=== PATIENT | female | born 1955 | race Caucasian/White ===

== ENCOUNTER 2018-11-01 18:14 | Inpatient (IN) | payer MEDICAID ==
[~2018-11-01] VITALS: Ht 162.6 cm; Wt 73.3 kg
[~2018-11-01 18:14] MED LIST: AMLO5TAB4 PO; BUDE0.25 NEB; DEXT15DR5 EACHEYE; FAMO40TA70 PO; METO-293 PO; OXYM30SP26 BOTHNSTRLS; POLY17PO3 PO; TRAM50TA3 PO
[2018-11-01 19:49] LABS: HEMATOCRIT. 35.5 % (36.0-48.0); HEMOGLOBIN. 11.1 g/dL (12.0-16.0); MEAN CORPUSCULAR HEMOGLOBIN 24.5 pg (28.0-32.0); MEAN CORPUSCULAR VOLUME 78.3 fL (81.0-99.0); MEAN PLATELET VOLUME 7.8 fl (7.4-10.4); PLATELET 510 x1000/uL (130-400); RED BLOOD CELL COUNT 4.53 mill/uL (4.2-5.4); RED CELL DISTRIBUTION WIDTH 16.3 % (11.6-14.6)
[2018-11-01 19:54] LABS: CHLORIDE 100 mEq/L (98-107)
[2018-11-01] MEDS ORDERED: CEFTRIAXONE 1 G PREMIX 50 ML IV ONE (19:59)
[2018-11-01] MEDS ORDERED: VANCOMYCIN 1 G PREMIX 200 ML IV ONE (19:59)
[2018-11-01] MEDS ORDERED: SODIUM CHLORIDE 0.9% 1000ML BAG (SEPSIS BOLUS) IV ONE (20:00)
[2018-11-01 20:21] LABS: PLATELET ESTIMATE INCREASED
[2018-11-01] MEDS ORDERED: CEFEPIME 1,000 MG in DEXTROSE 5% WATER 50 ML IV STA (21:06)
[2018-11-01 21:35] LABS: BG BASE EXCESS 2.4 mmol/L (-2.0-2.0); BG DEOXYHEMOGLOBIN 0.6 % (0.0-5.0); BG FRACTION INSPIRED OXYGEN 100; BG METHEMOGLOBIN 0.3 % (0.0-1.5); BG OXYGEN SATURATION 99.4 % (92.0-98.5); BG OXYHEMOGLOBIN 98.1 % (94.0-97.0); BG PCO2 46.6 mmHg (35.0-45.0); BG PH 7.396 (7.350-7.450); BG PIP 36 cmH2O; BG PO2 281.3 mmHg (75.0-100.0); BG SAMPLE SITE LEFT RADIAL; BG TIDAL VOLUME(mL) 500 mL; BG TOTAL HEMOGLOBIN 14.5 g/dL (12.0-18.0); BG VENT MODE VENT - A/C; BG VENT RATE 12 set
[2018-11-01 21:48] LABS: CLARITY URINE TURBID (CLEAR); COLOR URINE ORANGE (YELLOW); KETONES URINE 1+ (NEGATIVE); LEUKOCYTE ESTERASE URINE TRACE (NEGATIVE); NITRITE URINE NEGATIVE (NEGATIVE); OCCULT BLOOD URINE 3+ (NEGATIVE); PROTEIN URINE 3+ (NEGATIVE); SPECIFIC GRAVITY URINE 1.019 (1.005-1.030); UROBILINOGEN URINE 0.2 E.U./dL (0.2-1.0)
[2018-11-01] MEDS ORDERED: ENOXAPARIN 80MG/0.8ML SYR SUBCUT ONE (22:15)
[2018-11-01] MEDS ORDERED: ENOXAPARIN 80MG/0.8ML SYR SUBCUT SCH (23:22)
[2018-11-02] VITALS (10 sets, daily range): BP systolic 97–146; BP diastolic 59–84
[2018-11-02] MEDS ORDERED: CLON0.1T PO (08:10)
[2018-11-02] MEDS ORDERED: NA P133E RC (08:10)
[2018-11-02] MEDS ORDERED: IBUP-2028 PO (08:10)
[2018-11-02] MEDS ORDERED: MOM MT (08:10)
[2018-11-02] MEDS ORDERED: BISA10SU8 RC (08:10)
[2018-11-02] MEDS ORDERED: POLY17PO3 PO (08:10)
[2018-11-02] MEDS ORDERED: ACET-2178 PO (08:18)
[2018-11-02] MEDS ORDERED: ONDA4TAB5 PO (08:18)
[2018-11-02] MEDS ORDERED: ALBU4TAB6 ENDO (08:18)
[2018-11-02] MEDS ORDERED: ACET325C5 GT (08:18)
[2018-11-02] MEDS ORDERED: ALBU05 NEB (08:24)
[2018-11-02] MEDS ORDERED: CLONIDINE 0.1MG TABLET PO PRN (09:30)
[2018-11-02] MEDS: PANTOPRAZOLE SODIUM 40 MG/VIAL IV SCH (09:59)
[2018-11-02] MEDS: PIPERACILLIN/TAZ 3.375G PREMIX 50 ML IV SCH ×3 (10:15→23:22)
[2018-11-02] MEDS ORDERED: VANCOMYCIN 1 G PREMIX 200 ML IV SCH (11:00)
[2018-11-02 11:53] LABS: HEMATOCRIT 32.4 % (36.0-48.0); HEMOGLOBIN 10.3 g/dL (12.0-16.0); MEAN CORPUSCULAR HEMOGLOBIN 24.9 pg (28.0-32.0); MEAN CORPUSCULAR VOLUME 78.5 fL (81.0-99.0); PLATELET 390 x1000/uL (130-400); RED BLOOD CELL COUNT 4.13 mill/uL (4.2-5.4); RED CELL DISTRIBUTION WIDTH 16.3 % (11.6-14.6)
[2018-11-02] MEDS: IPRATROPIUM/ALBUTEROL 0.5-3(2.5)MG/3ML NEB HHN SCH ×3 (12:20→20:11)
[2018-11-02 16:04] LABS: CHLORIDE 103 mEq/L (98-107)
[2018-11-02] MEDS: KCL 10MEQ/50ML PREMIX 50 ML IV SCH ×3 (19:55→22:06)
[2018-11-02] MEDS ORDERED: FUROSEMIDE 40MG/4ML VIAL IVP NR (22:00)
[2018-11-02] MEDS ORDERED: ACETAMINOPHEN 650MG/20.3ML UDC PO PRN (22:00)
[2018-11-02] MEDS ORDERED: SODIUM CHLORIDE 0.9% 1,000 ML IV SCH (22:00)
[2018-11-02] MEDS: ENOXAPARIN 40MG/0.4ML SYR SUBCUT SCH (22:15)
[2018-11-02] MEDS: LOSARTAN POTASSIUM 50 MG TABLET PO SCH (22:59)
[2018-11-03] VITALS (13 sets, daily range): BP systolic 92–124; BP diastolic 53–71
[2018-11-03] MEDS: IPRATROPIUM/ALBUTEROL 0.5-3(2.5)MG/3ML NEB HHN SCH ×7 (00:17→23:43)
[2018-11-03] MEDS: PIPERACILLIN/TAZ 3.375G PREMIX 50 ML IV SCH ×4 (03:21→21:15)
[2018-11-03 08:44] LABS: BASOPHILS % 0.6 % (0.0-2.0); EOSINOPHILS % 2.1 % (0.0-5.0); HEMATOCRIT. 30.4 % (36.0-48.0); HEMOGLOBIN. 9.7 g/dL (12.0-16.0); LYMPHOCYTES % 12.1 % (20.0-50.0); MEAN CORPUSCULAR HEMOGLOBIN 24.9 pg (28.0-32.0); MEAN CORPUSCULAR VOLUME 77.6 fL (81.0-99.0); MEAN PLATELET VOLUME 7.6 fl (7.4-10.4); NEUTROPHILS % 76.2 % (40.0-76.0); PLATELET 392 x1000/uL (130-400); RED BLOOD CELL COUNT 3.92 mill/uL (4.2-5.4); RED CELL DISTRIBUTION WIDTH 16.8 % (11.6-14.6)
[2018-11-03] MEDS: ENOXAPARIN 40MG/0.4ML SYR SUBCUT SCH (09:00)
[2018-11-03] MEDS: LOSARTAN POTASSIUM 50 MG TABLET PO SCH ×2 (09:00→21:00)
[2018-11-03] MEDS: FUROSEMIDE 40MG/4ML VIAL IVP SCH (09:00)
[2018-11-03] MEDS: PANTOPRAZOLE SODIUM 40 MG/VIAL IV SCH (09:10)
[2018-11-03 09:33] LABS: CHLORIDE 102 mEq/L (98-107)
[2018-11-03] MEDS ORDERED: KCL 20MEQ/100ML PREMIX 100 ML IV NR (20:00)
[2018-11-03] MEDS ORDERED: POTASSIUM CHLORIDE 20MEQ TABLET SR PO NR (20:30)
[2018-11-04] VITALS (11 sets, daily range): BP systolic 101–124; BP diastolic 52–77
[2018-11-04] MEDS: IPRATROPIUM/ALBUTEROL 0.5-3(2.5)MG/3ML NEB HHN SCH ×6 (04:06→19:50)
[2018-11-04] MEDS: PIPERACILLIN/TAZ 3.375G PREMIX 50 ML IV SCH ×2 (05:07→10:41)
[2018-11-04 06:29] LABS: BASOPHILS % 0.6 % (0.0-2.0); EOSINOPHILS % 1.9 % (0.0-5.0); HEMATOCRIT. 32.1 % (36.0-48.0); HEMOGLOBIN. 10.1 g/dL (12.0-16.0); LYMPHOCYTES % 11.5 % (20.0-50.0); MEAN CORPUSCULAR HEMOGLOBIN 24.5 pg (28.0-32.0); MEAN CORPUSCULAR VOLUME 78.1 fL (81.0-99.0); MEAN PLATELET VOLUME 7.8 fl (7.4-10.4); MONOCYTES % 9.7 % (2.0-8.0); NEUTROPHILS % 76.3 % (40.0-76.0); PLATELET 374 x1000/uL (130-400); RED BLOOD CELL COUNT 4.11 mill/uL (4.2-5.4); RED CELL DISTRIBUTION WIDTH 16.4 % (11.6-14.6)
[2018-11-04 06:55] LABS: CHLORIDE 104 mEq/L (98-107)
[2018-11-04] MEDS: FUROSEMIDE 40MG/4ML VIAL IVP SCH (08:22)
[2018-11-04] MEDS: FAMOTIDINE 20MG/2ML VIAL IV SCH ×2 (08:22→20:27)
[2018-11-04] MEDS: ENOXAPARIN 40MG/0.4ML SYR SUBCUT SCH (08:25)
[2018-11-04] MEDS: LOSARTAN POTASSIUM 50 MG TABLET PO SCH ×2 (08:25→20:27)
[2018-11-04] MEDS ORDERED: DOCUSATE SODIUM 100MG CAPSULE PO PRN (15:15)
[2018-11-04] MEDS ORDERED: ACETAMINOPHEN 650MG/20.3ML UDC PO PRN (15:15)
[2018-11-04] MEDS ORDERED: DIPHENHYDRAMINE 50MG/ML VIAL IV PRN (15:15)
[2018-11-04] MEDS ORDERED: HYDROCODONE/ACETAMINOPHEN 5/325MG TABLET PO PRN (15:15)
[2018-11-04] MEDS ORDERED: DEXTROSE 50% WATER 50ML SYRINGE IV PRN (15:15)
[2018-11-04] MEDS ORDERED: ACETAMINOPHEN 650MG SUPP PR PRN (15:15)
[2018-11-04] MEDS ORDERED: LEVOFLOXACIN 500MG PREMIX 100 ML IV SCH (17:00)
[2018-11-04] MEDS: BLOOD SUGAR DIAGNOSTIC STRIP TEST SCH ×3 (17:30→20:23)
[2018-11-04 17:42] LABS: BG BASE EXCESS 2.8 mmol/L (-2.0-2.0); BG CARBOXYHEMOGLOBIN 1.1 % (0.5-1.5); BG DEOXYHEMOGLOBIN 0.8 % (0.0-5.0); BG FRACTION INSPIRED OXYGEN 40; BG HCO3 ACT 26.6 mmol/L (22.0-26.0); BG METHEMOGLOBIN 0.3 % (0.0-1.5); BG OXYGEN SATURATION 99.2 % (92.0-98.5); BG OXYHEMOGLOBIN 97.8 % (94.0-97.0); BG PCO2 37.8 mmHg (35.0-45.0); BG PH 7.465 (7.350-7.450); BG SAMPLE SITE LEFT RADIAL; BG TIDAL VOLUME(mL) 500 mL; BG TOTAL HEMOGLOBIN 10.7 g/dL (12.0-18.0); BG VENT MODE VENT - A/C; BG VENT RATE 12 set
[2018-11-04] MEDS: BUDESONIDE 0.5MG/2ML NEB HHN SCH (19:50)
[2018-11-05] VITALS (12 sets, daily range): BP systolic 101–126; BP diastolic 55–76
[2018-11-05] MEDS: IPRATROPIUM/ALBUTEROL 0.5-3(2.5)MG/3ML NEB HHN SCH ×6 (00:15→23:40)
[2018-11-05 07:04] LABS: HEMATOCRIT 29.2 % (36.0-48.0); HEMOGLOBIN 9.4 g/dL (12.0-16.0); MEAN CORPUSCULAR HEMOGLOBIN 24.9 pg (28.0-32.0); MEAN CORPUSCULAR VOLUME 77.1 fL (81.0-99.0); PLATELET 367 x1000/uL (130-400); RED BLOOD CELL COUNT 3.78 mill/uL (4.2-5.4); RED CELL DISTRIBUTION WIDTH 16.5 % (11.6-14.6)
[2018-11-05 07:24] LABS: CHLORIDE 104 mEq/L (98-107)
[2018-11-05] MEDS: BLOOD SUGAR DIAGNOSTIC STRIP TEST SCH ×4 (07:30→21:00)
[2018-11-05] MEDS: BUDESONIDE 0.5MG/2ML NEB HHN SCH ×2 (08:22→19:35)
[2018-11-05] MEDS: ENOXAPARIN 40MG/0.4ML SYR SUBCUT SCH (09:00)
[2018-11-05] MEDS: FAMOTIDINE 20MG/2ML VIAL IV SCH ×2 (09:25→21:23)
[2018-11-05] MEDS: LOSARTAN POTASSIUM 50 MG TABLET PO SCH ×2 (09:25→21:23)
[2018-11-05] MEDS ORDERED: POTASSIUM CHLORIDE 20MEQ TABLET SR PO NR (10:38)
[2018-11-05] MEDS: METHYLPREDNISOLONE SOD SUCC 40 MG/ML VIAL IV SCH (12:01)
[2018-11-05 14:27] LABS: BG BASE EXCESS 1.2 mmol/L (-2.0-2.0); BG CARBOXYHEMOGLOBIN 0.5 % (0.5-1.5); BG CPAP (cmH2O) 0 cm(H2O); BG HCO3 ACT 25.6 mmol/L (22.0-26.0); BG METHEMOGLOBIN 0.3 % (0.0-1.5); BG OXYHEMOGLOBIN 98.2 % (94.0-97.0); BG PCO2 39.8 mmHg (35.0-45.0); BG PH 7.427 (7.350-7.450); BG PO2 166.6 mmHg (75.0-100.0); BG SAMPLE SITE RIGHT RADIAL; BG TOTAL HEMOGLOBIN 10.9 g/dL (12.0-18.0); BG VENT MODE VENT - CPAP
[2018-11-05] MEDS ORDERED: LIDOCAINE HCL/PF 1% 2ML VIAL ONE (14:59)
[2018-11-05] MEDS ORDERED: LEVOFLOXACIN 500MG TABLET PO SCH (16:49)
[2018-11-06] VITALS (13 sets, daily range): BP systolic 123–153; BP diastolic 56–93
[2018-11-06] MEDS: IPRATROPIUM/ALBUTEROL 0.5-3(2.5)MG/3ML NEB HHN SCH ×6 (04:16→23:51)
[2018-11-06] MEDS: BLOOD SUGAR DIAGNOSTIC STRIP TEST SCH ×4 (07:30→21:00)
[2018-11-06] MEDS: LOSARTAN POTASSIUM 50 MG TABLET PO SCH ×2 (08:40→21:20)
[2018-11-06] MEDS: FAMOTIDINE 20MG/2ML VIAL IV SCH ×2 (08:41→21:20)
[2018-11-06] MEDS: METHYLPREDNISOLONE SOD SUCC 40 MG/ML VIAL IV SCH ×3 (08:41→21:20)
[2018-11-06] MEDS: BUDESONIDE 0.5MG/2ML NEB HHN SCH ×2 (08:59→20:34)
[2018-11-06] MEDS: ENOXAPARIN 40MG/0.4ML SYR SUBCUT SCH (09:00)
[2018-11-06] MEDS: LEVOFLOXACIN 500MG TABLET PO SCH (10:19)
[2018-11-06 11:52] LABS: BG BASE EXCESS -3.6 mmol/L (-2.0-2.0); BG CARBOXYHEMOGLOBIN 0.8 % (0.5-1.5); BG DEOXYHEMOGLOBIN 0.9 % (0.0-5.0); BG FRACTION INSPIRED OXYGEN 35; BG HCO3 ACT 17.9 mmol/L (22.0-26.0); BG METHEMOGLOBIN 0.3 % (0.0-1.5); BG OXYGEN SATURATION 99.1 % (92.0-98.5); BG PCO2 22.6 mmHg (35.0-45.0); BG PH 7.517 (7.350-7.450); BG PO2 149.4 mmHg (75.0-100.0); BG SAMPLE SITE RIGHT RADIAL; BG TIDAL VOLUME(mL) 500 mL; BG TOTAL HEMOGLOBIN 10.4 g/dL (12.0-18.0); BG VENT MODE VENT - A/C; BG VENT RATE 12 set
[2018-11-06 18:47] LABS: HEMATOCRIT 32.8 % (36.0-48.0); HEMOGLOBIN 10.5 g/dL (12.0-16.0); MEAN CORPUSCULAR HEMOGLOBIN 24.8 pg (28.0-32.0); MEAN CORPUSCULAR VOLUME 77.8 fL (81.0-99.0); PLATELET 386 x1000/uL (130-400); RED BLOOD CELL COUNT 4.22 mill/uL (4.2-5.4); RED CELL DISTRIBUTION WIDTH 16.6 % (11.6-14.6)
[2018-11-06 19:05] LABS: CHLORIDE 104 mEq/L (98-107)
[2018-11-07] VITALS (13 sets, daily range): BP systolic 117–163; BP diastolic 65–99
[2018-11-07] MEDS: IPRATROPIUM/ALBUTEROL 0.5-3(2.5)MG/3ML NEB HHN SCH ×5 (04:00→19:46)
[2018-11-07] MEDS: METHYLPREDNISOLONE SOD SUCC 40 MG/ML VIAL IV SCH ×2 (06:35→13:37)
[2018-11-07] MEDS: BLOOD SUGAR DIAGNOSTIC STRIP TEST SCH ×4 (07:30→21:00)
[2018-11-07] MEDS: BUDESONIDE 0.5MG/2ML NEB HHN SCH (07:56)
[2018-11-07] MEDS: ENOXAPARIN 40MG/0.4ML SYR SUBCUT SCH (08:49)
[2018-11-07] MEDS: LOSARTAN POTASSIUM 50 MG TABLET PO SCH ×2 (08:50→20:43)
[2018-11-07] MEDS: FAMOTIDINE 20MG/2ML VIAL IV SCH ×2 (08:50→20:43)
[2018-11-07] MEDS ORDERED: LORAZEPAM 2MG/ML CPJ IV PRN (10:30)
[2018-11-07] MEDS: LEVOFLOXACIN 500MG TABLET PO SCH (11:28)
== END 2018-11-07 23:30 | DRG 720 ==
LOC: ER 18:14 → 5EST 21:05 → ENRESERV 23:12 → EDBEDREQSVC 11-02 01:02 → EDBEDREQTM 11-02 01:02 → ENRESERV 11-02 01:07
PROVIDERS: ADMIT Internal Medicine; ATTEND Internal Medicine
PROC: 5A1955Z Respiratory Ventilation, Greater than 96 Consecutive Hours (ICD-10-PCS; principal; 2018-11-01)
DX: A41.9 Sepsis, unspecified organism (principal); J96.21 Acute and chronic respiratory failure with hypoxia; J95.851 Ventilator associated pneumonia; E87.70 Fluid overload, unspecified; J44.1 Chronic obstructive pulmonary disease with (acute) exacerbation; E11.649 Type 2 diabetes mellitus with hypoglycemia without coma; E87.3 Alkalosis; F41.9 Anxiety disorder, unspecified; K21.9 Gastro-esophageal reflux disease without esophagitis; I10 Essential (primary) hypertension; J44.0 Chronic obstructive pulmonary disease with (acute) lower respiratory infection; F32.9 Major depressive disorder, single episode, unspecified; N39.0 Urinary tract infection, site not specified; R79.1 Abnormal coagulation profile; Y95 Nosocomial condition; Z93.0 Tracheostomy status; Z99.11 Dependence on respirator [ventilator] status; Z88.8 Allergy status to other drugs, medicaments and biological substances
CPT/HCPCS: 36415; 36600; 71045; 71250; 76604; 78580; 80048; 80202; 82375; 82805; 83605; 83735; 83880; 84145; 84443; 84484; 85027; 85379; 86300; 87070; 87077; 87186; 93005; 93306; 93970; 93971; 94002; 94003; 94640; 96365; 96366; 96368; 96375; 99291; C9113; J0692; J0696; J1650; J1940; J1956; J2060; J2543; J2920; J3370; J3480; J3490; J7030; J7050; J7060; J7620; J7626

== ENCOUNTER 2019-02-15 14:13 | Inpatient (IN) | payer MEDICAID ==
[~2019-02-15] VITALS: Ht 162.6 cm; Wt 78.5 kg
[~2019-02-15 14:13] MED LIST changes: +ACET-2178 PO; +ACET325C5 GT; +ALBU05 NEB; +ALBU4TAB6 ENDO; +BISA10SU8 RC; +CLON0.1T PO; +IBUP-2028 PO; +MOM MT; +NA P133E RC; +ONDA4TAB5 PO; -POLY17PO3 PO
[2019-02-15] MEDS ORDERED: PIPERACILLIN/TAZ 3.375G PREMIX 50 ML IV ONE (15:00)
[2019-02-15] MEDS ORDERED: VANCOMYCIN 1 G PREMIX 200 ML IV ONE (15:00)
[2019-02-15] MEDS ORDERED: SODIUM CHLORIDE 0.9% 1000ML BAG (SEPSIS BOLUS) IV ONE (15:00)
[2019-02-15 15:22] LABS: HEMATOCRIT. 31.4 % (36.0-48.0); MEAN CORPUSCULAR HEMOGLOBIN 25.5 pg (28.0-32.0); MEAN CORPUSCULAR VOLUME 80.1 fL (81.0-99.0); MEAN PLATELET VOLUME 7.3 fl (7.4-10.4); PLATELET 333 x1000/uL (130-400); RED BLOOD CELL COUNT 3.92 mill/uL (4.2-5.4); RED CELL DISTRIBUTION WIDTH 17.4 % (11.6-14.6)
[2019-02-15 15:24] LABS: BG BASE EXCESS -0.7 mmol/L (-2.0-2.0); BG CARBOXYHEMOGLOBIN 0.3 % (0.5-1.5); BG DEOXYHEMOGLOBIN 2.9 % (0.0-5.0); BG HCO3 ACT 22.8 mmol/L (22.0-26.0); BG METHEMOGLOBIN 0.2 % (0.0-1.5); BG OXYGEN SATURATION 97.1 % (92.0-98.5); BG OXYHEMOGLOBIN 96.6 % (94.0-97.0); BG PCO2 33.1 mmHg (35.0-45.0); BG PH 7.456 (7.350-7.450); BG PO2 88.2 mmHg (75.0-100.0); BG SAMPLE SITE RIGHT RADIAL; BG TIDAL VOLUME(mL) 500 mL; BG TOTAL HEMOGLOBIN 10.1 g/dL (12.0-18.0); BG VENT MODE VENT - A/C; BG VENT RATE 12 set
[2019-02-15 15:26] LABS: CHLORIDE 102 mEq/L (98-107)
[2019-02-15 15:27] LABS: PARTIAL THROMBOPLASTIN TIME 28.5 sec (23.4-31.0); PROTHROMBIN TIME 9.8 sec (9.1-11.1)
[2019-02-15 17:09] LABS: PLATELET ESTIMATE NORMAL
[2019-02-15 19:17] LABS: CLARITY URINE CLOUDY (CLEAR); COLOR URINE YELLOW (YELLOW); KETONES URINE NEGATIVE (NEGATIVE); LEUKOCYTE ESTERASE URINE NEGATIVE (NEGATIVE); NITRITE URINE NEGATIVE (NEGATIVE); OCCULT BLOOD URINE 3+ (NEGATIVE); PH URINE 5.5 (4.5-8.0); PROTEIN URINE 2+ (NEGATIVE); SPECIFIC GRAVITY URINE 1.022 (1.005-1.030); UROBILINOGEN URINE 0.2 E.U./dL (0.2-1.0)
[2019-02-16] VITALS (13 sets, daily range): BP systolic 89–151; BP diastolic 50–73
[2019-02-16] MEDS ORDERED: PIPERACILLIN/TAZ 3.375G PREMIX 50 ML IV SCH (02:45)
[2019-02-16] MEDS ORDERED: ACETAMINOPHEN 325 MG PO SCH (02:45)
[2019-02-16] MEDS ORDERED: ACETAMINOPHEN 650MG/20.3ML UDC PO PRN (03:00)
[2019-02-16] MEDS: ACETAMINOPHEN 325MG TABLET PO PRN ×2 (03:23→16:26)
[2019-02-16] MEDS: ALBUTEROL (0.083%) 2.5MG/3ML NEB HHN SCH ×5 (04:10→22:54)
[2019-02-16] MEDS: VANCOMYCIN 1 G PREMIX 200 ML IV SCH ×2 (04:31→16:26)
[2019-02-16] MEDS: PIPERACILLIN/TAZ 3.375G PREMIX 50 ML IV SCH ×4 (04:31→23:53)
[2019-02-16 06:44] LABS: BASOPHILS % 0.2 % (0.0-2.0); EOSINOPHILS % 0.1 % (0.0-5.0); HEMATOCRIT. 27.2 % (36.0-48.0); HEMOGLOBIN. 8.7 g/dL (12.0-16.0); MEAN CORPUSCULAR HEMOGLOBIN 25.3 pg (28.0-32.0); MEAN CORPUSCULAR VOLUME 78.7 fL (81.0-99.0); MEAN PLATELET VOLUME 7.3 fl (7.4-10.4); MONOCYTES % 11.3 % (2.0-8.0); NEUTROPHILS % 76.4 % (40.0-76.0); PLATELET 333 x1000/uL (130-400); RED BLOOD CELL COUNT 3.45 mill/uL (4.2-5.4); RED CELL DISTRIBUTION WIDTH 17.2 % (11.6-14.6)
[2019-02-16 06:53] LABS: CHLORIDE 107 mEq/L (98-107)
[2019-02-16] MEDS: BUDESONIDE 0.5MG/2ML NEB HHN SCH ×2 (08:31→20:09)
[2019-02-16] MEDS ORDERED: HEPARIN 5000 UNITS/ML VIAL SUBCUT SCH (09:00)
[2019-02-16] MEDS ORDERED: LORAZEPAM 2MG/ML CPJ IV PRN (15:00)
[2019-02-16] MEDS ORDERED: CLONIDINE 0.1MG TABLET PO PRN (15:00)
[2019-02-16] MEDS ORDERED: ONDANSETRON HCL 4MG/2ML INJ IV PRN (15:00)
[2019-02-16] MEDS ORDERED: HYDROCODONE/ACETAMINOPHEN 5/325MG TABLET PO PRN (15:00)
[2019-02-16] MEDS ORDERED: DEXTROSE 50% WATER 50ML SYRINGE IV PRN (15:00)
[2019-02-16] MEDS ORDERED: DIPHENHYDRAMINE 50MG/ML VIAL IV PRN (15:00)
[2019-02-16] MEDS: METHYLPREDNISOLONE SOD SUCC 40 MG/ML VIAL IV SCH ×2 (16:26→23:53)
[2019-02-16] MEDS: BLOOD SUGAR DIAGNOSTIC STRIP TEST SCH ×2 (17:42→21:00)
[2019-02-16] MEDS: INSULIN LISPRO 100 UNITS/ML SUBCUT SCH ×2 (18:23→22:29)
[2019-02-16] MEDS: MAGNESIUM HYDROXIDE 400MG/5ML 30ML UDC PO SCH (21:41)
[2019-02-17] VITALS (10 sets, daily range): BP systolic 102–141; BP diastolic 54–79
[2019-02-17] MEDS: ALBUTEROL (0.083%) 2.5MG/3ML NEB HHN SCH ×8 (02:15→23:59)
[2019-02-17 03:46] LABS: CHLORIDE 107 mEq/L (98-107)
[2019-02-17 03:52] LABS: TOTAL IRON BINDING CAPACITY 446 ug/dL (250-450)
[2019-02-17] MEDS: VANCOMYCIN 1 G PREMIX 200 ML IV SCH (04:02)
[2019-02-17 04:11] LABS: HEMATOCRIT 29.1 % (36.0-48.0); HEMOGLOBIN 9.1 g/dL (12.0-16.0); MEAN CORPUSCULAR HEMOGLOBIN 25.2 pg (28.0-32.0); RED BLOOD CELL COUNT 3.59 mill/uL (4.2-5.4); RED CELL DISTRIBUTION WIDTH 17.6 % (11.6-14.6)
[2019-02-17 04:28] LABS: PLATELET 373 x1000/uL (130-400)
[2019-02-17] MEDS: PIPERACILLIN/TAZ 3.375G PREMIX 50 ML IV SCH ×4 (06:16→23:26)
[2019-02-17] MEDS: BLOOD SUGAR DIAGNOSTIC STRIP TEST SCH ×4 (07:30→21:00)
[2019-02-17] MEDS: METHYLPREDNISOLONE SOD SUCC 40 MG/ML VIAL IV SCH ×3 (08:52→23:26)
[2019-02-17] MEDS: BUDESONIDE 0.5MG/2ML NEB HHN SCH ×2 (08:55→20:24)
[2019-02-17] MEDS: INSULIN LISPRO 100 UNITS/ML SUBCUT SCH ×4 (08:56→21:29)
[2019-02-17] MEDS ORDERED: IOHEXOL-300 100 ML BOTTLE ONE (09:34)
[2019-02-17] MEDS: ACETAMINOPHEN 325MG TABLET PO PRN (10:49)
[2019-02-17] MEDS ORDERED: DEXTROSE 50% WATER 50ML SYRINGE IV PRN (14:00)
[2019-02-17] MEDS ORDERED: INSULIN LISPRO 100 UNITS/ML SUBCUT NR ×2 (14:00→18:00)
[2019-02-17] MEDS: VANCOMYCIN 1250MG in DEXTROSE 5% WATER 250ML IV SCH (15:26)
[2019-02-17] MEDS: MAGNESIUM HYDROXIDE 400MG/5ML 30ML UDC PO SCH (21:00)
[2019-02-17] MEDS: INSULIN GLARGINE UD 100 UNITS/ML SYR SUBCUT SCH (21:29)
[2019-02-18] VITALS (24 sets, daily range): BP systolic 102–174; BP diastolic 54–98
[2019-02-18] MEDS: VANCOMYCIN 1250MG in DEXTROSE 5% WATER 250ML IV SCH ×2 (03:14→15:08)
[2019-02-18] MEDS: ALBUTEROL (0.083%) 2.5MG/3ML NEB HHN SCH ×6 (04:27→22:36)
[2019-02-18] MEDS: PIPERACILLIN/TAZ 3.375G PREMIX 50 ML IV SCH ×4 (06:13→23:16)
[2019-02-18] MEDS: BLOOD SUGAR DIAGNOSTIC STRIP TEST SCH ×4 (07:30→21:19)
[2019-02-18] MEDS: METHYLPREDNISOLONE SOD SUCC 40 MG/ML VIAL IV SCH ×2 (08:39→23:49)
[2019-02-18] MEDS: INSULIN LISPRO 100 UNITS/ML SUBCUT SCH ×4 (08:41→21:42)
[2019-02-18] MEDS: BUDESONIDE 0.5MG/2ML NEB HHN SCH ×2 (08:58→22:36)
[2019-02-18] MEDS: INSULIN GLARGINE UD 100 UNITS/ML SYR SUBCUT SCH (10:46)
[2019-02-18 11:27] LABS: HEMATOCRIT 29.1 % (36.0-48.0); HEMOGLOBIN 9.4 g/dL (12.0-16.0); PLATELET 415 x1000/uL (130-400); RED BLOOD CELL COUNT 3.74 mill/uL (4.2-5.4); RED CELL DISTRIBUTION WIDTH 17.1 % (11.6-14.6)
[2019-02-18 11:35] LABS: CHLORIDE 106 mEq/L (98-107)
[2019-02-18] MEDS ORDERED: SODIUM BICARBONATE 4% (2.4MEQ) 5ML VIAL IV ONE (13:27)
[2019-02-18 13:31] LABS: BG BASE EXCESS 2.9 mmol/L (-2.0-2.0); BG CARBOXYHEMOGLOBIN 0.3 % (0.5-1.5); BG DEOXYHEMOGLOBIN 2.8 % (0.0-5.0); BG HCO3 ACT 25.3 mmol/L (22.0-26.0); BG METHEMOGLOBIN 0.2 % (0.0-1.5); BG OXYGEN SATURATION 97.2 % (92.0-98.5); BG OXYHEMOGLOBIN 96.7 % (94.0-97.0); BG PCO2 30.5 mmHg (35.0-45.0); BG PH 7.536 (7.350-7.450); BG PO2 88.3 mmHg (75.0-100.0); BG SAMPLE SITE RIGHT RADIAL; BG TIDAL VOLUME(mL) 450 mL; BG TOTAL HEMOGLOBIN 9.4 g/dL (12.0-18.0); BG VENT MODE VENT - A/C; BG VENT RATE 12 set
[2019-02-18] MEDS: ACETAMINOPHEN 325MG TABLET PO PRN (15:07)
[2019-02-18 20:18] LABS: BG BASE EXCESS 0.6 mmol/L (-2.0-2.0); BG CARBOXYHEMOGLOBIN 0.4 % (0.5-1.5); BG FRACTION INSPIRED OXYGEN 100; BG HCO3 ACT 25.5 mmol/L (22.0-26.0); BG METHEMOGLOBIN 0.2 % (0.0-1.5); BG OXYGEN SATURATION 60.8 % (92.0-98.5); BG OXYHEMOGLOBIN 60.4 % (94.0-97.0); BG PCO2 41.9 mmHg (35.0-45.0); BG PEEP (cmH2O) 0 cmH2O; BG PH 7.402 (7.350-7.450); BG PIP 21 cmH2O; BG PO2 31.9 mmHg (75.0-100.0); BG SAMPLE SITE RIGHT RADIAL; BG TIDAL VOLUME(mL) 450 mL; BG TOTAL HEMOGLOBIN 13.8 g/dL (12.0-18.0); BG VENT MODE VENT - A/C; BG VENT RATE 12 set
[2019-02-18] MEDS ORDERED: METHYLPREDNISOLONE SOD SUCC 40 MG/ML VIAL IV SCH (21:00)
[2019-02-18] MEDS: MAGNESIUM HYDROXIDE 400MG/5ML 30ML UDC PO SCH (21:41)
[2019-02-18] MEDS: LORAZEPAM 2MG/ML CPJ IV PRN (22:15)
[2019-02-18 23:56] LABS: BG CARBOXYHEMOGLOBIN 0.1 % (0.5-1.5); BG DEOXYHEMOGLOBIN 12.9 % (0.0-5.0); BG FRACTION INSPIRED OXYGEN 100; BG HCO3 ACT 25.4 mmol/L (22.0-26.0); BG METHEMOGLOBIN 0.2 % (0.0-1.5); BG OXYGEN SATURATION 87.1 % (92.0-98.5); BG OXYHEMOGLOBIN 86.8 % (94.0-97.0); BG PCO2 44.2 mmHg (35.0-45.0); BG PH 7.377 (7.350-7.450); BG PO2 56.1 mmHg (75.0-100.0); BG SAMPLE SITE RIGHT RADIAL; BG TIDAL VOLUME(mL) 450 mL; BG TOTAL HEMOGLOBIN 12.8 g/dL (12.0-18.0); BG VENT MODE VENT - A/C; BG VENT RATE 12 set
[2019-02-19] VITALS (96 sets, daily range): BP systolic 96–179; BP diastolic 52–109
[2019-02-19] MEDS: ALBUTEROL (0.083%) 2.5MG/3ML NEB HHN SCH ×8 (00:27→20:11)
[2019-02-19] MEDS: VANCOMYCIN 1250MG in DEXTROSE 5% WATER 250ML IV SCH (02:15)
[2019-02-19] MEDS: LORAZEPAM 2MG/ML CPJ IV PRN ×2 (04:59→21:10)
[2019-02-19] MEDS: METHYLPREDNISOLONE SOD SUCC 40 MG/ML VIAL IV SCH ×3 (05:00→20:56)
[2019-02-19] MEDS: PIPERACILLIN/TAZ 3.375G PREMIX 50 ML IV SCH ×3 (05:00→19:05)
[2019-02-19] MEDS: BLOOD SUGAR DIAGNOSTIC STRIP TEST SCH ×4 (05:35→20:44)
[2019-02-19] MEDS: INSULIN LISPRO 100 UNITS/ML SUBCUT SCH ×4 (06:20→21:22)
[2019-02-19 06:49] LABS: HEMATOCRIT 29.9 % (36.0-48.0); HEMOGLOBIN 9.5 g/dL (12.0-16.0); MEAN CORPUSCULAR HEMOGLOBIN 25.1 pg (28.0-32.0); PLATELET 513 x1000/uL (130-400); RED BLOOD CELL COUNT 3.78 mill/uL (4.2-5.4); RED CELL DISTRIBUTION WIDTH 17.4 % (11.6-14.6)
[2019-02-19 07:15] LABS: CHLORIDE 106 mEq/L (98-107)
[2019-02-19] MEDS: BUDESONIDE 0.5MG/2ML NEB HHN SCH (07:50)
[2019-02-19 08:45] LABS: BG BASE EXCESS 2.6 mmol/L (-2.0-2.0); BG CARBOXYHEMOGLOBIN 0.3 % (0.5-1.5); BG DEOXYHEMOGLOBIN 1.1 % (0.0-5.0); BG FRACTION INSPIRED OXYGEN 80; BG HCO3 ACT 27.4 mmol/L (22.0-26.0); BG METHEMOGLOBIN 0.3 % (0.0-1.5); BG OXYGEN SATURATION 98.9 % (92.0-98.5); BG OXYHEMOGLOBIN 98.3 % (94.0-97.0); BG PCO2 43.2 mmHg (35.0-45.0); BG PO2 147.7 mmHg (75.0-100.0); BG SAMPLE SITE RIGHT RADIAL; BG TIDAL VOLUME(mL) 450 mL; BG TOTAL HEMOGLOBIN 9.8 g/dL (12.0-18.0); BG VENT MODE VENT - A/C; BG VENT RATE 12 set
[2019-02-19] MEDS ORDERED: POTASSIUM CHLORIDE 20MEQ TABLET SR PO SCH ×2 (11:45→16:00)
[2019-02-19] MEDS: INSULIN GLARGINE UD 100 UNITS/ML SYR SUBCUT SCH (11:46)
[2019-02-19] MEDS: ACETAMINOPHEN 325MG TABLET PO PRN (15:42)
[2019-02-19 18:26] LABS: HEMATOCRIT 27.8 % (36.0-48.0); HEMOGLOBIN 8.9 g/dL (12.0-16.0); MEAN CORPUSCULAR HEMOGLOBIN 24.9 pg (28.0-32.0); MEAN CORPUSCULAR VOLUME 78.3 fL (81.0-99.0); PLATELET 454 x1000/uL (130-400); RED BLOOD CELL COUNT 3.55 mill/uL (4.2-5.4); RED CELL DISTRIBUTION WIDTH 17.2 % (11.6-14.6)
[2019-02-19] MEDS: MAGNESIUM HYDROXIDE 400MG/5ML 30ML UDC PO SCH (21:21)
[2019-02-19] MEDS: VANCOMYCIN 1 G PREMIX 200 ML IV SCH (21:21)
[2019-02-20] VITALS (61 sets, daily range): BP systolic 109–162; BP diastolic 49–93
[2019-02-20] MEDS: ALBUTEROL (0.083%) 2.5MG/3ML NEB HHN SCH ×7 (00:18→20:54)
[2019-02-20] MEDS: PIPERACILLIN/TAZ 3.375G PREMIX 50 ML IV SCH ×5 (01:00→23:56)
[2019-02-20] MEDS: ACETAMINOPHEN 325MG TABLET PO PRN (03:45)
[2019-02-20] MEDS: METHYLPREDNISOLONE SOD SUCC 40 MG/ML VIAL IV SCH ×3 (05:07→21:23)
[2019-02-20 05:33] LABS: CHLORIDE 105 mEq/L (98-107)
[2019-02-20] MEDS: BLOOD SUGAR DIAGNOSTIC STRIP TEST SCH ×4 (07:56→22:00)
[2019-02-20] MEDS: INSULIN LISPRO 100 UNITS/ML SUBCUT SCH ×4 (08:09→21:53)
[2019-02-20] MEDS: VANCOMYCIN 1 G PREMIX 200 ML IV SCH ×2 (09:39→21:24)
[2019-02-20] MEDS ORDERED: INSULIN GLARGINE UD 100 UNITS/ML SYR SUBCUT SCH (10:00)
[2019-02-20] MEDS: SODIUM CHLORIDE 0.45% 1,000 ML IV SCH (18:00)
[2019-02-20] MEDS: MAGNESIUM HYDROXIDE 400MG/5ML 30ML UDC PO SCH ×2 (21:00→21:24)
[2019-02-21] VITALS (12 sets, daily range): BP systolic 112–141; BP diastolic 54–77
[2019-02-21] MEDS: ALBUTEROL (0.083%) 2.5MG/3ML NEB HHN SCH ×7 (00:29→23:32)
[2019-02-21] MEDS: LORAZEPAM 2MG/ML CPJ IV PRN (04:02)
[2019-02-21] MEDS: BLOOD SUGAR DIAGNOSTIC STRIP TEST SCH ×4 (05:36→21:11)
[2019-02-21] MEDS: PIPERACILLIN/TAZ 3.375G PREMIX 50 ML IV SCH ×3 (05:37→18:55)
[2019-02-21] MEDS: INSULIN LISPRO 100 UNITS/ML SUBCUT SCH ×4 (06:01→21:00)
[2019-02-21 07:01] LABS: HEMATOCRIT 27.2 % (36.0-48.0); HEMOGLOBIN 8.8 g/dL (12.0-16.0); MEAN CORPUSCULAR HEMOGLOBIN 25.4 pg (28.0-32.0); MEAN CORPUSCULAR VOLUME 78.3 fL (81.0-99.0); PLATELET 441 x1000/uL (130-400); RED BLOOD CELL COUNT 3.47 mill/uL (4.2-5.4); RED CELL DISTRIBUTION WIDTH 16.9 % (11.6-14.6)
[2019-02-21 07:24] LABS: CHLORIDE 104 mEq/L (98-107)
[2019-02-21 08:41] LABS: BG BASE EXCESS 1.2 mmol/L (-2.0-2.0); BG CARBOXYHEMOGLOBIN 0.3 % (0.5-1.5); BG DEOXYHEMOGLOBIN 1.9 % (0.0-5.0); BG FRACTION INSPIRED OXYGEN 55; BG METHEMOGLOBIN 0.3 % (0.0-1.5); BG OXYGEN SATURATION 98.1 % (92.0-98.5); BG OXYHEMOGLOBIN 97.5 % (94.0-97.0); BG PCO2 36.7 mmHg (35.0-45.0); BG PH 7.452 (7.350-7.450); BG PO2 109.7 mmHg (75.0-100.0); BG SAMPLE SITE RIGHT RADIAL; BG TIDAL VOLUME(mL) 450 mL; BG TOTAL HEMOGLOBIN 9.7 g/dL (12.0-18.0); BG VENT MODE VENT - A/C; BG VENT RATE 12 set
[2019-02-21] MEDS: SODIUM CHLORIDE 0.45% 1,000 ML IV SCH ×2 (09:04→20:38)
[2019-02-21] MEDS: METHYLPREDNISOLONE SOD SUCC 40 MG/ML VIAL IV SCH ×2 (09:05→21:10)
[2019-02-21] MEDS: INSULIN GLARGINE UD 100 UNITS/ML SYR SUBCUT SCH (10:00)
[2019-02-21] MEDS: MAGNESIUM HYDROXIDE 400MG/5ML 30ML UDC PO SCH (21:00)
[2019-02-22] VITALS (13 sets, daily range): BP systolic 110–138; BP diastolic 56–72
[2019-02-22] MEDS: PIPERACILLIN/TAZ 3.375G PREMIX 50 ML IV SCH ×5 (00:16→23:58)
[2019-02-22] MEDS: ALBUTEROL (0.083%) 2.5MG/3ML NEB HHN SCH ×6 (03:12→23:56)
[2019-02-22 05:48] LABS: HEMOGLOBIN 8.1 g/dL (12.0-16.0); MEAN CORPUSCULAR HEMOGLOBIN 25.3 pg (28.0-32.0); MEAN CORPUSCULAR VOLUME 78.3 fL (81.0-99.0); PLATELET 427 x1000/uL (130-400); RED BLOOD CELL COUNT 3.19 mill/uL (4.2-5.4); RED CELL DISTRIBUTION WIDTH 17.2 % (11.6-14.6)
[2019-02-22] MEDS: BLOOD SUGAR DIAGNOSTIC STRIP TEST SCH ×4 (07:30→21:58)
[2019-02-22] MEDS: INSULIN LISPRO 100 UNITS/ML SUBCUT SCH ×4 (08:00→21:00)
[2019-02-22] MEDS: METHYLPREDNISOLONE SOD SUCC 40 MG/ML VIAL IV SCH ×2 (09:34→20:19)
[2019-02-22] MEDS: INSULIN GLARGINE UD 100 UNITS/ML SYR SUBCUT SCH (09:39)
[2019-02-22] MEDS ORDERED: LIDOCAINE HCL/PF 1% 2ML VIAL ONE (10:50)
[2019-02-22 11:41] LABS: BG BASE EXCESS 2.2 mmol/L (-2.0-2.0); BG CARBOXYHEMOGLOBIN 0.3 % (0.5-1.5); BG DEOXYHEMOGLOBIN 2.7 % (0.0-5.0); BG FRACTION INSPIRED OXYGEN 40; BG HCO3 ACT 25.6 mmol/L (22.0-26.0); BG METHEMOGLOBIN 0.1 % (0.0-1.5); BG OXYGEN SATURATION 97.3 % (92.0-98.5); BG OXYHEMOGLOBIN 96.9 % (94.0-97.0); BG PCO2 35.3 mmHg (35.0-45.0); BG PH 7.478 (7.350-7.450); BG PO2 93.8 mmHg (75.0-100.0); BG SAMPLE SITE RIGHT RADIAL; BG TIDAL VOLUME(mL) 450 mL; BG TOTAL HEMOGLOBIN 10.1 g/dL (12.0-18.0); BG VENT MODE VENT - A/C; BG VENT RATE 12 set
[2019-02-22 11:45] LABS: HEMATOCRIT 26.2 % (36.0-48.0); HEMOGLOBIN 8.4 g/dL (12.0-16.0)
[2019-02-22 11:54] LABS: CHLORIDE 102 mEq/L (98-107)
[2019-02-22] MEDS: VANCOMYCIN 1250MG in DEXTROSE 5% WATER 250ML IV SCH (14:41)
[2019-02-22] MEDS: MAGNESIUM HYDROXIDE 400MG/5ML 30ML UDC PO SCH (20:19)
[2019-02-22] MEDS: SODIUM CHLORIDE 0.45% 1,000 ML IV SCH (23:59)
[2019-02-23] VITALS (10 sets, daily range): BP systolic 111–159; BP diastolic 50–82
[2019-02-23] MEDS: ALBUTEROL (0.083%) 2.5MG/3ML NEB HHN SCH ×5 (03:55→20:22)
[2019-02-23 06:43] LABS: HEMOGLOBIN 8.8 g/dL (12.0-16.0); MEAN CORPUSCULAR HEMOGLOBIN 25.6 pg (28.0-32.0); MEAN CORPUSCULAR VOLUME 78.8 fL (81.0-99.0); PLATELET 493 x1000/uL (130-400); RED BLOOD CELL COUNT 3.42 mill/uL (4.2-5.4); RED CELL DISTRIBUTION WIDTH 17.4 % (11.6-14.6)
[2019-02-23] MEDS: BLOOD SUGAR DIAGNOSTIC STRIP TEST SCH ×3 (07:48→17:39)
[2019-02-23] MEDS: INSULIN LISPRO 100 UNITS/ML SUBCUT SCH ×3 (07:48→17:56)
[2019-02-23] MEDS: METHYLPREDNISOLONE SOD SUCC 40 MG/ML VIAL IV SCH (08:07)
[2019-02-23] MEDS: VANCOMYCIN 1250MG in DEXTROSE 5% WATER 250ML IV SCH (08:07)
[2019-02-23] MEDS: FERROUS SULFATE 325MG TABLET PO SCH ×2 (09:00→16:54)
[2019-02-23 09:03] LABS: CHLORIDE 103 mEq/L (98-107)
[2019-02-23] MEDS: INSULIN GLARGINE UD 100 UNITS/ML SYR SUBCUT SCH (11:18)
[2019-02-23] MEDS ORDERED: CALCIUM GLUCONATE 1,000 MG in DEXT 5% WATER 90 ML IV NR (14:30)
[2019-02-24] MEDS ORDERED: PREDNISONE 20MG TABLET PO SCH (09:00)
[2019-02-28] MEDS ORDERED: PREDNISONE 20MG TABLET PO SCH (09:00)
[2019-03-04] MEDS ORDERED: PREDNISONE 10MG TABLET PO SCH (09:00)
== END 2019-02-23 21:02 | DRG 130 ==
LOC: ER 14:19 → 5EST 16:29 → EDBEDREQ 16:51 → ENRESERV 22:52 → MICUSO 02-18 21:22 → 5EST 02-20 15:39
PROVIDERS: ADMIT Internal Medicine; ATTEND Internal Medicine
PROC: 5A1955Z Respiratory Ventilation, Greater than 96 Consecutive Hours (ICD-10-PCS; principal; 2019-02-15)
PROC: 0W993ZZ Drainage of Right Pleural Cavity, Percutaneous Approach (ICD-10-PCS; 2019-02-18)
PROC: 02HV33Z Insertion of Infusion Device into Superior Vena Cava, Percutaneous Approach (ICD-10-PCS; 2019-02-19)
PROC: B548ZZA Ultrasonography of Superior Vena Cava, Guidance (ICD-10-PCS; 2019-02-19)
PROC: 0B21XFZ Change Tracheostomy Device in Trachea, External Approach (ICD-10-PCS; 2019-02-20)
DX: J18.1 Lobar pneumonia, unspecified organism (principal); E87.3 Alkalosis; R18.8 Other ascites; E11.65 Type 2 diabetes mellitus with hyperglycemia; E83.51 Hypocalcemia; J39.8 Other specified diseases of upper respiratory tract; J96.01 Acute respiratory failure with hypoxia; K76.0 Fatty (change of) liver, not elsewhere classified; T17.990A Other foreign object in respiratory tract, part unspecified in causing asphyxiation, initial encounter; D64.9 Anemia, unspecified; J44.0 Chronic obstructive pulmonary disease with (acute) lower respiratory infection; J44.1 Chronic obstructive pulmonary disease with (acute) exacerbation; I10 Essential (primary) hypertension; K21.9 Gastro-esophageal reflux disease without esophagitis; F32.9 Major depressive disorder, single episode, unspecified; E87.6 Hypokalemia; F41.9 Anxiety disorder, unspecified; K80.20 Calculus of gallbladder without cholecystitis without obstruction; T38.0X5A Adverse effect of glucocorticoids and synthetic analogues, initial encounter; Y92.89 Other specified places as the place of occurrence of the external cause; Z99.11 Dependence on respirator [ventilator] status; Z93.0 Tracheostomy status; Z88.8 Allergy status to other drugs, medicaments and biological substances; Z91.048 Other nonmedicinal substance allergy status; Z79.899 Other long term (current) drug therapy; Z87.01 Personal history of pneumonia (recurrent)
CPT/HCPCS: 32555; 36415; 36569; 36600; 71045; 71260; 74177; 76937; 80048; 80202; 82375; 82805; 82962; 83036; 83540; 83550; 83605; 83615; 83735; 83880; 83986; 84132; 84145; 84484; 85014; 85018; 85027; 87070; 87804; 88108; 92610; 93005; 94002; 94003; 94640; 99285; A6261; C1725; J0610; J1644; J1815; J2060; J2543; J2920; J3370; J3490; J7030; J7050; J7060; J7611; J7626; Q9967

== ENCOUNTER 2019-02-23 21:46 | Inpatient (IN) | payer MEDICAID ==
[~2019-02-23] VITALS: Ht 162.6 cm; Wt 79.4 kg
[2019-02-23] MEDS ORDERED: VANCOMYCIN 1 G PREMIX 200 ML IV SCH (22:45)
[2019-02-23] MEDS ORDERED: SODIUM CHLORIDE 0.9% 1000ML BAG (SEPSIS BOLUS) IV ONE (22:45)
[2019-02-23] MEDS ORDERED: PIPERACILLIN/TAZ 3.375G PREMIX 50 ML IV ONE (22:45)
[2019-02-23 23:30] LABS: CHLORIDE 106 mEq/L (98-107)
[2019-02-23 23:32] LABS: HEMOGLOBIN. 9.8 g/dL (12.0-16.0); MEAN CORPUSCULAR HEMOGLOBIN 25.2 pg (28.0-32.0); MEAN CORPUSCULAR VOLUME 79.5 fL (81.0-99.0); MEAN PLATELET VOLUME 7.1 fl (7.4-10.4); PLATELET 592 x1000/uL (130-400); RED CELL DISTRIBUTION WIDTH 17.7 % (11.6-14.6)
[2019-02-23 23:36] LABS: INR 1.1; PARTIAL THROMBOPLASTIN TIME 22.1 sec (23.4-31.0); PROTHROMBIN TIME 11.2 sec (9.1-11.1)
[2019-02-24] VITALS (7 sets, daily range): BP systolic 108–131; BP diastolic 65–80
[2019-02-24] MEDS ORDERED: ASPIRIN 325MG EC TABLET PO ONE (00:15)
[2019-02-24 00:19] LABS: PLATELET ESTIMATE INCREASED
[2019-02-24] MEDS ORDERED: ASPIRIN 300MG SUPP PR ONE (01:00)
[2019-02-24] MEDS ORDERED: ONDANSETRON HCL 4MG/2ML INJ IV PRN (15:30)
[2019-02-24] MEDS ORDERED: CLONIDINE 0.1MG TABLET PO PRN (15:30)
[2019-02-24] MEDS ORDERED: HYDROCODONE/ACETAMINOPHEN 5/325MG TABLET PO PRN (15:30)
[2019-02-24 18:22] LABS: HEMATOCRIT. 28.2 % (36.0-48.0); MEAN CORPUSCULAR HEMOGLOBIN 25.3 pg (28.0-32.0); MEAN CORPUSCULAR VOLUME 79.3 fL (81.0-99.0); RED BLOOD CELL COUNT 3.56 mill/uL (4.2-5.4)
[2019-02-24 18:23] LABS: BASOPHILS % 0.8 % (0.0-2.0); EOSINOPHILS % 0.4 % (0.0-5.0); LYMPHOCYTES % 7.2 % (20.0-50.0); MEAN PLATELET VOLUME 7.1 fl (7.4-10.4); MONOCYTES % 5.7 % (2.0-8.0); NEUTROPHILS % 85.9 % (40.0-76.0); PLATELET 518 x1000/uL (130-400); RED CELL DISTRIBUTION WIDTH 17.4 % (11.6-14.6)
[2019-02-24 18:27] LABS: CHLORIDE 110 mEq/L (98-107)
[2019-02-24] MEDS: PIPERACILLIN/TAZ 3.375G PREMIX 50 ML IV SCH (18:32)
[2019-02-24] MEDS: ENOXAPARIN 40MG/0.4ML SYR SUBCUT SCH (18:32)
[2019-02-24 18:34] LABS: PHOSPHORUS 2.2 mg/dL (2.5-4.9)
[2019-02-24] MEDS ORDERED: VANCOMYCIN 2,000 MG in DEXT 5% WATER 500 ML IV NR (20:00)
[2019-02-24 23:55] LABS: CREATINE KINASE MB FRACTION 1.6 ng/mL (0.5-3.6)
[2019-02-25] VITALS (11 sets, daily range): BP systolic 105–155; BP diastolic 47–94
[2019-02-25] MEDS: PIPERACILLIN/TAZ 3.375G PREMIX 50 ML IV SCH ×4 (06:00→18:21)
[2019-02-25] MEDS: ACETAMINOPHEN 325MG TABLET PO PRN ×2 (09:30→13:59)
[2019-02-25 11:13] LABS: HEMATOCRIT. 31.8 % (36.0-48.0); HEMOGLOBIN. 10.1 g/dL (12.0-16.0); MEAN CORPUSCULAR HEMOGLOBIN 25.1 pg (28.0-32.0); MEAN CORPUSCULAR VOLUME 79.2 fL (81.0-99.0); MEAN PLATELET VOLUME 7.2 fl (7.4-10.4); PLATELET 551 x1000/uL (130-400); RED BLOOD CELL COUNT 4.02 mill/uL (4.2-5.4); RED CELL DISTRIBUTION WIDTH 17.5 % (11.6-14.6)
[2019-02-25 11:19] LABS: CHLORIDE 106 mEq/L (98-107)
[2019-02-25] MEDS: VANCOMYCIN 1 G PREMIX 200 ML IV SCH ×2 (11:29→21:24)
[2019-02-25 11:31] LABS: LDL CHOLESTEROL 91 mg/dL (5-100); T4 FREE 1.49 ng/dL (0.76-1.46)
[2019-02-25 11:33] LABS: CREATINE KINASE MB FRACTION 1.2 ng/mL (0.5-3.6)
[2019-02-25 11:34] LABS: CREATINE KINASE 25 IU/L (26-192)
[2019-02-25 11:35] LABS: HDL CHOLESTEROL 55 mg/dL (40-59)
[2019-02-25] MEDS ORDERED: POTASSIUM CHLORIDE 20MEQ TABLET SR PO NR ×2 (12:00→19:30)
[2019-02-25 12:06] LABS: PLATELET ESTIMATE INCREASED
[2019-02-25] MEDS ORDERED: POTASSIUM CHLORIDE INJ 40 MEQ in DEXT 5% WATER 250 ML IV NR (14:00)
[2019-02-25] MEDS: ENOXAPARIN 40MG/0.4ML SYR SUBCUT SCH (16:00)
[2019-02-25] MEDS: IPRATROPIUM/ALBUTEROL 0.5-3(2.5)MG/3ML NEB INH PRN (20:10)
[2019-02-25] MEDS: BUDESONIDE 0.5MG/2ML NEB HHN SCH (20:10)
[2019-02-26] VITALS (12 sets, daily range): BP systolic 95–149; BP diastolic 46–71
[2019-02-26] MEDS: PIPERACILLIN/TAZ 3.375G PREMIX 50 ML IV SCH ×4 (01:37→17:51)
[2019-02-26 06:28] LABS: HEMATOCRIT 26.9 % (36.0-48.0); HEMOGLOBIN 8.6 g/dL (12.0-16.0); MEAN CORPUSCULAR HEMOGLOBIN 25.4 pg (28.0-32.0); MEAN CORPUSCULAR VOLUME 79.5 fL (81.0-99.0); PLATELET 484 x1000/uL (130-400); RED BLOOD CELL COUNT 3.39 mill/uL (4.2-5.4); RED CELL DISTRIBUTION WIDTH 17.9 % (11.6-14.6)
[2019-02-26 08:05] LABS: CHLORIDE 104 mEq/L (98-107)
[2019-02-26] MEDS: VANCOMYCIN 1 G PREMIX 200 ML IV SCH (08:27)
[2019-02-26 09:17] LABS: BG BASE EXCESS 0.7 mmol/L (-2.0-2.0); BG CARBOXYHEMOGLOBIN 0.3 % (0.5-1.5); BG DEOXYHEMOGLOBIN 1.4 % (0.0-5.0); BG FRACTION INSPIRED OXYGEN 40; BG HCO3 ACT 22.7 mmol/L (22.0-26.0); BG METHEMOGLOBIN 0.2 % (0.0-1.5); BG OXYGEN SATURATION 98.6 % (92.0-98.5); BG OXYHEMOGLOBIN 98.1 % (94.0-97.0); BG PCO2 27.7 mmHg (35.0-45.0); BG PH 7.532 (7.350-7.450); BG PO2 134.8 mmHg (75.0-100.0); BG SAMPLE SITE RIGHT RADIAL; BG TIDAL VOLUME(mL) 450 mL; BG TOTAL HEMOGLOBIN 9.8 g/dL (12.0-18.0); BG VENT MODE VENT - A/C; BG VENT RATE 12 set
[2019-02-26] MEDS: ENOXAPARIN 40MG/0.4ML SYR SUBCUT SCH (16:00)
[2019-02-26] MEDS: IPRATROPIUM/ALBUTEROL 0.5-3(2.5)MG/3ML NEB INH PRN (20:08)
[2019-02-26] MEDS: BUDESONIDE 0.5MG/2ML NEB HHN SCH (20:09)
[2019-02-27] VITALS (12 sets, daily range): BP systolic 90–132; BP diastolic 55–77
[2019-02-27] MEDS: PIPERACILLIN/TAZ 3.375G PREMIX 50 ML IV SCH ×4 (00:48→18:40)
[2019-02-27 06:57] LABS: HEMOGLOBIN 8.6 g/dL (12.0-16.0); MEAN CORPUSCULAR HEMOGLOBIN 25.6 pg (28.0-32.0); MEAN CORPUSCULAR VOLUME 80.6 fL (81.0-99.0); PLATELET 488 x1000/uL (130-400); RED BLOOD CELL COUNT 3.35 mill/uL (4.2-5.4); RED CELL DISTRIBUTION WIDTH 17.8 % (11.6-14.6)
[2019-02-27 07:16] LABS: CHLORIDE 104 mEq/L (98-107)
[2019-02-27] MEDS: IPRATROPIUM/ALBUTEROL 0.5-3(2.5)MG/3ML NEB INH PRN (13:17)
[2019-02-27] MEDS: BUDESONIDE 0.5MG/2ML NEB HHN SCH (13:17)
[2019-02-27] MEDS: ENOXAPARIN 40MG/0.4ML SYR SUBCUT SCH (16:00)
[2019-02-27] MEDS: ACETAMINOPHEN 325MG TABLET PO PRN (20:30)
[2019-02-27] MEDS ORDERED: MICONAZOLE NITRATE 2% OINT 71GM TOP SCH (21:00)
== END 2019-02-27 23:52 | DRG 139 ==
LOC: ER 21:46 → 5EST 02-24 00:09 → EDBEDREQ 02-24 00:11 → EDBEDREQTM 02-24 00:11 → EDBEDREQDT 02-24 00:11 → ENRESERV 02-24 10:23 → 5EST 02-25 06:14
PROVIDERS: ADMIT Internal Medicine; ATTEND Internal Medicine
PROC: 5A1945Z Respiratory Ventilation, 24-96 Consecutive Hours (ICD-10-PCS; principal; 2019-02-24)
DX: J18.1 Lobar pneumonia, unspecified organism (principal); Z99.11 Dependence on respirator [ventilator] status; J96.10 Chronic respiratory failure, unspecified whether with hypoxia or hypercapnia; J44.0 Chronic obstructive pulmonary disease with (acute) lower respiratory infection; E11.9 Type 2 diabetes mellitus without complications; D64.9 Anemia, unspecified; E87.6 Hypokalemia; F41.9 Anxiety disorder, unspecified; Z93.0 Tracheostomy status; K76.0 Fatty (change of) liver, not elsewhere classified; I10 Essential (primary) hypertension; J44.1 Chronic obstructive pulmonary disease with (acute) exacerbation; K80.20 Calculus of gallbladder without cholecystitis without obstruction; K21.9 Gastro-esophageal reflux disease without esophagitis; Z88.9 Allergy status to unspecified drugs, medicaments and biological substances; R80.9 Proteinuria, unspecified
CPT/HCPCS: 36415; 36600; 71045; 80048; 80061; 80202; 82375; 82550; 82553; 82805; 82962; 83605; 83735; 84100; 84132; 84145; 84439; 84443; 84484; 85027; 87070; 87077; 87186; 87804; 93005; 94003; 94640; 96374; 96375; 99285; A6261; J1650; J2405; J2543; J3370; J3480; J7030; J7050; J7060; J7620; J7626

== ENCOUNTER 2020-02-03 11:13 | Inpatient (IN) | payer MEDICAID ==
[~2020-02-03] VITALS: Ht 177.8 cm; Wt 78.5 kg
[~2020-02-03 11:13] MED LIST changes: -ACET-2178 PO; -ACET325C5 GT; +ACET325C7 GT; +TOPUD PO
[2020-02-03] MEDS ORDERED: PIPERACILLIN/TAZ 3.375G PREMIX 50 ML IV ONE (11:45)
[2020-02-03] MEDS ORDERED: SODIUM CHLORIDE 0.9% 1000ML BAG (SEPSIS BOLUS) IV ONE (11:45)
[2020-02-03] MEDS ORDERED: VANCOMYCIN 1 G PREMIX 200 ML IV ONE (11:45)
[2020-02-03 11:57] LABS: HEMATOCRIT. 31.2 % (36.0-48.0); MEAN CORPUSCULAR HEMOGLOBIN 24.7 pg (28.0-32.0); MEAN CORPUSCULAR VOLUME 77.2 fL (81.0-99.0); PLATELET 440 x1000/uL (130-400); RED BLOOD CELL COUNT 4.05 mill/uL (4.2-5.4); RED CELL DISTRIBUTION WIDTH 18.8 % (11.6-14.6)
[2020-02-03 12:05] LABS: CHLORIDE 104 mEq/L (98-107)
[2020-02-03 12:15] LABS: CLARITY URINE TURBID (CLEAR); COLOR URINE YELLOW (YELLOW); KETONES URINE NEGATIVE (NEGATIVE); LEUKOCYTE ESTERASE URINE 3+ (NEGATIVE); NITRITE URINE NEGATIVE (NEGATIVE); OCCULT BLOOD URINE 3+ (NEGATIVE); PROTEIN URINE 1+ (NEGATIVE); SPECIFIC GRAVITY URINE 1.012 (1.005-1.030); UROBILINOGEN URINE 0.2 E.U./dL (0.2-1.0)
[2020-02-03 12:16] LABS: PROTHROMBIN TIME 10.7 sec (9.6-11.0)
[2020-02-03 12:25] LABS: PLATELET ESTIMATE INCREASED
[2020-02-03] MEDS ORDERED: CEFTRIAXONE 1 G PREMIX 50 ML IV SCH (16:30)
[2020-02-03] MEDS ORDERED: IPRATROPIUM/ALBUTEROL 0.5-3(2.5)MG/3ML NEB HHN SCH (18:00)
[2020-02-03] MEDS ORDERED: CLONIDINE 0.1MG TABLET PO PRN (20:30)
[2020-02-03] MEDS ORDERED: ACETAMINOPHEN 325MG TABLET PO PRN (20:30)
[2020-02-03] MEDS ORDERED: ACETAMINOPHEN 650MG SUPP PR PRN ×2 (20:30)
[2020-02-03] MEDS ORDERED: IPRATROPIUM/ALBUTEROL 0.5-3(2.5)MG/3ML NEB HHN PRN (20:30)
[2020-02-03] MEDS ORDERED: DIPHENHYDRAMINE 50MG/ML VIAL IV PRN (20:30)
[2020-02-03] MEDS ORDERED: NA PHOS,M-B/NA PHOS,DI-BA ENEMA 118ML PR PRN (20:30)
[2020-02-03] MEDS ORDERED: ACETAMINOPHEN 650MG/20.3ML UDC GT PRN ×2 (20:30)
[2020-02-03] MEDS ORDERED: MAGNESIUM/ALUMINUM HYDROXIDE/SIMETHICONE 30ML UDC PO PRN (20:30)
[2020-02-03] MEDS ORDERED: ONDANSETRON HCL 4MG/2ML INJ IV PRN (20:30)
[2020-02-03] MEDS ORDERED: DOCUSATE SODIUM 100MG CAPSULE PO PRN (20:30)
[2020-02-03] MEDS ORDERED: GUAIFENESIN 200MG/10ML SUGAR FREE UDC PO PRN (20:30)
[2020-02-03 21:56] LABS: BG BASE EXCESS -11.4 mmol/L (-2.0-2.0); BG CARBOXYHEMOGLOBIN 0.3 % (0.5-1.5); BG DEOXYHEMOGLOBIN 0.8 % (0.0-5.0); BG FRACTION INSPIRED OXYGEN 40; BG HCO3 ACT 15.4 mmol/L (22.0-26.0); BG METHEMOGLOBIN 0.1 % (0.0-1.5); BG OXYGEN SATURATION 99.2 % (92.0-98.5); BG OXYHEMOGLOBIN 98.8 % (94.0-97.0); BG PCO2 38.3 mmHg (35.0-45.0); BG PH 7.223 (7.350-7.450); BG PO2 166.8 mmHg (75.0-100.0); BG SAMPLE SITE RIGHT RADIAL; BG TOTAL HEMOGLOBIN 10.1 g/dL (12.0-18.0); BG VENT MODE VENT - CPAP
[2020-02-03] MEDS ORDERED: LEVOFLOXACIN 500MG PREMIX 100 ML IV NR (22:00)
[2020-02-03 22:51] LABS: HEMATOCRIT. 30.2 % (36.0-48.0); HEMOGLOBIN. 9.5 g/dL (12.0-16.0); MEAN CORPUSCULAR HEMOGLOBIN 24.2 pg (28.0-32.0); MEAN CORPUSCULAR VOLUME 77.3 fL (81.0-99.0); MEAN PLATELET VOLUME 7.2 fl (7.4-10.4); PLATELET 467 x1000/uL (130-400); RED BLOOD CELL COUNT 3.91 mill/uL (4.2-5.4)
[2020-02-03 22:57] LABS: PLATELET ESTIMATE SLIGHTLY INCREASED
[2020-02-03 23:05] LABS: CREATINE KINASE 47 IU/L (26-192)
[2020-02-03 23:07] LABS: CREATINE KINASE MB FRACTION 4.2 ng/mL (0.5-3.6)
[2020-02-04] VITALS (15 sets, daily range): BP systolic 120–143; BP diastolic 30–89
[2020-02-04] MEDS ORDERED: SODIUM BICARBONATE 8.4% 1 MEQ/ML 50ML SYR IV NR (01:00)
[2020-02-04] MEDS: IPRATROPIUM/ALBUTEROL 0.5-3(2.5)MG/3ML NEB HHN SCH ×4 (02:10→20:27)
[2020-02-04] MEDS: SODIUM CHLORIDE 0.45% 1,000 ML IV SCH ×2 (03:00→17:27)
[2020-02-04 07:12] LABS: CHLORIDE 119 mEq/L (98-107)
[2020-02-04 07:15] LABS: HEMATOCRIT. 24.2 % (36.0-48.0); HEMOGLOBIN. 7.7 g/dL (12.0-16.0); MEAN CORPUSCULAR HEMOGLOBIN 24.4 pg (28.0-32.0); MEAN CORPUSCULAR VOLUME 77.1 fL (81.0-99.0); MEAN PLATELET VOLUME 7.2 fl (7.4-10.4); PLATELET 375 x1000/uL (130-400); RED BLOOD CELL COUNT 3.14 mill/uL (4.2-5.4); RED CELL DISTRIBUTION WIDTH 18.6 % (11.6-14.6)
[2020-02-04 07:17] LABS: HDL CHOLESTEROL 52 mg/dL (40-59); LDL CHOLESTEROL 58 mg/dL (5-100)
[2020-02-04 07:21] LABS: CREATINE KINASE 37 IU/L (26-192); CREATINE KINASE MB FRACTION 2.9 ng/mL (0.5-3.6)
[2020-02-04] MEDS: CEFTRIAXONE 1 G PREMIX 50 ML IV SCH (08:19)
[2020-02-04] MEDS: ENOXAPARIN 40MG/0.4ML SYR SUBCUT SCH ×2 (08:20→08:24)
[2020-02-04] MEDS: ACETAMINOPHEN 325MG TABLET PO PRN (17:30)
[2020-02-04] MEDS ORDERED: LEVOFLOXACIN 250MG PREMIX 50 ML IV SCH (21:00)
[2020-02-04] MEDS ORDERED: LEVOFLOXACIN 500MG PREMIX 100 ML IV SCH (21:00)
[2020-02-04] MEDS: LEVOFLOXACIN 500MG PREMIX 100 ML IV SCH (21:25)
[2020-02-04 21:27] LABS: PLATELET ESTIMATE NORMAL
[2020-02-05] VITALS (11 sets, daily range): BP systolic 135–163; BP diastolic 53–94
[2020-02-05] MEDS: ACETAMINOPHEN 325MG TABLET PO PRN ×2 (01:38→08:42)
[2020-02-05] MEDS: IPRATROPIUM/ALBUTEROL 0.5-3(2.5)MG/3ML NEB HHN SCH ×4 (02:10→20:20)
[2020-02-05] MEDS: SODIUM CHLORIDE 0.45% 1,000 ML IV SCH ×2 (04:16→21:49)
[2020-02-05] MEDS: SODIUM CHLORIDE 0.9% INJ 3ML FLUSH IVF SCH ×3 (05:17→21:50)
[2020-02-05 05:25] LABS: HEMATOCRIT. 26.3 % (36.0-48.0); HEMOGLOBIN. 8.2 g/dL (12.0-16.0); MEAN CORPUSCULAR HEMOGLOBIN 24.3 pg (28.0-32.0); MEAN CORPUSCULAR VOLUME 77.9 fL (81.0-99.0); MEAN PLATELET VOLUME 7.2 fl (7.4-10.4); PLATELET 392 x1000/uL (130-400); RED BLOOD CELL COUNT 3.37 mill/uL (4.2-5.4); RED CELL DISTRIBUTION WIDTH 19.2 % (11.6-14.6)
[2020-02-05] MEDS ORDERED: TRAMADOL 50MG TABLET PO PRN (08:15)
[2020-02-05] MEDS: CEFTRIAXONE 1 G PREMIX 50 ML IV SCH (08:45)
[2020-02-05] MEDS: ENOXAPARIN 40MG/0.4ML SYR SUBCUT SCH (08:45)
[2020-02-05 11:09] LABS: HEMATOCRIT. 24.7 % (36.0-48.0); HEMOGLOBIN. 7.8 g/dL (12.0-16.0); MEAN CORPUSCULAR HEMOGLOBIN 24.3 pg (28.0-32.0); MEAN CORPUSCULAR VOLUME 76.6 fL (81.0-99.0); MEAN PLATELET VOLUME 7.2 fl (7.4-10.4); PLATELET 402 x1000/uL (130-400); RED BLOOD CELL COUNT 3.22 mill/uL (4.2-5.4); RED CELL DISTRIBUTION WIDTH 19.4 % (11.6-14.6)
[2020-02-05 11:29] LABS: CHLORIDE 107 mEq/L (98-107)
[2020-02-05 12:51] LABS: PLATELET ESTIMATE SLIGHTLY INCREASED
[2020-02-05 13:40] LABS: PLATELET ESTIMATE NORMAL
[2020-02-05] MEDS: LEVOFLOXACIN 500MG PREMIX 100 ML IV SCH (21:45)
[2020-02-06] VITALS (11 sets, daily range): BP systolic 113–149; BP diastolic 57–78
[2020-02-06] MEDS: IPRATROPIUM/ALBUTEROL 0.5-3(2.5)MG/3ML NEB HHN SCH ×3 (01:52→20:13)
[2020-02-06] MEDS: SODIUM CHLORIDE 0.9% INJ 3ML FLUSH IVF SCH ×3 (05:10→22:03)
[2020-02-06] MEDS: SODIUM CHLORIDE 0.45% 1,000 ML IV SCH ×2 (06:50→19:25)
[2020-02-06] MEDS: IPRATROPIUM/ALBUTEROL 0.5-3(2.5)MG/3ML NEB HHN PRN ×2 (07:44→16:52)
[2020-02-06] MEDS: CEFTRIAXONE 1 G PREMIX 50 ML IV SCH (08:00)
[2020-02-06] MEDS: ENOXAPARIN 40MG/0.4ML SYR SUBCUT SCH (09:00)
[2020-02-06] MEDS ORDERED: ACETYLCYSTEINE 100MG/ML 10% VIAL 4ML INH SCH (15:30)
[2020-02-06] MEDS ORDERED: FLUC100T MT (19:18)
[2020-02-06] MEDS ORDERED: LEVO500T2 MT (19:18)
[2020-02-06] MEDS: FLUCONAZOLE 100MG TABLET PO SCH (19:31)
[2020-02-07] VITALS (10 sets, daily range): BP systolic 114–158; BP diastolic 52–92
[2020-02-07] MEDS: IPRATROPIUM/ALBUTEROL 0.5-3(2.5)MG/3ML NEB HHN SCH ×3 (01:30→13:48)
[2020-02-07] MEDS: SODIUM CHLORIDE 0.9% INJ 3ML FLUSH IVF SCH (06:02)
[2020-02-07] MEDS: ENOXAPARIN 40MG/0.4ML SYR SUBCUT SCH (09:00)
[2020-02-07] MEDS: SODIUM CHLORIDE 0.45% 1,000 ML IV SCH (09:09)
[2020-02-07] MEDS: FLUCONAZOLE 100MG TABLET PO SCH (09:09)
[2020-02-07] MEDS: CEFTRIAXONE 1 G PREMIX 50 ML IV SCH (09:15)
== END 2020-02-07 16:20 | DRG 720 ==
LOC: ER 11:13 → ENRESERV 22:31 → 5EST 23:56
PROVIDERS: ADMIT Family Medicine; ATTEND Family Medicine
PROC: 5A1955Z Respiratory Ventilation, Greater than 96 Consecutive Hours (ICD-10-PCS; principal; 2020-02-03)
DX: A41.51 Sepsis due to Escherichia coli [E. coli] (principal); N17.0 Acute kidney failure with tubular necrosis; J96.20 Acute and chronic respiratory failure, unspecified whether with hypoxia or hypercapnia; Z99.11 Dependence on respirator [ventilator] status; J39.8 Other specified diseases of upper respiratory tract; D64.9 Anemia, unspecified; E11.9 Type 2 diabetes mellitus without complications; N17.9 Acute kidney failure, unspecified; M41.9 Scoliosis, unspecified; F32.9 Major depressive disorder, single episode, unspecified; F41.9 Anxiety disorder, unspecified; K21.9 Gastro-esophageal reflux disease without esophagitis; J44.9 Chronic obstructive pulmonary disease, unspecified; I10 Essential (primary) hypertension; M62.50 Muscle wasting and atrophy, not elsewhere classified, unspecified site; M19.90 Unspecified osteoarthritis, unspecified site; N39.0 Urinary tract infection, site not specified; Z87.01 Personal history of pneumonia (recurrent); Z93.0 Tracheostomy status; Z88.8 Allergy status to other drugs, medicaments and biological substances; Z79.899 Other long term (current) drug therapy; Z74.01 Bed confinement status
CPT/HCPCS: 36415; 36600; 71045; 76770; 80053; 80061; 81003; 82375; 82550; 82553; 82805; 83605; 83880; 84145; 84484; 85025; 87070; 87077; 87106; 87186; 87804; 92610; 93005; 94002; 94003; 94640; 96365; 99291; J0696; J1200; J1650; J1956; J2543; J3370; J3490; J7030; J7608

== ENCOUNTER 2020-04-27 09:13 | Inpatient (IN) | payer MEDICAID ==
[~2020-04-27] VITALS: Ht 165.1 cm; Wt 84.4 kg
[2020-04-27] MEDS: BLOOD SUGAR DIAGNOSTIC STRIP TEST SCH ×2 (08:00→16:28)
[~2020-04-27 09:13] MED LIST changes: +FLUC100T MT; +LEVO500T2 MT
[2020-04-27 11:00] LABS: BASOPHILS % 0.1 % (0.0-2.0); HEMOGLOBIN. 7.9 g/dL (12.0-16.0); LYMPHOCYTES % 8.1 % (20.0-50.0); MEAN CORPUSCULAR HEMOGLOBIN 25.5 pg (28.0-32.0); MEAN CORPUSCULAR VOLUME 80.6 fL (81.0-99.0); MEAN PLATELET VOLUME 8.3 fl (7.4-10.4); MONOCYTES % 7.3 % (2.0-8.0); NEUTROPHILS % 83.5 % (40.0-76.0); PLATELET 368 x1000/uL (130-400); RED CELL DISTRIBUTION WIDTH 17.8 % (11.6-14.6)
[2020-04-27 11:07] LABS: PROTHROMBIN TIME 10.7 sec (9.6-11.0)
[2020-04-27 11:08] LABS: CHLORIDE 97 mEq/L (98-107)
[2020-04-27] MEDS ORDERED: SODIUM CHLORIDE 0.9% 500 ML IV ONE (13:00)
[2020-04-27 14:02] LABS: CLARITY URINE TURBID (CLEAR); KETONES URINE NEGATIVE (NEGATIVE); LEUKOCYTE ESTERASE URINE 3+ (NEGATIVE); NITRITE URINE POSITIVE (NEGATIVE); OCCULT BLOOD URINE 2+ (NEGATIVE); PH URINE 6.5 (4.5-8.0); PROTEIN URINE 1+ (NEGATIVE); SPECIFIC GRAVITY URINE 1.014 (1.005-1.030); UROBILINOGEN URINE 0.2 E.U./dL (0.2-1.0)
[2020-04-27 14:05] LABS: COLOR URINE PALE YELLOW (YELLOW)
[2020-04-27] MEDS ORDERED: PIPERACILLIN/TAZ 3.375G PREMIX 50 ML IV SCH (14:45)
[2020-04-27] MEDS ORDERED: ONDANSETRON HCL 4MG/2ML INJ IV PRN (14:45)
[2020-04-27] MEDS ORDERED: SODIUM POLYSTYRENE SULFONATE 15 G/60 ML BOT PO NR (14:45)
[2020-04-27] MEDS ORDERED: LORAZEPAM 0.5MG TABLET PO PRN (14:45)
[2020-04-27] MEDS: SODIUM CHLORIDE 0.9% 1,000 ML IV SCH (14:54)
[2020-04-27] MEDS ORDERED: DEXTROSE 50% WATER 50ML SYRINGE IV PRN (15:30)
[2020-04-27] MEDS ORDERED: VANCOMYCIN 1 G PREMIX 200 ML IV SCH (16:00)
[2020-04-27] MEDS: PIPERACILLIN/TAZOBACTAM 2.25 G in DEXTROSE 5% WATER 50 ML IV SCH (16:13)
[2020-04-27] MEDS: INSULIN LISPRO 100 UNITS/ML SUBCUT SCH (16:28)
[2020-04-27] MEDS: METOCLOPRAMIDE HCL 10MG/2ML VIAL IV SCH (16:28)
[2020-04-28] MEDS: IPRATROPIUM/ALBUTEROL 0.5-3(2.5)MG/3ML NEB NEB PRN ×2 (02:30→05:55)
[2020-04-28 05:48] LABS: HEMATOCRIT. 26.1 % (36.0-48.0); HEMOGLOBIN. 8.1 g/dL (12.0-16.0); MEAN CORPUSCULAR HEMOGLOBIN 24.7 pg (28.0-32.0); MEAN CORPUSCULAR VOLUME 79.5 fL (81.0-99.0); MEAN PLATELET VOLUME 7.9 fl (7.4-10.4); PLATELET 395 x1000/uL (130-400); RED BLOOD CELL COUNT 3.28 mill/uL (4.2-5.4); RED CELL DISTRIBUTION WIDTH 17.6 % (11.6-14.6)
[2020-04-28] MEDS: BLOOD SUGAR DIAGNOSTIC STRIP TEST SCH ×5 (08:00→20:58)
[2020-04-28] MEDS: PIPERACILLIN/TAZOBACTAM 2.25 G in DEXTROSE 5% WATER 50 ML IV SCH ×4 (08:00→23:12)
[2020-04-28] MEDS: INSULIN LISPRO 100 UNITS/ML SUBCUT SCH ×4 (08:00→21:00)
[2020-04-28] MEDS: METOCLOPRAMIDE HCL 10MG/2ML VIAL IV SCH ×4 (08:28→23:11)
[2020-04-28] MEDS: ASCORBIC ACID 500 MG TABLET PO SCH (09:00)
[2020-04-28] MEDS: ZINC SULFATE 220 MG ( 50 ) CAPSULE PO SCH (09:00)
[2020-04-28 09:07] LABS: PLATELET ESTIMATE NORMAL
[2020-04-28] MEDS ORDERED: FLUCONAZOLE 100MG TABLET PO SCH (09:30)
[2020-04-28] MEDS ORDERED: SODIUM POLYSTYRENE SULFONATE 15 G/60 ML BOT PO SCH (09:30)
[2020-04-28] MEDS: PANTOPRAZOLE SODIUM 40 MG/VIAL IV SCH (09:56)
[2020-04-28 12:00] VITALS: BP 93/50
[2020-04-28 14:00] VITALS: BP 100/52
[2020-04-28] MEDS: SODIUM CHLORIDE 0.9% 1,000 ML IV SCH ×2 (15:47→15:53)
[2020-04-28] MEDS: HYDROCODONE/ACETAMINOPHEN 5/325MG TABLET PO PRN (15:48)
[2020-04-28] MEDS: FLUCONAZOLE 100MG TABLET PO SCH (15:49)
[2020-04-28] MEDS: VANCOMYCIN 750 MG PREMIX 150 ML IV SCH (15:53)
[2020-04-28 16:00] VITALS: BP 96/43
[2020-04-28 18:00] VITALS: BP 96/57
[2020-04-28 20:00] VITALS: BP 106/44
[2020-04-28 22:00] VITALS: BP 95/48
[2020-04-29] VITALS (11 sets, daily range): BP systolic 80–109; BP diastolic 35–57
[2020-04-29] MEDS: SODIUM CHLORIDE 0.9% 1,000 ML IV SCH ×3 (04:04→17:19)
[2020-04-29 06:15] LABS: CHLORIDE 105 mEq/L (98-107)
[2020-04-29 06:22] LABS: PHOSPHORUS 7.4 mg/dL (2.5-4.9)
[2020-04-29 06:30] LABS: HEMATOCRIT. 24.6 % (36.0-48.0); HEMOGLOBIN. 7.6 g/dL (12.0-16.0); MEAN CORPUSCULAR HEMOGLOBIN 24.7 pg (28.0-32.0); MEAN PLATELET VOLUME 7.8 fl (7.4-10.4); PLATELET 389 x1000/uL (130-400); RED BLOOD CELL COUNT 3.08 mill/uL (4.2-5.4); RED CELL DISTRIBUTION WIDTH 17.6 % (11.6-14.6)
[2020-04-29] MEDS: METOCLOPRAMIDE HCL 10MG/2ML VIAL IV SCH ×3 (07:01→18:35)
[2020-04-29] MEDS: BLOOD SUGAR DIAGNOSTIC STRIP TEST SCH ×4 (07:45→20:53)
[2020-04-29] MEDS: INSULIN LISPRO 100 UNITS/ML SUBCUT SCH ×4 (07:46→21:15)
[2020-04-29] MEDS: PANTOPRAZOLE SODIUM 40 MG/VIAL IV SCH (08:01)
[2020-04-29] MEDS: PIPERACILLIN/TAZOBACTAM 2.25 G in DEXTROSE 5% WATER 50 ML IV SCH ×2 (08:11→16:29)
[2020-04-29] MEDS: ACETAMINOPHEN 325MG TABLET PO PRN (08:48)
[2020-04-29] MEDS: ASCORBIC ACID 500 MG TABLET PO SCH (09:00)
[2020-04-29] MEDS: ZINC SULFATE 220 MG ( 50 ) CAPSULE PO SCH (09:00)
[2020-04-29] MEDS: FLUCONAZOLE 100MG TABLET PO SCH (09:00)
[2020-04-29] MEDS: IRON SUCROSE COMPLEX 100 MG/5 ML ML IV SCH (11:22)
[2020-04-29] MEDS: CALCIUM ACETATE 667MG CAPSULE PO SCH ×2 (12:36→18:35)
[2020-04-29] MEDS: MIDODRINE HCL 5MG TABLET PO SCH ×2 (12:41→17:18)
[2020-04-29] MEDS ORDERED: SODIUM CHLORIDE 0.9% 500 ML IV NR (13:15)
[2020-04-29 14:12] LABS: PLATELET ESTIMATE NORMAL
[2020-04-29] MEDS: VANCOMYCIN 750 MG PREMIX 150 ML IV SCH (17:13)
[2020-04-30] VITALS (23 sets, daily range): BP systolic 82–153; BP diastolic 41–90
[2020-04-30] MEDS: METOCLOPRAMIDE HCL 10MG/2ML VIAL IV SCH ×4 (00:09→17:42)
[2020-04-30] MEDS: PIPERACILLIN/TAZOBACTAM 2.25 G in DEXTROSE 5% WATER 50 ML IV SCH ×2 (00:09→07:42)
[2020-04-30 05:41] LABS: CHLORIDE 110 mEq/L (98-107)
[2020-04-30] MEDS: SODIUM CHLORIDE 0.9% 1,000 ML IV SCH (05:52)
[2020-04-30 06:29] LABS: MEAN CORPUSCULAR HEMOGLOBIN 24.9 pg (28.0-32.0); MEAN CORPUSCULAR VOLUME 80.7 fL (81.0-99.0); MEAN PLATELET VOLUME 7.9 fl (7.4-10.4); PLATELET 288 x1000/uL (130-400); RED BLOOD CELL COUNT 2.16 mill/uL (4.2-5.4); RED CELL DISTRIBUTION WIDTH 18.2 % (11.6-14.6)
[2020-04-30 07:03] LABS: HEMOGLOBIN. 5.4 g/dL (12.0-16.0)
[2020-04-30 07:04] LABS: HEMATOCRIT. 17.5 % (36.0-48.0)
[2020-04-30] MEDS: BLOOD SUGAR DIAGNOSTIC STRIP TEST SCH ×4 (07:34→21:11)
[2020-04-30] MEDS: INSULIN LISPRO 100 UNITS/ML SUBCUT SCH ×4 (07:36→21:11)
[2020-04-30] MEDS: CALCIUM ACETATE 667MG CAPSULE PO SCH ×3 (07:42→17:42)
[2020-04-30] MEDS: ASCORBIC ACID 500 MG TABLET PO SCH (08:34)
[2020-04-30] MEDS: ZINC SULFATE 220 MG ( 50 ) CAPSULE PO SCH (08:34)
[2020-04-30] MEDS: FLUCONAZOLE 100MG TABLET PO SCH (08:34)
[2020-04-30] MEDS: MIDODRINE HCL 5MG TABLET PO SCH ×2 (08:34→17:14)
[2020-04-30] MEDS: PANTOPRAZOLE SODIUM 40 MG/VIAL IV SCH (08:35)
[2020-04-30] MEDS: IRON SUCROSE COMPLEX 100 MG/5 ML ML IV SCH (10:11)
[2020-04-30 13:08] LABS: HEMATOCRIT 22.1 % (36.0-48.0)
[2020-04-30 13:14] LABS: HEMOGLOBIN 6.8 g/dL (12.0-16.0)
[2020-04-30] MEDS ORDERED: GENTAMICIN SULFATE 60 MG in SODIUM CHLORIDE 0.9% 50 ML IV NR (14:00)
[2020-04-30 14:01] LABS: PLATELET ESTIMATE NORMAL
[2020-04-30 14:07] LABS: BG BASE EXCESS -7.1 mmol/L (-2.0-2.0); BG CARBOXYHEMOGLOBIN 0.7 % (0.5-1.5); BG DEOXYHEMOGLOBIN 1.8 % (0.0-5.0); BG FRACTION INSPIRED OXYGEN 35; BG HCO3 ACT 19.2 mmol/L (22.0-26.0); BG METHEMOGLOBIN 0.9 % (0.0-1.5); BG OXYGEN SATURATION 98.2 % (92.0-98.5); BG OXYHEMOGLOBIN 96.6 % (94.0-97.0); BG PCO2 42.5 mmHg (35.0-45.0); BG PH 7.272 (7.350-7.450); BG PO2 123.3 mmHg (75.0-100.0); BG PRESSURE SUPPORT 8; BG SAMPLE SITE RIGHT RADIAL; BG TIDAL VOLUME(mL) 500 mL; BG TOTAL HEMOGLOBIN 7.1 g/dL (12.0-18.0); BG VENT MODE VENT - SIMV; BG VENT RATE 10 set
[2020-04-30] MEDS: NITROFURANTOIN 100MG M/M CAPSULE PO SCH (14:24)
[2020-04-30] MEDS ORDERED: CALCIUM GLUCONATE 1,000 MG in DEXT 5% WATER 90 ML IV NR (15:30)
[2020-04-30] MEDS: SODIUM BICARBONATE 50 MEQ in SODIUM CHLORIDE 0.45% 1,000 ML IV SCH (16:20)
[2020-05-01] VITALS (13 sets, daily range): BP systolic 100–172; BP diastolic 49–107
[2020-05-01] MEDS: METOCLOPRAMIDE HCL 10MG/2ML VIAL IV SCH ×4 (00:34→17:33)
[2020-05-01] MEDS: ACETAMINOPHEN 325MG TABLET PO PRN (00:45)
[2020-05-01] MEDS: BLOOD SUGAR DIAGNOSTIC STRIP TEST SCH ×4 (07:30→21:31)
[2020-05-01] MEDS: INSULIN LISPRO 100 UNITS/ML SUBCUT SCH ×4 (08:00→21:00)
[2020-05-01 10:16] LABS: HEMATOCRIT. 29.9 % (36.0-48.0); HEMOGLOBIN. 9.9 g/dL (12.0-16.0); MEAN CORPUSCULAR HEMOGLOBIN 27.5 pg (28.0-32.0); MEAN CORPUSCULAR VOLUME 83.1 fL (81.0-99.0); MEAN PLATELET VOLUME 7.7 fl (7.4-10.4); PLATELET 320 x1000/uL (130-400); RED CELL DISTRIBUTION WIDTH 18.2 % (11.6-14.6)
[2020-05-01 10:56] LABS: PHOSPHORUS 4.4 mg/dL (2.5-4.9)
[2020-05-01] MEDS: CALCIUM ACETATE 667MG CAPSULE PO SCH ×3 (10:59→17:52)
[2020-05-01] MEDS: ZINC SULFATE 220 MG ( 50 ) CAPSULE PO SCH (10:59)
[2020-05-01] MEDS: PANTOPRAZOLE SODIUM 40 MG/VIAL IV SCH (11:00)
[2020-05-01] MEDS: FLUCONAZOLE 100MG TABLET PO SCH (11:00)
[2020-05-01] MEDS: MIDODRINE HCL 5MG TABLET PO SCH ×3 (11:00→17:33)
[2020-05-01] MEDS: ASCORBIC ACID 500 MG TABLET PO SCH ×2 (11:00→20:03)
[2020-05-01] MEDS: IRON SUCROSE COMPLEX 100 MG/5 ML ML IV SCH (11:01)
[2020-05-01] MEDS: HYDROCODONE/ACETAMINOPHEN 5/325MG TABLET PO PRN (11:26)
[2020-05-01] MEDS: IPRATROPIUM/ALBUTEROL 0.5-3(2.5)MG/3ML NEB NEB PRN ×2 (12:30→16:20)
[2020-05-01 13:36] LABS: PLATELET ESTIMATE NORMAL
[2020-05-01] MEDS: NITROFURANTOIN 100MG M/M CAPSULE PO SCH (17:33)
[2020-05-01] MEDS: SODIUM BICARBONATE 50 MEQ in SODIUM CHLORIDE 0.45% 1,000 ML IV SCH (20:57)
[2020-05-01] MEDS: CALCIUM CARBONATE 1250MG TABLET (500MG ELEMENTAL CALCIUM) PO SCH (21:32)
[2020-05-02] VITALS (12 sets, daily range): BP systolic 128–163; BP diastolic 50–84
[2020-05-02] MEDS: METOCLOPRAMIDE HCL 10MG/2ML VIAL IV SCH ×5 (00:22→23:50)
[2020-05-02] MEDS: HYDROCODONE/ACETAMINOPHEN 5/325MG TABLET PO PRN (01:27)
[2020-05-02] MEDS: SODIUM BICARBONATE 50 MEQ in SODIUM CHLORIDE 0.45% 1,000 ML IV SCH ×2 (02:30→23:49)
[2020-05-02 06:34] LABS: HEMATOCRIT. 28.7 % (36.0-48.0); HEMOGLOBIN. 9.6 g/dL (12.0-16.0); MEAN CORPUSCULAR HEMOGLOBIN 27.7 pg (28.0-32.0); MEAN CORPUSCULAR VOLUME 82.9 fL (81.0-99.0); MEAN PLATELET VOLUME 7.4 fl (7.4-10.4); PLATELET 254 x1000/uL (130-400); RED BLOOD CELL COUNT 3.47 mill/uL (4.2-5.4); RED CELL DISTRIBUTION WIDTH 18.3 % (11.6-14.6)
[2020-05-02 07:37] LABS: PHOSPHORUS 4.4 mg/dL (2.5-4.9)
[2020-05-02] MEDS: INSULIN LISPRO 100 UNITS/ML SUBCUT SCH ×4 (08:00→20:50)
[2020-05-02] MEDS: BLOOD SUGAR DIAGNOSTIC STRIP TEST SCH ×4 (08:17→21:08)
[2020-05-02] MEDS: CALCIUM CARBONATE 1250MG TABLET (500MG ELEMENTAL CALCIUM) PO SCH ×3 (08:54→17:05)
[2020-05-02] MEDS: FLUCONAZOLE 100MG TABLET PO SCH (08:54)
[2020-05-02] MEDS: PANTOPRAZOLE SODIUM 40 MG/VIAL IV SCH (08:54)
[2020-05-02] MEDS: ZINC SULFATE 220 MG ( 50 ) CAPSULE PO SCH (08:54)
[2020-05-02] MEDS: MIDODRINE HCL 5MG TABLET PO SCH ×3 (08:55→17:00)
[2020-05-02 11:04] LABS: PLATELET ESTIMATE NORMAL
[2020-05-02] MEDS: IRON SUCROSE COMPLEX 100 MG/5 ML ML IV SCH (11:38)
[2020-05-02] MEDS: NITROFURANTOIN 100MG M/M CAPSULE PO SCH (13:40)
[2020-05-02] MEDS: CALCITRIOL 0.25MCG CAPSULE PO SCH (17:05)
[2020-05-03] VITALS (13 sets, daily range): BP systolic 100–162; BP diastolic 43–109
[2020-05-03] MEDS: METOCLOPRAMIDE HCL 10MG/2ML VIAL IV SCH ×3 (05:19→17:36)
[2020-05-03] MEDS: HYDRALAZINE 20MG/ML VIAL IV PRN ×2 (05:20→18:12)
[2020-05-03] MEDS: BLOOD SUGAR DIAGNOSTIC STRIP TEST SCH ×4 (07:30→21:00)
[2020-05-03] MEDS: INSULIN LISPRO 100 UNITS/ML SUBCUT SCH ×4 (07:55→21:00)
[2020-05-03] MEDS: FAMOTIDINE 20MG/2ML VIAL IV SCH (08:06)
[2020-05-03] MEDS: CALCITRIOL 0.25MCG CAPSULE PO SCH (08:06)
[2020-05-03] MEDS: ASCORBIC ACID 500 MG TABLET PO SCH (08:06)
[2020-05-03] MEDS: ZINC SULFATE 220 MG ( 50 ) CAPSULE PO SCH (08:06)
[2020-05-03] MEDS: ACETAMINOPHEN 325MG TABLET PO PRN (08:07)
[2020-05-03] MEDS: FLUCONAZOLE 100MG TABLET PO SCH (08:07)
[2020-05-03] MEDS: IPRATROPIUM/ALBUTEROL 0.5-3(2.5)MG/3ML NEB NEB PRN ×3 (08:15→16:35)
[2020-05-03 08:18] LABS: HEMATOCRIT. 39.7 % (36.0-48.0); HEMOGLOBIN. 13.1 g/dL (12.0-16.0); MEAN CORPUSCULAR HEMOGLOBIN 27.8 pg (28.0-32.0); MEAN CORPUSCULAR VOLUME 84.1 fL (81.0-99.0); MEAN PLATELET VOLUME 7.9 fl (7.4-10.4); PLATELET 226 x1000/uL (130-400); RED BLOOD CELL COUNT 4.72 mill/uL (4.2-5.4); RED CELL DISTRIBUTION WIDTH 19.2 % (11.6-14.6)
[2020-05-03 08:39] LABS: PHOSPHORUS 3.3 mg/dL (2.5-4.9)
[2020-05-03] MEDS ORDERED: AMLODIPINE 5MG TABLET PO SCH (09:00)
[2020-05-03] MEDS: CALCIUM CARBONATE 1250MG TABLET (500MG ELEMENTAL CALCIUM) PO SCH (12:11)
[2020-05-03] MEDS: LORAZEPAM 2MG/ML CPJ IV PRN (12:13)
[2020-05-03 13:55] LABS: PLATELET ESTIMATE NORMAL
[2020-05-03] MEDS: NITROFURANTOIN 100MG M/M CAPSULE PO SCH (14:00)
[2020-05-03] MEDS: SODIUM BICARBONATE 50 MEQ in SODIUM CHLORIDE 0.45% 1,000 ML IV SCH (20:58)
[2020-05-03] MEDS: AMLODIPINE 5MG TABLET PO SCH (21:00)
[2020-05-04] VITALS (13 sets, daily range): BP systolic 102–154; BP diastolic 48–93
[2020-05-04] MEDS: METOCLOPRAMIDE HCL 10MG/2ML VIAL IV SCH ×4 (00:11→18:05)
[2020-05-04] MEDS: LORAZEPAM 2MG/ML CPJ IV PRN (00:12)
[2020-05-04] MEDS: HYDRALAZINE 20MG/ML VIAL IV PRN ×2 (00:12→18:54)
[2020-05-04 06:20] LABS: INR 1.1; PARTIAL THROMBOPLASTIN TIME 38.6 sec (23.4-31.0); PROTHROMBIN TIME 11.4 sec (9.6-11.0)
[2020-05-04 06:34] LABS: PHOSPHORUS 3.9 mg/dL (2.5-4.9)
[2020-05-04] MEDS: BLOOD SUGAR DIAGNOSTIC STRIP TEST SCH ×5 (07:30→21:32)
[2020-05-04] MEDS: INSULIN LISPRO 100 UNITS/ML SUBCUT SCH ×4 (08:00→21:37)
[2020-05-04] MEDS: FLUCONAZOLE 100MG TABLET PO SCH ×2 (08:12→09:00)
[2020-05-04] MEDS: FAMOTIDINE 20MG/2ML VIAL IV SCH ×2 (08:12→09:27)
[2020-05-04] MEDS: AMLODIPINE 5MG TABLET PO SCH ×2 (08:12→09:00)
[2020-05-04] MEDS: ZINC SULFATE 220 MG ( 50 ) CAPSULE PO SCH ×2 (08:13→09:00)
[2020-05-04] MEDS: ASCORBIC ACID 500 MG TABLET PO SCH ×2 (08:13→09:00)
[2020-05-04] MEDS: CALCITRIOL 0.25MCG CAPSULE PO SCH ×2 (08:13→09:00)
[2020-05-04 09:08] LABS: HEMATOCRIT. 32.3 % (36.0-48.0); HEMOGLOBIN. 10.2 g/dL (12.0-16.0); MEAN CORPUSCULAR HEMOGLOBIN 26.8 pg (28.0-32.0); MEAN CORPUSCULAR VOLUME 84.9 fL (81.0-99.0); MEAN PLATELET VOLUME 7.1 fl (7.4-10.4); PLATELET 232 x1000/uL (130-400); RED BLOOD CELL COUNT 3.81 mill/uL (4.2-5.4); RED CELL DISTRIBUTION WIDTH 19.4 % (11.6-14.6)
[2020-05-04] MEDS ORDERED: PROPOFOL 200MG/20ML VIAL IV ONE (09:18)
[2020-05-04] MEDS ORDERED: MIDAZOLAM HCL 2 MG/2 ML VIAL ONE (09:18)
[2020-05-04] MEDS ORDERED: FENTANYL CITRATE/PF 50MCG/ML 2ML VIAL ONE (09:18)
[2020-05-04] MEDS ORDERED: IOPAMIDOL 20 ML VIAL IT ONE (09:29)
[2020-05-04] MEDS ORDERED: EPHEDRINE SULFATE 50MG/ML VIAL ONE (10:20)
[2020-05-04] MEDS ORDERED: EPHEDRINE SULFATE 50MG/ML VIAL IV PRN (10:45)
[2020-05-04] MEDS ORDERED: ONDANSETRON HCL 4MG/2ML INJ IV PRN (10:45)
[2020-05-04] MEDS ORDERED: FENTANYL CITRATE/PF 50MCG/ML 2ML VIAL IV PRN (10:45)
[2020-05-04 11:57] LABS: PLATELET ESTIMATE NORMAL
[2020-05-04] MEDS: DEXT 5%/0.9% NACL 1,000 ML IV SCH (12:11)
[2020-05-04] MEDS ORDERED: GENTAMICIN 120MG PREMIX 100 ML IV NR (12:30)
[2020-05-04] MEDS: NITROFURANTOIN 100MG M/M CAPSULE PO SCH (14:56)
[2020-05-04] MEDS ORDERED: AMLODIPINE 2.5MG TABLET PO SCH (21:00)
[2020-05-04] MEDS ORDERED: METOPROLOL TARTRATE 5MG/5ML VIAL IV PRN (21:30)
[2020-05-05] VITALS (12 sets, daily range): BP systolic 123–165; BP diastolic 60–98
[2020-05-05] MEDS: METOCLOPRAMIDE HCL 10MG/2ML VIAL IV SCH ×4 (00:51→17:16)
[2020-05-05] MEDS: LORAZEPAM 2MG/ML CPJ IV PRN ×2 (01:56→21:46)
[2020-05-05] MEDS: DEXT 5%/0.9% NACL 1,000 ML IV SCH (04:30)
[2020-05-05] MEDS: ACETAMINOPHEN 325MG TABLET PO PRN (04:40)
[2020-05-05] MEDS: BLOOD SUGAR DIAGNOSTIC STRIP TEST SCH ×4 (06:11→21:36)
[2020-05-05] MEDS: INSULIN LISPRO 100 UNITS/ML SUBCUT SCH ×4 (06:11→21:00)
[2020-05-05 07:01] LABS: HEMATOCRIT. 32.9 % (36.0-48.0); HEMOGLOBIN. 10.6 g/dL (12.0-16.0); MEAN CORPUSCULAR HEMOGLOBIN 27.5 pg (28.0-32.0); MEAN CORPUSCULAR VOLUME 85.3 fL (81.0-99.0); MEAN PLATELET VOLUME 7.3 fl (7.4-10.4); PLATELET 235 x1000/uL (130-400); RED BLOOD CELL COUNT 3.85 mill/uL (4.2-5.4); RED CELL DISTRIBUTION WIDTH 19.8 % (11.6-14.6)
[2020-05-05] MEDS: ZINC SULFATE 220 MG ( 50 ) CAPSULE PO SCH (09:00)
[2020-05-05] MEDS: CALCIUM CARBONATE 500MG TABLET CHEW PO SCH ×2 (09:00→17:00)
[2020-05-05] MEDS: ASCORBIC ACID 500 MG TABLET PO SCH (09:00)
[2020-05-05] MEDS: FLUCONAZOLE 100MG TABLET PO SCH (09:00)
[2020-05-05] MEDS ORDERED: ERGOCALCIFEROL 50000UNITS CAPSULE PO SCH (09:00)
[2020-05-05] MEDS: AMLODIPINE 5MG TABLET PO SCH ×2 (09:00→21:00)
[2020-05-05 09:14] LABS: PLATELET ESTIMATE NORMAL
[2020-05-05] MEDS: FAMOTIDINE 20MG/2ML VIAL IV SCH (10:22)
[2020-05-05] MEDS: DEXT 5%/0.45% NACL KCL 10MEQ/L 1,000 ML IV SCH (10:23)
[2020-05-05] MEDS: NITROFURANTOIN 100MG M/M CAPSULE PO SCH (14:00)
[2020-05-06] VITALS (10 sets, daily range): BP systolic 136–166; BP diastolic 68–86
[2020-05-06] MEDS: METOCLOPRAMIDE HCL 10MG/2ML VIAL IV SCH ×3 (00:15→11:16)
[2020-05-06] MEDS: DEXT 5%/0.45% NACL KCL 10MEQ/L 1,000 ML IV SCH (00:16)
[2020-05-06 06:06] LABS: HEMATOCRIT. 30.4 % (36.0-48.0); HEMOGLOBIN. 9.4 g/dL (12.0-16.0); MEAN CORPUSCULAR HEMOGLOBIN 27.1 pg (28.0-32.0); MEAN CORPUSCULAR VOLUME 87.3 fL (81.0-99.0); MEAN PLATELET VOLUME 7.4 fl (7.4-10.4); PLATELET 193 x1000/uL (130-400); RED BLOOD CELL COUNT 3.48 mill/uL (4.2-5.4)
[2020-05-06] MEDS: BLOOD SUGAR DIAGNOSTIC STRIP TEST SCH ×3 (07:30→18:02)
[2020-05-06] MEDS: INSULIN LISPRO 100 UNITS/ML SUBCUT SCH ×2 (08:00→15:04)
[2020-05-06] MEDS: IPRATROPIUM/ALBUTEROL 0.5-3(2.5)MG/3ML NEB NEB PRN (08:55)
[2020-05-06] MEDS: AMLODIPINE 5MG TABLET PO SCH (08:58)
[2020-05-06] MEDS: CALCIUM CARBONATE 500MG TABLET CHEW PO SCH (08:58)
[2020-05-06] MEDS: ASCORBIC ACID 500 MG TABLET PO SCH (08:58)
[2020-05-06] MEDS: ZINC SULFATE 220 MG ( 50 ) CAPSULE PO SCH (08:58)
[2020-05-06] MEDS: FAMOTIDINE 20MG/2ML VIAL IV SCH (08:58)
[2020-05-06 09:45] LABS: PLATELET ESTIMATE NORMAL
[2020-05-06] MEDS ORDERED: MAGNESIUM 2 G PREMIX 50 ML IV NR (10:00)
[2020-05-06] MEDS ORDERED: CALCIUM GLUCONATE 1,000 MG in DEXT 5% WATER 90 ML IV NR (10:00)
[2020-05-06] MEDS: NITROFURANTOIN 100MG M/M CAPSULE PO SCH (14:00)
[2020-05-06] MEDS ORDERED: HYDRALAZINE 20MG/ML VIAL IV SCH (21:00)
== END 2020-05-06 18:40 | DRG 720 ==
LOC: ER 09:20 → MICUSO 12:59 → 5EST 04-28 11:32
PROVIDERS: ADMIT Internal Medicine; ATTEND Internal Medicine
PROC: 5A1955Z Respiratory Ventilation, Greater than 96 Consecutive Hours (ICD-10-PCS; principal; 2020-04-27)
PROC: 30233N1 Transfusion of Nonautologous Red Blood Cells into Peripheral Vein, Percutaneous Approach (ICD-10-PCS; 2020-04-30)
PROC: 02HV33Z Insertion of Infusion Device into Superior Vena Cava, Percutaneous Approach (ICD-10-PCS; 2020-05-01)
PROC: B548ZZA Ultrasonography of Superior Vena Cava, Guidance (ICD-10-PCS; 2020-05-01)
PROC: 0T778DZ Dilation of Left Ureter with Intraluminal Device, Via Natural or Artificial Opening Endoscopic (ICD-10-PCS; 2020-05-04)
PROC: BT1B1ZZ Fluoroscopy of Bladder and Urethra using Low Osmolar Contrast (ICD-10-PCS; 2020-05-04)
DX: A41.51 Sepsis due to Escherichia coli [E. coli] (principal); E43 Unspecified severe protein-calorie malnutrition; Z99.11 Dependence on respirator [ventilator] status; J18.9 Pneumonia, unspecified organism; J96.10 Chronic respiratory failure, unspecified whether with hypoxia or hypercapnia; L89.329 Pressure ulcer of left buttock, unspecified stage; N17.9 Acute kidney failure, unspecified; Z93.0 Tracheostomy status; E87.2 Acidosis; J44.0 Chronic obstructive pulmonary disease with (acute) lower respiratory infection; E87.1 Hypo-osmolality and hyponatremia; E11.65 Type 2 diabetes mellitus with hyperglycemia; D50.9 Iron deficiency anemia, unspecified; N13.6 Pyonephrosis; M19.90 Unspecified osteoarthritis, unspecified site; M41.9 Scoliosis, unspecified; E87.5 Hyperkalemia; E11.22 Type 2 diabetes mellitus with diabetic chronic kidney disease; E87.6 Hypokalemia; I12.9 Hypertensive chronic kidney disease with stage 1 through stage 4 chronic kidney disease, or unspecified chronic kidney disease; N18.9 Chronic kidney disease, unspecified; K31.9 Disease of stomach and duodenum, unspecified; Z16.11 Resistance to penicillins; K21.9 Gastro-esophageal reflux disease without esophagitis; F32.9 Major depressive disorder, single episode, unspecified; Z20.828 Contact with and (suspected) exposure to other viral communicable diseases; Z74.01 Bed confinement status; Z79.4 Long term (current) use of insulin; Z79.51 Long term (current) use of inhaled steroids; Z79.899 Other long term (current) drug therapy; Z82.49 Family history of ischemic heart disease and other diseases of the circulatory system; Z86.73 Personal history of transient ischemic attack (TIA), and cerebral infarction without residual deficits; Z87.01 Personal history of pneumonia (recurrent); Z87.440 Personal history of urinary (tract) infections; Z87.442 Personal history of urinary calculi; Z91.19 Patient's noncompliance with other medical treatment and regimen; Z88.8 Allergy status to other drugs, medicaments and biological substances
CPT/HCPCS: 36415; 36600; 71045; 74018; 74176; 76000; 76770; 76937; 80048; 80053; 80202; 81003; 82270; 82330; 82375; 82533; 82805; 82962; 83036; 83540; 83550; 83605; 83735; 83880; 83930; 84100; 84145; 84443; 84484; 85014; 85018; 85025; 86850; 86900; 86920; 87077; 87186; 92610; 93005; 93306; 93880; 94002; 94640; 99285; C1725; C1769; C2617; C9113; J0360; J0610; J1580; J1815; J2060; J2250; J2543; J2704; J2765; J3010; J3370; J3475; J3490; J7030; J7040; J7042; J7060; P9016; Q9966; U0003-CS

== ENCOUNTER 2020-06-22 14:50 | Inpatient (IN) | payer MEDICAID ==
[~2020-06-22] VITALS: Ht 162.6 cm; Wt 74.8 kg
[2020-06-22] MEDS ORDERED: CLONIDINE 0.1MG TABLET PO PRN (15:45)
[2020-06-22] MEDS: IPRATROPIUM/ALBUTEROL 0.5-3(2.5)MG/3ML NEB HHN SCH ×2 (16:00→22:00)
[2020-06-22 16:19] LABS: HEMATOCRIT. 27.9 % (36.0-48.0); HEMOGLOBIN. 8.8 g/dL (12.0-16.0); MEAN CORPUSCULAR HEMOGLOBIN 27.5 pg (28.0-32.0); MEAN CORPUSCULAR VOLUME 87.4 fL (81.0-99.0); MEAN PLATELET VOLUME 6.6 fl (7.4-10.4); PLATELET 428 x1000/uL (130-400); RED BLOOD CELL COUNT 3.19 mill/uL (4.2-5.4); RED CELL DISTRIBUTION WIDTH 18.7 % (11.6-14.6)
[2020-06-22 16:26] LABS: CHLORIDE 100 mEq/L (98-107)
[2020-06-22 16:27] LABS: PROTHROMBIN TIME 10.8 sec (9.6-11.0)
[2020-06-22] MEDS: MORPHINE SULFATE 4 MG/ML CPJ (NOT FOR IM USE) IV ONE (16:49)
[2020-06-22 16:51] LABS: NUCLEATED RED BLOOD CELLS 1 /100 WBC; PLATELET ESTIMATE SLIGHTLY INCREASED
[2020-06-22 17:19] LABS: CLARITY URINE TURBID (CLEAR); COLOR URINE YELLOW (YELLOW); KETONES URINE NEGATIVE (NEGATIVE); LEUKOCYTE ESTERASE URINE 3+ (NEGATIVE); NITRITE URINE POSITIVE (NEGATIVE); OCCULT BLOOD URINE 3+ (NEGATIVE); PH URINE 8.5 (4.5-8.0); PROTEIN URINE 2+ (NEGATIVE); SPECIFIC GRAVITY URINE 1.017 (1.005-1.030); UROBILINOGEN URINE 0.2 E.U./dL (0.2-1.0)
[2020-06-22] MEDS ORDERED: CEFTRIAXONE 1 G PREMIX 50 ML IV ONE (18:15)
[2020-06-22] MEDS ORDERED: DEXTROSE 50% WATER 50ML SYRINGE IV PRN (19:15)
[2020-06-22] MEDS: INSULIN LISPRO 100 UNITS/ML SUBCUT SCH (21:00)
[2020-06-22] MEDS: BLOOD SUGAR DIAGNOSTIC STRIP TEST SCH (21:00)
[2020-06-22 22:50] VITALS: BP 138/75
[2020-06-22 23:00] VITALS: BP 138/75
[2020-06-22] MEDS: ENOXAPARIN 40MG/0.4ML SYR SUBCUT SCH (23:00)
[2020-06-22] MEDS: ONDANSETRON HCL 4MG/2ML INJ IV PRN (23:49)
[2020-06-23] VITALS (12 sets, daily range): BP systolic 84–139; BP diastolic 30–77
[2020-06-23] MEDS: IPRATROPIUM/ALBUTEROL 0.5-3(2.5)MG/3ML NEB HHN SCH ×6 (00:16→20:06)
[2020-06-23] MEDS: SODIUM CHLORIDE 0.9% 1,000 ML IV SCH ×3 (00:48→17:04)
[2020-06-23 06:40] LABS: BASOPHILS % 0.7 % (0.0-2.0); EOSINOPHILS % 2.2 % (0.0-5.0); HEMATOCRIT. 27.5 % (36.0-48.0); HEMOGLOBIN. 8.6 g/dL (12.0-16.0); LYMPHOCYTES % 8.8 % (20.0-50.0); MEAN CORPUSCULAR HEMOGLOBIN 27.5 pg (28.0-32.0); MEAN CORPUSCULAR VOLUME 87.2 fL (81.0-99.0); MEAN PLATELET VOLUME 6.6 fl (7.4-10.4); MONOCYTES % 10.9 % (2.0-8.0); NEUTROPHILS % 77.4 % (40.0-76.0); PLATELET 415 x1000/uL (130-400); RED BLOOD CELL COUNT 3.15 mill/uL (4.2-5.4); RED CELL DISTRIBUTION WIDTH 18.5 % (11.6-14.6)
[2020-06-23 06:48] LABS: CHLORIDE 102 mEq/L (98-107)
[2020-06-23] MEDS: BLOOD SUGAR DIAGNOSTIC STRIP TEST SCH ×4 (07:30→21:22)
[2020-06-23] MEDS: INSULIN LISPRO 100 UNITS/ML SUBCUT SCH ×4 (08:00→21:21)
[2020-06-23 09:45] LABS: BG BASE EXCESS 4.6 mmol/L (-2.0-2.0); BG CARBOXYHEMOGLOBIN 1.3 % (0.5-1.5); BG DEOXYHEMOGLOBIN 1.7 % (0.0-5.0); BG FRACTION INSPIRED OXYGEN 40; BG HCO3 ACT 30.4 mmol/L (22.0-26.0); BG METHEMOGLOBIN 0.2 % (0.0-1.5); BG OXYGEN SATURATION 98.3 % (92.0-98.5); BG OXYHEMOGLOBIN 96.8 % (94.0-97.0); BG PCO2 52.6 mmHg (35.0-45.0); BG PEEP (cmH2O) 0 cmH2O; BG PO2 112.6 mmHg (75.0-100.0); BG PRESSURE SUPPORT 10; BG SAMPLE SITE RIGHT RADIAL; BG TIDAL VOLUME(mL) 500 mL; BG TOTAL HEMOGLOBIN 8.3 g/dL (12.0-18.0); BG VENT MODE VENT - SIMV; BG VENT RATE 12 set
[2020-06-23] MEDS ORDERED: IPRATROPIUM/ALBUTEROL 0.5-3(2.5)MG/3ML NEB HHN PRN (10:15)
[2020-06-23] MEDS: LORAZEPAM 0.5MG TABLET PO PRN (10:16)
[2020-06-23] MEDS ORDERED: LIDOCAINE HCL 2% JELLY 5ML ONE (10:47)
[2020-06-23] MEDS ORDERED: FENTANYL CITRATE/PF 50MCG/ML 2ML VIAL ONE (12:12)
[2020-06-23] MEDS ORDERED: SODIUM CHLORIDE 0.9% 10ML VIAL ONE (12:14)
[2020-06-23] MEDS ORDERED: CEFAZOLIN SODIUM 1000MG/VIAL ONE (12:14)
[2020-06-23] MEDS ORDERED: CEFTRIAXONE 1,000 MG in DEXTROSE 5% WATER 50 ML IV SCH (18:00)
[2020-06-23] MEDS: ENOXAPARIN 40MG/0.4ML SYR SUBCUT SCH (20:00)
[2020-06-24] VITALS (12 sets, daily range): BP systolic 104–141; BP diastolic 57–73
[2020-06-24] MEDS: IPRATROPIUM/ALBUTEROL 0.5-3(2.5)MG/3ML NEB HHN SCH ×6 (00:08→20:43)
[2020-06-24] MEDS: LORAZEPAM 0.5MG TABLET PO PRN ×3 (01:01→10:42)
[2020-06-24 06:43] LABS: HEMATOCRIT. 28.9 % (36.0-48.0); HEMOGLOBIN. 8.9 g/dL (12.0-16.0); MEAN CORPUSCULAR HEMOGLOBIN 27.6 pg (28.0-32.0); MEAN CORPUSCULAR VOLUME 89.4 fL (81.0-99.0); MEAN PLATELET VOLUME 6.9 fl (7.4-10.4); PLATELET 445 x1000/uL (130-400); RED BLOOD CELL COUNT 3.23 mill/uL (4.2-5.4); RED CELL DISTRIBUTION WIDTH 18.7 % (11.6-14.6)
[2020-06-24 06:59] LABS: CHLORIDE 107 mEq/L (98-107)
[2020-06-24 07:11] LABS: TOTAL IRON BINDING CAPACITY 304 ug/dL (250-450)
[2020-06-24] MEDS: BLOOD SUGAR DIAGNOSTIC STRIP TEST SCH ×4 (07:50→20:18)
[2020-06-24] MEDS: INSULIN LISPRO 100 UNITS/ML SUBCUT SCH ×4 (08:00→20:18)
[2020-06-24 15:23] LABS: PLATELET ESTIMATE INCREASED
[2020-06-24] MEDS: CEFEPIME 1,000 MG in DEXTROSE 5% WATER 50 ML IV SCH (17:06)
[2020-06-24] MEDS: ENOXAPARIN 40MG/0.4ML SYR SUBCUT SCH (20:00)
[2020-06-24] MEDS: SODIUM CHLORIDE 0.9% 1,000 ML IV SCH (22:28)
[2020-06-25] VITALS (17 sets, daily range): BP systolic 105–135; BP diastolic 55–95
[2020-06-25] MEDS: IPRATROPIUM/ALBUTEROL 0.5-3(2.5)MG/3ML NEB HHN SCH ×6 (00:25→20:27)
[2020-06-25] MEDS: LORAZEPAM 0.5MG TABLET PO PRN ×2 (00:43→18:07)
[2020-06-25] MEDS: CEFEPIME 1,000 MG in DEXTROSE 5% WATER 50 ML IV SCH ×2 (03:56→16:53)
[2020-06-25 07:04] LABS: CHLORIDE 110 mEq/L (98-107)
[2020-06-25 07:14] LABS: HEMATOCRIT. 22.4 % (36.0-48.0); MEAN CORPUSCULAR HEMOGLOBIN 27.1 pg (28.0-32.0); MEAN CORPUSCULAR VOLUME 89.7 fL (81.0-99.0); MEAN PLATELET VOLUME 6.8 fl (7.4-10.4); PLATELET 328 x1000/uL (130-400); RED CELL DISTRIBUTION WIDTH 18.5 % (11.6-14.6)
[2020-06-25] MEDS: INSULIN LISPRO 100 UNITS/ML SUBCUT SCH ×4 (08:00→21:00)
[2020-06-25] MEDS: ASCORBIC ACID 500 MG TABLET PO SCH (08:20)
[2020-06-25] MEDS: ZINC SULFATE 220 MG ( 50 ) CAPSULE PO SCH (08:21)
[2020-06-25] MEDS: BLOOD SUGAR DIAGNOSTIC STRIP TEST SCH ×4 (08:21→21:34)
[2020-06-25 09:29] LABS: HEMOGLOBIN. 6.8 g/dL (12.0-16.0)
[2020-06-25] MEDS ORDERED: DEXT 5%/0.45% NACL KCL 20MEQ/L 1,000 ML IV SCH (11:00)
[2020-06-25] MEDS: SODIUM CHLORIDE 0.9% 1,000 ML IV SCH (11:04)
[2020-06-25] MEDS ORDERED: KCL 20MEQ/100ML PREMIX 100 ML IV SCH (12:00)
[2020-06-25 12:43] LABS: HEMATOCRIT 22.5 % (36.0-48.0)
[2020-06-25 12:58] LABS: BG BASE EXCESS -0.3 mmol/L (-2.0-2.0); BG CARBOXYHEMOGLOBIN 1.4 % (0.5-1.5); BG DEOXYHEMOGLOBIN 5.7 % (0.0-5.0); BG FRACTION INSPIRED OXYGEN 100; BG HCO3 ACT 25.4 mmol/L (22.0-26.0); BG OXYGEN SATURATION 94.2 % (92.0-98.5); BG OXYHEMOGLOBIN 92.9 % (94.0-97.0); BG PCO2 46.8 mmHg (35.0-45.0); BG PH 7.352 (7.350-7.450); BG PO2 66.9 mmHg (75.0-100.0); BG SAMPLE SITE RIGHT RADIAL; BG TIDAL VOLUME(mL) 500 mL; BG TOTAL HEMOGLOBIN 7.8 g/dL (12.0-18.0); BG VENT MODE VENT - A/C; BG VENT RATE 12 set
[2020-06-25] MEDS: ONDANSETRON HCL 4MG/2ML INJ IV PRN (14:57)
[2020-06-25 16:50] LABS: PLATELET ESTIMATE NORMAL
[2020-06-25] MEDS: DEXT 5%/0.45% NACL KCL 20MEQ/L 1,000 ML IV SCH (16:53)
[2020-06-25] MEDS: PANTOPRAZOLE SODIUM 40 MG/VIAL IV SCH (16:57)
[2020-06-25] MEDS ORDERED: SODIUM CHLORIDE 10% FOR INH 15ML VIAL NEB INH SCH (17:00)
[2020-06-25] MEDS: ACETYLCYSTEINE 100MG/ML 10% VIAL 4ML INH SCH (17:01)
[2020-06-25] MEDS: LORAZEPAM 2MG/ML CPJ IM PRN (18:58)
[2020-06-25] MEDS ORDERED: ACETYLCYSTEINE 100MG/ML 10% VIAL 4ML INH SCH (21:00)
[2020-06-26] VITALS (13 sets, daily range): BP systolic 108–146; BP diastolic 25–78
[2020-06-26 00:27] LABS: HEMATOCRIT 29.1 % (36.0-48.0)
[2020-06-26] MEDS: IPRATROPIUM/ALBUTEROL 0.5-3(2.5)MG/3ML NEB HHN SCH ×6 (00:39→20:16)
[2020-06-26] MEDS: ACETYLCYSTEINE 100MG/ML 10% VIAL 4ML INH SCH ×3 (00:40→16:50)
[2020-06-26] MEDS: LORAZEPAM 2MG/ML CPJ IM PRN (03:37)
[2020-06-26] MEDS: CEFEPIME 1,000 MG in DEXTROSE 5% WATER 50 ML IV SCH ×2 (03:37→15:59)
[2020-06-26 06:09] LABS: BG BASE EXCESS -8.1 mmol/L (-2.0-2.0); BG CARBOXYHEMOGLOBIN 1.3 % (0.5-1.5); BG DEOXYHEMOGLOBIN 0.4 % (0.0-5.0); BG FRACTION INSPIRED OXYGEN 100; BG HCO3 ACT 19.8 mmol/L (22.0-26.0); BG METHEMOGLOBIN 0.3 % (0.0-1.5); BG OXYGEN SATURATION 99.6 % (92.0-98.5); BG PCO2 51.1 mmHg (35.0-45.0); BG PH 7.206 (7.350-7.450); BG PO2 282.4 mmHg (75.0-100.0); BG SAMPLE SITE RIGHT RADIAL; BG TIDAL VOLUME(mL) 500 mL; BG VENT MODE VENT - A/C; BG VENT RATE 12 set
[2020-06-26 07:51] LABS: HEMATOCRIT. 32.1 % (36.0-48.0); HEMOGLOBIN. 9.9 g/dL (12.0-16.0); MEAN CORPUSCULAR HEMOGLOBIN 28.1 pg (28.0-32.0); MEAN PLATELET VOLUME 7.2 fl (7.4-10.4); PLATELET 385 x1000/uL (130-400); RED BLOOD CELL COUNT 3.53 mill/uL (4.2-5.4); RED CELL DISTRIBUTION WIDTH 17.6 % (11.6-14.6)
[2020-06-26] MEDS: INSULIN LISPRO 100 UNITS/ML SUBCUT SCH ×4 (08:21→21:00)
[2020-06-26] MEDS: ZINC SULFATE 220 MG ( 50 ) CAPSULE PO SCH (08:22)
[2020-06-26] MEDS: ASCORBIC ACID 500 MG TABLET PO SCH (08:22)
[2020-06-26] MEDS: PANTOPRAZOLE SODIUM 40 MG/VIAL IV SCH (08:22)
[2020-06-26] MEDS: BLOOD SUGAR DIAGNOSTIC STRIP TEST SCH ×4 (08:22→21:29)
[2020-06-26] MEDS: DEXT 5%/0.45% NACL KCL 20MEQ/L 1,000 ML IV SCH ×2 (08:23→17:44)
[2020-06-26 08:39] LABS: CHLORIDE 108 mEq/L (98-107)
[2020-06-26] MEDS: ACETAMINOPHEN 325MG TABLET PO PRN (10:33)
[2020-06-26 11:30] LABS: NUCLEATED RED BLOOD CELLS 1 /100 WBC
[2020-06-26 11:31] LABS: PLATELET ESTIMATE NORMAL
[2020-06-26] MEDS: VANCOMYCIN 1 G PREMIX 200 ML IV SCH ×2 (12:34→23:06)
[2020-06-26 16:22] LABS: BG BASE EXCESS -4.4 mmol/L (-2.0-2.0); BG CARBOXYHEMOGLOBIN 0.8 % (0.5-1.5); BG DEOXYHEMOGLOBIN 1.6 % (0.0-5.0); BG FRACTION INSPIRED OXYGEN 70; BG HCO3 ACT 22.1 mmol/L (22.0-26.0); BG METHEMOGLOBIN 0.3 % (0.0-1.5); BG OXYGEN SATURATION 98.4 % (92.0-98.5); BG OXYHEMOGLOBIN 97.3 % (94.0-97.0); BG PCO2 46.6 mmHg (35.0-45.0); BG PH 7.293 (7.350-7.450); BG PO2 113.7 mmHg (75.0-100.0); BG SAMPLE SITE RIGHT RADIAL; BG TIDAL VOLUME(mL) 500 mL; BG VENT MODE VENT - A/C; BG VENT RATE 12 set
[2020-06-27] VITALS (12 sets, daily range): BP systolic 96–143; BP diastolic 46–86
[2020-06-27] MEDS: IPRATROPIUM/ALBUTEROL 0.5-3(2.5)MG/3ML NEB HHN SCH ×6 (00:38→20:38)
[2020-06-27] MEDS: ACETYLCYSTEINE 100MG/ML 10% VIAL 4ML INH SCH ×3 (00:39→15:30)
[2020-06-27] MEDS: CEFEPIME 1,000 MG in DEXTROSE 5% WATER 50 ML IV SCH ×2 (04:23→15:29)
[2020-06-27] MEDS: LORAZEPAM 2MG/ML CPJ IM PRN (07:19)
[2020-06-27] MEDS: INSULIN LISPRO 100 UNITS/ML SUBCUT SCH ×4 (08:00→20:53)
[2020-06-27] MEDS: BLOOD SUGAR DIAGNOSTIC STRIP TEST SCH ×4 (08:04→20:53)
[2020-06-27] MEDS: ZINC SULFATE 220 MG ( 50 ) CAPSULE PO SCH (08:08)
[2020-06-27] MEDS: ASCORBIC ACID 500 MG TABLET PO SCH (08:08)
[2020-06-27] MEDS: DEXT 5%/0.45% NACL KCL 20MEQ/L 1,000 ML IV SCH (08:08)
[2020-06-27] MEDS: FAMOTIDINE 20MG/2ML VIAL IV SCH ×2 (08:08→20:53)
[2020-06-27 09:28] LABS: BASOPHILS % 0.4 % (0.0-2.0); EOSINOPHILS % 0.6 % (0.0-5.0); MEAN CORPUSCULAR HEMOGLOBIN 28.3 pg (28.0-32.0); MEAN CORPUSCULAR VOLUME 91.6 fL (81.0-99.0); MEAN PLATELET VOLUME 6.9 fl (7.4-10.4); MONOCYTES % 10.3 % (2.0-8.0); NEUTROPHILS % 80.7 % (40.0-76.0); PLATELET 307 x1000/uL (130-400); RED BLOOD CELL COUNT 3.16 mill/uL (4.2-5.4); RED CELL DISTRIBUTION WIDTH 17.9 % (11.6-14.6)
[2020-06-27 09:49] LABS: CHLORIDE 110 mEq/L (98-107)
[2020-06-27] MEDS: VANCOMYCIN 1 G PREMIX 200 ML IV SCH ×2 (11:41→23:31)
[2020-06-28] VITALS (12 sets, daily range): BP systolic 96–146; BP diastolic 51–84
[2020-06-28] MEDS: ACETYLCYSTEINE 100MG/ML 10% VIAL 4ML INH SCH ×4 (00:04→20:53)
[2020-06-28] MEDS: IPRATROPIUM/ALBUTEROL 0.5-3(2.5)MG/3ML NEB HHN SCH ×5 (00:05→20:53)
[2020-06-28] MEDS: DEXT 5%/0.45% NACL KCL 20MEQ/L 1,000 ML IV SCH ×2 (02:20→10:40)
[2020-06-28] MEDS: CEFEPIME 1,000 MG in DEXTROSE 5% WATER 50 ML IV SCH (04:11)
[2020-06-28] MEDS: ONDANSETRON HCL 4MG/2ML INJ IV PRN ×3 (04:24→21:05)
[2020-06-28] MEDS: BLOOD SUGAR DIAGNOSTIC STRIP TEST SCH ×4 (07:30→20:37)
[2020-06-28] MEDS: INSULIN LISPRO 100 UNITS/ML SUBCUT SCH ×4 (08:00→20:37)
[2020-06-28] MEDS: FAMOTIDINE 20MG/2ML VIAL IV SCH ×2 (08:24→20:31)
[2020-06-28] MEDS: ZINC SULFATE 220 MG ( 50 ) CAPSULE PO SCH (08:24)
[2020-06-28] MEDS: ASCORBIC ACID 500 MG TABLET PO SCH (08:25)
[2020-06-28 10:07] LABS: BG CARBOXYHEMOGLOBIN 0.7 % (0.5-1.5); BG DEOXYHEMOGLOBIN 5.8 % (0.0-5.0); BG FRACTION INSPIRED OXYGEN 50; BG METHEMOGLOBIN 0.3 % (0.0-1.5); BG OXYGEN SATURATION 94.1 % (92.0-98.5); BG OXYHEMOGLOBIN 93.2 % (94.0-97.0); BG PCO2 52.3 mmHg (35.0-45.0); BG PH 7.279 (7.350-7.450); BG PO2 72.5 mmHg (75.0-100.0); BG SAMPLE SITE RIGHT RADIAL; BG TIDAL VOLUME(mL) 500 mL; BG TOTAL HEMOGLOBIN 10.3 g/dL (12.0-18.0); BG VENT MODE VENT - A/C; BG VENT RATE 12 set
[2020-06-28 11:05] LABS: CHLORIDE 109 mEq/L (98-107)
[2020-06-28] MEDS: CEFTAZIDIME PENTAHYDRATE 2 G in DEXT 5% WATER 100 ML IV SCH ×2 (17:19→22:10)
[2020-06-28] MEDS: LORAZEPAM 2MG/ML CPJ IM PRN (22:10)
[2020-06-29] VITALS (12 sets, daily range): BP systolic 94–140; BP diastolic 59–82
[2020-06-29] MEDS: IPRATROPIUM/ALBUTEROL 0.5-3(2.5)MG/3ML NEB HHN SCH ×6 (00:11→20:15)
[2020-06-29] MEDS: CEFTAZIDIME PENTAHYDRATE 2 G in DEXT 5% WATER 100 ML IV SCH ×3 (05:13→21:00)
[2020-06-29 06:46] LABS: CHLORIDE 107 mEq/L (98-107)
[2020-06-29 07:05] LABS: HEMATOCRIT. 28.8 % (36.0-48.0); HEMOGLOBIN. 8.9 g/dL (12.0-16.0); MEAN CORPUSCULAR HEMOGLOBIN 27.9 pg (28.0-32.0); MEAN CORPUSCULAR VOLUME 89.8 fL (81.0-99.0); MEAN PLATELET VOLUME 7.1 fl (7.4-10.4); PLATELET 337 x1000/uL (130-400); RED CELL DISTRIBUTION WIDTH 18.3 % (11.6-14.6)
[2020-06-29] MEDS: BLOOD SUGAR DIAGNOSTIC STRIP TEST SCH ×4 (08:21→21:15)
[2020-06-29] MEDS: ACETYLCYSTEINE 100MG/ML 10% VIAL 4ML INH SCH (08:21)
[2020-06-29] MEDS: ASCORBIC ACID 500 MG TABLET PO SCH (08:38)
[2020-06-29] MEDS: ZINC SULFATE 220 MG ( 50 ) CAPSULE PO SCH (08:38)
[2020-06-29] MEDS: FAMOTIDINE 20MG/2ML VIAL IV SCH ×2 (08:38→21:00)
[2020-06-29] MEDS: INSULIN LISPRO 100 UNITS/ML SUBCUT SCH ×4 (08:49→21:24)
[2020-06-29] MEDS: LORAZEPAM 2MG/ML CPJ IM PRN (09:39)
[2020-06-29 10:09] LABS: BG BASE EXCESS -1.1 mmol/L (-2.0-2.0); BG CARBOXYHEMOGLOBIN 1.3 % (0.5-1.5); BG DEOXYHEMOGLOBIN 7.5 % (0.0-5.0); BG FRACTION INSPIRED OXYGEN 40; BG HCO3 ACT 25.2 mmol/L (22.0-26.0); BG METHEMOGLOBIN 0.1 % (0.0-1.5); BG OXYGEN SATURATION 92.4 % (92.0-98.5); BG OXYHEMOGLOBIN 91.1 % (94.0-97.0); BG PCO2 49.5 mmHg (35.0-45.0); BG PH 7.324 (7.350-7.450); BG PO2 64.4 mmHg (75.0-100.0); BG SAMPLE SITE RIGHT RADIAL; BG TIDAL VOLUME(mL) 500 mL; BG TOTAL HEMOGLOBIN 10.3 g/dL (12.0-18.0); BG VENT MODE VENT - A/C; BG VENT RATE 16 set
[2020-06-29 17:39] LABS: PLATELET ESTIMATE NORMAL
[2020-06-30] VITALS (12 sets, daily range): BP systolic 91–128; BP diastolic 57–76
[2020-06-30] MEDS: ACETYLCYSTEINE 100MG/ML 10% VIAL 4ML INH SCH ×3 (00:29→16:25)
[2020-06-30] MEDS: IPRATROPIUM/ALBUTEROL 0.5-3(2.5)MG/3ML NEB HHN SCH ×6 (00:29→21:03)
[2020-06-30] MEDS: LORAZEPAM 2MG/ML CPJ IM PRN (03:09)
[2020-06-30] MEDS: CEFTAZIDIME PENTAHYDRATE 2 G in DEXT 5% WATER 100 ML IV SCH ×3 (05:10→21:57)
[2020-06-30] MEDS: ONDANSETRON HCL 4MG/2ML INJ IV PRN (05:16)
[2020-06-30 06:39] LABS: HEMATOCRIT. 29.1 % (36.0-48.0); HEMOGLOBIN. 9.1 g/dL (12.0-16.0); MEAN CORPUSCULAR VOLUME 89.2 fL (81.0-99.0); MEAN PLATELET VOLUME 7.2 fl (7.4-10.4); PLATELET 341 x1000/uL (130-400); RED BLOOD CELL COUNT 3.26 mill/uL (4.2-5.4); RED CELL DISTRIBUTION WIDTH 18.3 % (11.6-14.6)
[2020-06-30 06:56] LABS: CHLORIDE 104 mEq/L (98-107)
[2020-06-30] MEDS: BLOOD SUGAR DIAGNOSTIC STRIP TEST SCH ×4 (07:30→23:30)
[2020-06-30] MEDS: ASCORBIC ACID 500 MG TABLET PO SCH (08:39)
[2020-06-30] MEDS: ZINC SULFATE 220 MG ( 50 ) CAPSULE PO SCH (08:39)
[2020-06-30] MEDS: FAMOTIDINE 20MG/2ML VIAL IV SCH ×2 (08:39→21:56)
[2020-06-30] MEDS: INSULIN LISPRO 100 UNITS/ML SUBCUT SCH ×3 (08:48→17:44)
[2020-06-30] MEDS ORDERED: VANCOMYCIN 1 G PREMIX 200 ML IV SCH (11:00)
[2020-06-30] MEDS: CIPROFLOXACIN 0.3% OPHTH SOLN 2.5ML BOTHEYE SCH ×2 (17:36→21:56)
[2020-06-30] MEDS: NYSTATIN POWDER 15GM TOP SCH (21:56)
[2020-07-01] VITALS (12 sets, daily range): BP systolic 94–127; BP diastolic 42–72
[2020-07-01] MEDS: IPRATROPIUM/ALBUTEROL 0.5-3(2.5)MG/3ML NEB HHN SCH ×7 (01:00→23:55)
[2020-07-01] MEDS: INSULIN LISPRO 100 UNITS/ML SUBCUT SCH ×4 (05:51→16:30)
[2020-07-01] MEDS: CEFTAZIDIME PENTAHYDRATE 2 G in DEXT 5% WATER 100 ML IV SCH ×3 (05:51→21:54)
[2020-07-01] MEDS: BLOOD SUGAR DIAGNOSTIC STRIP TEST SCH ×4 (06:06→23:30)
[2020-07-01 06:15] LABS: CHLORIDE 100 mEq/L (98-107)
[2020-07-01 06:21] LABS: HEMATOCRIT. 26.3 % (36.0-48.0); HEMOGLOBIN. 8.4 g/dL (12.0-16.0); MEAN CORPUSCULAR HEMOGLOBIN 28.2 pg (28.0-32.0); MEAN CORPUSCULAR VOLUME 88.3 fL (81.0-99.0); MEAN PLATELET VOLUME 7.4 fl (7.4-10.4); PLATELET 344 x1000/uL (130-400); RED BLOOD CELL COUNT 2.98 mill/uL (4.2-5.4); RED CELL DISTRIBUTION WIDTH 18.6 % (11.6-14.6)
[2020-07-01] MEDS: ZINC SULFATE 220 MG ( 50 ) CAPSULE PO SCH (08:52)
[2020-07-01] MEDS: ASCORBIC ACID 500 MG TABLET PO SCH (08:52)
[2020-07-01] MEDS: FAMOTIDINE 20MG/2ML VIAL IV SCH ×2 (08:52→20:51)
[2020-07-01] MEDS: NYSTATIN POWDER 15GM TOP SCH (09:01)
[2020-07-01] MEDS: CIPROFLOXACIN 0.3% OPHTH SOLN 2.5ML BOTHEYE SCH ×4 (09:02→20:52)
[2020-07-01 09:40] LABS: BG BASE EXCESS 6.1 mmol/L (-2.0-2.0); BG CARBOXYHEMOGLOBIN 0.4 % (0.5-1.5); BG DEOXYHEMOGLOBIN 2.2 % (0.0-5.0); BG FRACTION INSPIRED OXYGEN 40; BG HCO3 ACT 30.1 mmol/L (22.0-26.0); BG METHEMOGLOBIN 0.3 % (0.0-1.5); BG OXYGEN SATURATION 97.8 % (92.0-98.5); BG OXYHEMOGLOBIN 97.1 % (94.0-97.0); BG PCO2 41.2 mmHg (35.0-45.0); BG PH 7.481 (7.350-7.450); BG PO2 101.1 mmHg (75.0-100.0); BG SAMPLE SITE RIGHT RADIAL; BG TIDAL VOLUME(mL) 500 mL; BG TOTAL HEMOGLOBIN 8.6 g/dL (12.0-18.0); BG VENT MODE VENT - A/C; BG VENT RATE 16 set
[2020-07-01] MEDS ORDERED: LIDOCAINE HCL/PF 1% 2ML VIAL ONE (09:41)
[2020-07-01 12:38] LABS: PLATELET ESTIMATE NORMAL
[2020-07-01] MEDS: LORAZEPAM 2MG/ML CPJ IV PRN (13:23)
[2020-07-01] MEDS: ONDANSETRON HCL 4MG/2ML INJ IV PRN (13:23)
[2020-07-01 20:53] LABS: PLATELET ESTIMATE NORMAL
[2020-07-02] VITALS (12 sets, daily range): BP systolic 89–135; BP diastolic 56–82
[2020-07-02] MEDS: LORAZEPAM 2MG/ML CPJ IV PRN (03:28)
[2020-07-02] MEDS: ONDANSETRON HCL 4MG/2ML INJ IV PRN ×3 (03:28→16:54)
[2020-07-02] MEDS: IPRATROPIUM/ALBUTEROL 0.5-3(2.5)MG/3ML NEB HHN SCH ×5 (04:05→20:23)
[2020-07-02] MEDS: BLOOD SUGAR DIAGNOSTIC STRIP TEST SCH ×4 (05:11→23:09)
[2020-07-02] MEDS: CEFTAZIDIME PENTAHYDRATE 2 G in DEXT 5% WATER 100 ML IV SCH ×3 (05:17→23:09)
[2020-07-02] MEDS: INSULIN LISPRO 100 UNITS/ML SUBCUT SCH ×5 (05:29→23:16)
[2020-07-02 07:01] LABS: HEMATOCRIT. 26.1 % (36.0-48.0); HEMOGLOBIN. 8.3 g/dL (12.0-16.0); MEAN CORPUSCULAR VOLUME 88.3 fL (81.0-99.0); MEAN PLATELET VOLUME 7.7 fl (7.4-10.4); PLATELET 355 x1000/uL (130-400); RED BLOOD CELL COUNT 2.95 mill/uL (4.2-5.4); RED CELL DISTRIBUTION WIDTH 18.2 % (11.6-14.6)
[2020-07-02 07:05] LABS: CHLORIDE 98 mEq/L (98-107)
[2020-07-02] MEDS: ASCORBIC ACID 500 MG TABLET PO SCH (09:03)
[2020-07-02] MEDS: FAMOTIDINE 20MG/2ML VIAL IV SCH ×2 (09:03→23:09)
[2020-07-02] MEDS: ZINC SULFATE 220 MG ( 50 ) CAPSULE PO SCH (09:03)
[2020-07-02] MEDS: CIPROFLOXACIN 0.3% OPHTH SOLN 2.5ML BOTHEYE SCH ×4 (09:04→23:09)
[2020-07-02] MEDS: NYSTATIN POWDER 15GM TOP SCH ×2 (09:04→16:55)
[2020-07-02] MEDS: ACETAMINOPHEN 325MG TABLET PO PRN (12:11)
[2020-07-02 23:23] LABS: PLATELET ESTIMATE NORMAL
[2020-07-03] VITALS (12 sets, daily range): BP systolic 89–128; BP diastolic 50–70
[2020-07-03] MEDS: IPRATROPIUM/ALBUTEROL 0.5-3(2.5)MG/3ML NEB HHN SCH ×5 (00:12→19:55)
[2020-07-03] MEDS: CEFTAZIDIME PENTAHYDRATE 2 G in DEXT 5% WATER 100 ML IV SCH ×2 (05:18→13:35)
[2020-07-03] MEDS: BLOOD SUGAR DIAGNOSTIC STRIP TEST SCH ×3 (05:23→17:30)
[2020-07-03] MEDS: INSULIN LISPRO 100 UNITS/ML SUBCUT SCH ×3 (05:24→18:00)
[2020-07-03] MEDS: ZINC SULFATE 220 MG ( 50 ) CAPSULE PO SCH (09:00)
[2020-07-03] MEDS: ASCORBIC ACID 500 MG TABLET PO SCH (09:00)
[2020-07-03] MEDS: CIPROFLOXACIN 0.3% OPHTH SOLN 2.5ML BOTHEYE SCH ×3 (09:06→16:51)
[2020-07-03] MEDS: FAMOTIDINE 20MG/2ML VIAL IV SCH (09:06)
[2020-07-03] MEDS: NYSTATIN POWDER 15GM TOP SCH ×2 (09:07→16:52)
[2020-07-03] MEDS: ONDANSETRON HCL 4MG/2ML INJ IV PRN (10:25)
[2020-07-03] MEDS: LORAZEPAM 2MG/ML CPJ IV PRN (18:34)
== END 2020-07-03 21:45 | DRG 720 ==
LOC: ER 14:50 → EDBEDREQTM 15:51 → EDBEDREQ 15:54 → EDBEDREQSVC 15:54 → EDBEDREQTM 15:54 → EDBEDREQ 15:55 → EDBEDREQTM 16:23 → EDBEDREQSVC 20:20 → EDBEDREQTM 20:20 → ENRESERV 20:42 → 5EST 22:49
PROVIDERS: ADMIT Internal Medicine; ATTEND Internal Medicine
PROC: 5A1955Z Respiratory Ventilation, Greater than 96 Consecutive Hours (ICD-10-PCS; 2020-06-22)
PROC: 0TP98DZ Removal of Intraluminal Device from Ureter, Via Natural or Artificial Opening Endoscopic (ICD-10-PCS; principal; 2020-06-23)
PROC: 0T7D8ZZ Dilation of Urethra, Via Natural or Artificial Opening Endoscopic (ICD-10-PCS; 2020-06-23)
PROC: 30233N1 Transfusion of Nonautologous Red Blood Cells into Peripheral Vein, Percutaneous Approach (ICD-10-PCS; 2020-06-25)
PROC: 5A12012 Performance of Cardiac Output, Single, Manual (ICD-10-PCS; 2020-06-26)
DX: A41.52 Sepsis due to Pseudomonas (principal); E43 Unspecified severe protein-calorie malnutrition; E11.9 Type 2 diabetes mellitus without complications; Z93.0 Tracheostomy status; E87.2 Acidosis; R00.1 Bradycardia, unspecified; F41.9 Anxiety disorder, unspecified; J96.20 Acute and chronic respiratory failure, unspecified whether with hypoxia or hypercapnia; L89.324 Pressure ulcer of left buttock, stage 4; I10 Essential (primary) hypertension; J44.0 Chronic obstructive pulmonary disease with (acute) lower respiratory infection; M19.90 Unspecified osteoarthritis, unspecified site; Z53.29 Procedure and treatment not carried out because of patient's decision for other reasons; M41.9 Scoliosis, unspecified; Z74.01 Bed confinement status; I25.10 Atherosclerotic heart disease of native coronary artery without angina pectoris; J95.851 Ventilator associated pneumonia; I46.9 Cardiac arrest, cause unspecified; K21.9 Gastro-esophageal reflux disease without esophagitis; D50.9 Iron deficiency anemia, unspecified; N12 Tubulo-interstitial nephritis, not specified as acute or chronic; B96.89 Other specified bacterial agents as the cause of diseases classified elsewhere; Y84.8 Other medical procedures as the cause of abnormal reaction of the patient, or of later complication, without mention of misadventure at the time of the procedure; Z20.828 Contact with and (suspected) exposure to other viral communicable diseases; Z87.01 Personal history of pneumonia (recurrent); Z87.440 Personal history of urinary (tract) infections; Z99.11 Dependence on respirator [ventilator] status; Z91.19 Patient's noncompliance with other medical treatment and regimen; Z87.442 Personal history of urinary calculi; Z88.8 Allergy status to other drugs, medicaments and biological substances; Z91.09 Other allergy status, other than to drugs and biological substances; Z79.899 Other long term (current) drug therapy; Z03.818 Encounter for observation for suspected exposure to other biological agents ruled out; Y92.89 Other specified places as the place of occurrence of the external cause; Z68.28 Body mass index [BMI] 28.0-28.9, adult
CPT/HCPCS: 36415; 36600; 71045; 80048; 80053; 80202; 81003; 82270; 82375; 82805; 82962; 83036; 83540; 83550; 83605; 84145; 84484; 85014; 85018; 85025; 86850; 86900; 86920; 87070; 87077; 87186; 87635; 88300; 92610; 93005; 93970; 94002; 94003; 94640; 94667; 96365; 97162; 99285; C9113; J0690; J0692; J0696; J0713; J1650; J1815; J2060; J2270; J2405; J3010; J3370; J3480; J3490; J7030; J7060; J7131; J7608; P9016

== ENCOUNTER 2021-05-17 19:12 | Emergency (ER) | payer MEDICAID ==
[~2021-05-17] VITALS: Ht 172.7 cm; Wt 50.0 kg
[2021-05-17] MEDS ORDERED: HYDROCODONE/APAP 7.5/325MG 1 TAB TABLET PO ONE (19:45)
[2021-05-17 20:46] LABS: BASOPHILS % 0.8 % (0.0-2.0); EOSINOPHILS % 3.3 % (0.0-5.0); LYMPHOCYTES % 10.3 % (20.0-50.0); MEAN CORPUSCULAR HEMOGLOBIN 20.8 pg (28.0-32.0); MEAN CORPUSCULAR VOLUME 65.6 fL (81.0-99.0); MEAN PLATELET VOLUME 6.4 fl (7.4-10.4); MONOCYTES % 8.2 % (2.0-8.0); NEUTROPHILS % 77.4 % (40.0-76.0); PLATELET 861 x1000/uL (130-400); RED BLOOD CELL COUNT 3.11 mill/uL (4.2-5.4); RED CELL DISTRIBUTION WIDTH 18.9 % (11.6-14.6)
[2021-05-17 20:51] LABS: HEMATOCRIT. 20.4 % (36.0-48.0); HEMOGLOBIN. 6.5 g/dL (12.0-16.0)
[2021-05-17 20:54] LABS: INR 1.1; PROTHROMBIN TIME 11.3 sec (9.6-11.0)
[2021-05-17 20:56] LABS: CHLORIDE 99 mEq/L (98-107)
[2021-05-17 21:12] LABS: PLATELET ESTIMATE MARKEDLY INCREASED
[2021-05-17 21:18] LABS: COLOR URINE YELLOW (YELLOW); KETONES URINE NEGATIVE (NEGATIVE); LEUKOCYTE ESTERASE URINE 3+ (NEGATIVE); NITRITE URINE POSITIVE (NEGATIVE); OCCULT BLOOD URINE 2+ (NEGATIVE); PH URINE 7.5 (4.5-8.0); PROTEIN URINE 1+ (NEGATIVE); UROBILINOGEN URINE 0.2 E.U./dL (0.2-1.0)
[2021-05-17 21:25] LABS: CLARITY URINE HAZY (CLEAR)
[2021-05-17] MEDS ORDERED: KEFLL21 MT (23:55)
[2021-05-18] MEDS ORDERED: CEFTRIAXONE 1 G PREMIX 50 ML IV ONE (00:15)
[2021-05-18] MEDS ORDERED: HYDROCODONE/ACETAMINOPHEN 10/325MG TABLET PO ONE (05:00)
[2021-05-18 09:14] VITALS: BP 135/72
== END 2021-05-18 09:42 ==
LOC: ER 19:12
DX: D50.0 Iron deficiency anemia secondary to blood loss (chronic) (principal); N39.0 Urinary tract infection, site not specified; L89.159 Pressure ulcer of sacral region, unspecified stage; I11.9 Hypertensive heart disease without heart failure; J44.9 Chronic obstructive pulmonary disease, unspecified; K21.9 Gastro-esophageal reflux disease without esophagitis; R60.0 Localized edema; G62.9 Polyneuropathy, unspecified; Z99.11 Dependence on respirator [ventilator] status; Z74.01 Bed confinement status; Z87.01 Personal history of pneumonia (recurrent); Z79.899 Other long term (current) drug therapy
CPT/HCPCS: 36415; 80053; 81003; 83880; 84484; 85025; 85610; 86850; 86900; 86901; 86920; 87077; 87086; 87186; 93005; 96365; 96366; 99285; J0696; J7040; Z7610; 94002; 94003; P9016

== ENCOUNTER 2022-06-07 05:05 | Inpatient (IN) | payer MEDICAID ==
[~2022-06-07] VITALS: Ht 167.6 cm; Wt 65.3 kg
[~2022-06-07 05:05] MED LIST changes: +KEFLL21 MT
[2022-06-07 05:52] LABS: CHLORIDE 94 mEq/L (98-107)
[2022-06-07 05:59] LABS: INR 1.1; PROTHROMBIN TIME 11.4 sec (9.6-11.0)
[2022-06-07 06:01] LABS: HEMATOCRIT. 34.5 % (36.0-48.0); HEMOGLOBIN. 10.7 g/dL (12.0-16.0); MEAN CORPUSCULAR HEMOGLOBIN 24.2 pg (28.0-32.0); MEAN CORPUSCULAR VOLUME 77.7 fL (81.0-99.0); MEAN PLATELET VOLUME 7.4 fl (7.4-10.4); PLATELET 535 x1000/uL (130-400); RED BLOOD CELL COUNT 4.44 mill/uL (4.2-5.4); RED CELL DISTRIBUTION WIDTH 17.8 % (11.6-14.6)
[2022-06-07] MEDS ORDERED: SODIUM CHLORIDE 0.9% 1,000 ML IV ONE (06:30)
[2022-06-07] MEDS ORDERED: VANCOMYCIN 1G PREMIX 200 ML IV ONE (06:30)
[2022-06-07] MEDS ORDERED: VANCOMYCIN 1GM PMX (XELLIA) 200 ML IV NR (06:45)
[2022-06-07 07:18] LABS: PLATELET ESTIMATE INCREASED
[2022-06-07 07:45] LABS: CLARITY URINE CLOUDY (CLEAR); COLOR URINE ORANGE (YELLOW); KETONES URINE NEGATIVE (NEGATIVE); LEUKOCYTE ESTERASE URINE 3+ (NEGATIVE); NITRITE URINE NEGATIVE (NEGATIVE); OCCULT BLOOD URINE 3+ (NEGATIVE); PH URINE 8.5 (4.5-8.0); PROTEIN URINE 3+ (NEGATIVE); SPECIFIC GRAVITY URINE 1.012 (1.005-1.030); UROBILINOGEN URINE 0.2 E.U./dL (0.2-1.0)
[2022-06-07 11:01] LABS: BG BASE EXCESS -1.9 mmol/L (-2.0-2.0); BG CARBOXYHEMOGLOBIN 0.1 % (0.5-1.5); BG DEOXYHEMOGLOBIN 3.6 % (0.0-5.0); BG FRACTION INSPIRED OXYGEN 60; BG HCO3 ACT 21.4 mmol/L (22.0-26.0); BG METHEMOGLOBIN 0.2 % (0.0-1.5); BG OXYGEN SATURATION 96.4 % (92.0-98.5); BG OXYHEMOGLOBIN 96.1 % (94.0-97.0); BG PCO2 31.9 mmHg (35.0-45.0); BG PH 7.445 (7.350-7.450); BG PO2 85.2 mmHg (75.0-100.0); BG SAMPLE SITE RIGHT RADIAL; BG TOTAL HEMOGLOBIN 11.3 g/dL (12.0-18.0); BG VENT MODE VENT - AC
[2022-06-07] MEDS ORDERED: LORAZEPAM 0.5MG TABLET PO PRN (11:45)
[2022-06-07] MEDS ORDERED: SODIUM CHLORIDE 0.9% 1,000 ML IV SCH (11:45)
[2022-06-07] MEDS ORDERED: DOCUSATE SODIUM 100MG CAPSULE PO PRN (11:45)
[2022-06-07] MEDS ORDERED: ONDANSETRON HCL 4MG/2ML INJ IV PRN (11:45)
[2022-06-07] MEDS ORDERED: PIPERACILLIN/TAZ 3.375G PREMIX 50 ML IV SCH (11:45)
[2022-06-07] MEDS ORDERED: VANCOMYCIN 1G PREMIX 200 ML IV SCH ×2 (11:45→20:00)
[2022-06-07] MEDS ORDERED: ACETAMINOPHEN 325MG TABLET PO PRN (11:45)
[2022-06-07] MEDS ORDERED: PIPERACILLIN/TAZOBACTAM 3.375G in DEXT 5% WATER 50ML IV SCH (12:00)
[2022-06-07] MEDS: ENOXAPARIN 40MG/0.4ML SYR SUBCUT SCH (12:00)
[2022-06-07 12:45] VITALS: BP 132/70
[2022-06-07] MEDS ORDERED: SODIUM CHLORIDE 3% FOR INH 4ML UD NEB INH SCH ×2 (12:45→14:30)
[2022-06-07 14:00] VITALS: BP 117/71
[2022-06-07] MEDS: ACETYLCYSTEINE 100MG/ML 10% VIAL 4ML INH SCH (14:00)
[2022-06-07 16:00] VITALS: BP 117/79
[2022-06-07] MEDS: IPRATROPIUM/ALBUTEROL 0.5-3(2.5)MG/3ML NEB HHN SCH ×2 (16:00→20:57)
[2022-06-07] MEDS ORDERED: DEXTROSE 50% WATER 50ML SYRINGE IV PRN (16:15)
[2022-06-07] MEDS: BLOOD SUGAR DIAGNOSTIC STRIP TEST SCH ×2 (17:30→21:25)
[2022-06-07 18:00] VITALS: BP 119/70
[2022-06-07] MEDS: INSULIN LISPRO 100 UNITS/ML SUBCUT SCH ×2 (18:00→21:40)
[2022-06-07 20:00] VITALS: BP 135/83
[2022-06-07] MEDS: SODIUM CHLORIDE 3% FOR INH 4ML UD NEB INH SCH (20:57)
[2022-06-07] MEDS: VANCOMYCIN 750MG PREMIX 150 ML IV SCH (21:24)
[2022-06-07] MEDS: HYDROMORPHONE HCL/PF 2MG/ML CPJ IV PRN (21:42)
[2022-06-07 22:00] VITALS: BP 108/64
[2022-06-07] MEDS: PIPERACILLIN/TAZOBACTAM 3.375G in DEXT 5% WATER 50ML IV SCH (23:08)
[2022-06-08] VITALS (12 sets, daily range): BP systolic 106–150; BP diastolic 57–97
[2022-06-08] MEDS: ACETYLCYSTEINE 100MG/ML 10% VIAL 4ML INH SCH ×3 (00:26→16:13)
[2022-06-08] MEDS: IPRATROPIUM/ALBUTEROL 0.5-3(2.5)MG/3ML NEB HHN SCH ×6 (00:26→20:35)
[2022-06-08] MEDS: HYDROMORPHONE HCL/PF 2MG/ML CPJ IV PRN ×2 (01:27→22:32)
[2022-06-08] MEDS: SODIUM CHLORIDE 3% FOR INH 4ML UD NEB INH SCH ×4 (05:01→20:37)
[2022-06-08] MEDS: PIPERACILLIN/TAZOBACTAM 3.375G in DEXT 5% WATER 50ML IV SCH ×3 (05:16→21:02)
[2022-06-08] MEDS: BLOOD SUGAR DIAGNOSTIC STRIP TEST SCH ×4 (07:30→21:02)
[2022-06-08 07:33] LABS: HEMATOCRIT. 29.7 % (36.0-48.0); HEMOGLOBIN. 9.2 g/dL (12.0-16.0); MEAN CORPUSCULAR HEMOGLOBIN 23.9 pg (28.0-32.0); MEAN CORPUSCULAR VOLUME 77.1 fL (81.0-99.0); MEAN PLATELET VOLUME 7.2 fl (7.4-10.4); PLATELET 496 x1000/uL (130-400); RED BLOOD CELL COUNT 3.85 mill/uL (4.2-5.4); RED CELL DISTRIBUTION WIDTH 17.7 % (11.6-14.6)
[2022-06-08 07:42] LABS: CHLORIDE 101 mEq/L (98-107)
[2022-06-08] MEDS: INSULIN LISPRO 100 UNITS/ML SUBCUT SCH ×4 (08:00→21:00)
[2022-06-08] MEDS: VANCOMYCIN 750MG PREMIX 150 ML IV SCH ×2 (09:40→21:02)
[2022-06-08] MEDS: ENOXAPARIN 40MG/0.4ML SYR SUBCUT SCH (09:41)
[2022-06-08 15:10] LABS: PLATELET ESTIMATE INCREASED
[2022-06-08] MEDS: SODIUM CHLORIDE 0.9% 1,000 ML IV SCH (17:49)
[2022-06-08] MEDS: POTASSIUM CHLORIDE 20MEQ TABLET SR PO SCH (17:49)
[2022-06-09] VITALS (11 sets, daily range): BP systolic 84–148; BP diastolic 52–91
[2022-06-09] MEDS: ACETYLCYSTEINE 100MG/ML 10% VIAL 4ML INH SCH ×3 (01:19→16:11)
[2022-06-09] MEDS: SODIUM CHLORIDE 3% FOR INH 4ML UD NEB INH SCH ×4 (01:19→20:36)
[2022-06-09] MEDS: IPRATROPIUM/ALBUTEROL 0.5-3(2.5)MG/3ML NEB HHN SCH ×6 (01:19→20:36)
[2022-06-09] MEDS: HYDROMORPHONE HCL/PF 2MG/ML CPJ IV PRN ×4 (04:04→20:45)
[2022-06-09] MEDS: PIPERACILLIN/TAZOBACTAM 3.375G in DEXT 5% WATER 50ML IV SCH ×3 (05:31→22:54)
[2022-06-09 06:58] LABS: BASOPHILS % 0.4 % (0.0-2.0); EOSINOPHILS % 4.3 % (0.0-5.0); HEMATOCRIT. 28.8 % (36.0-48.0); HEMOGLOBIN. 9.2 g/dL (12.0-16.0); LYMPHOCYTES % 11.5 % (20.0-50.0); MEAN CORPUSCULAR HEMOGLOBIN 24.6 pg (28.0-32.0); MEAN CORPUSCULAR VOLUME 77.1 fL (81.0-99.0); MEAN PLATELET VOLUME 7.1 fl (7.4-10.4); MONOCYTES % 6.5 % (2.0-8.0); NEUTROPHILS % 77.3 % (40.0-76.0); PLATELET 518 x1000/uL (130-400); RED BLOOD CELL COUNT 3.74 mill/uL (4.2-5.4); RED CELL DISTRIBUTION WIDTH 17.8 % (11.6-14.6)
[2022-06-09 07:23] LABS: PHOSPHORUS 3.2 mg/dL (2.5-4.9)
[2022-06-09] MEDS: INSULIN LISPRO 100 UNITS/ML SUBCUT SCH ×4 (08:00→20:47)
[2022-06-09] MEDS: BLOOD SUGAR DIAGNOSTIC STRIP TEST SCH ×4 (08:32→20:47)
[2022-06-09] MEDS: POTASSIUM CHLORIDE 20MEQ TABLET SR PO SCH ×2 (08:37→17:19)
[2022-06-09] MEDS: ENOXAPARIN 40MG/0.4ML SYR SUBCUT SCH ×2 (08:37→08:45)
[2022-06-09] MEDS: VANCOMYCIN 750MG PREMIX 150 ML IV SCH (10:17)
[2022-06-09] MEDS ORDERED: NALOXONE HCL 0.4MG/ML VIAL IV PRN (11:30)
[2022-06-10] VITALS (12 sets, daily range): BP systolic 115–174; BP diastolic 60–96
[2022-06-10] MEDS: SODIUM CHLORIDE 3% FOR INH 4ML UD NEB INH SCH (01:06)
[2022-06-10] MEDS: ACETYLCYSTEINE 100MG/ML 10% VIAL 4ML INH SCH ×3 (01:06→16:30)
[2022-06-10] MEDS: IPRATROPIUM/ALBUTEROL 0.5-3(2.5)MG/3ML NEB HHN SCH ×4 (01:06→12:19)
[2022-06-10] MEDS: HYDROMORPHONE HCL/PF 2MG/ML CPJ IV PRN ×5 (02:08→19:48)
[2022-06-10] MEDS: PIPERACILLIN/TAZOBACTAM 3.375G in DEXT 5% WATER 50ML IV SCH ×3 (05:46→21:07)
[2022-06-10] MEDS: SODIUM CHLORIDE 0.9% 1,000 ML IV SCH (06:00)
[2022-06-10] MEDS: INSULIN LISPRO 100 UNITS/ML SUBCUT SCH ×4 (08:00→21:00)
[2022-06-10] MEDS: BLOOD SUGAR DIAGNOSTIC STRIP TEST SCH ×4 (08:03→21:21)
[2022-06-10] MEDS: ENOXAPARIN 40MG/0.4ML SYR SUBCUT SCH (08:04)
[2022-06-10] MEDS: POTASSIUM CHLORIDE 20MEQ TABLET SR PO SCH ×2 (08:06→18:12)
[2022-06-10 09:05] LABS: BASOPHILS % 0.6 % (0.0-2.0); EOSINOPHILS % 3.3 % (0.0-5.0); HEMATOCRIT. 26.8 % (36.0-48.0); HEMOGLOBIN. 8.2 g/dL (12.0-16.0); LYMPHOCYTES % 7.7 % (20.0-50.0); MEAN CORPUSCULAR VOLUME 78.4 fL (81.0-99.0); MEAN PLATELET VOLUME 7.2 fl (7.4-10.4); MONOCYTES % 7.1 % (2.0-8.0); NEUTROPHILS % 81.3 % (40.0-76.0); PLATELET 476 x1000/uL (130-400); RED BLOOD CELL COUNT 3.42 mill/uL (4.2-5.4); RED CELL DISTRIBUTION WIDTH 18.2 % (11.6-14.6)
[2022-06-10] MEDS: GABAPENTIN 100MG CAPSULE PO SCH ×2 (14:42→21:07)
[2022-06-10] MEDS ORDERED: ALBUTEROL (0.083%) 2.5MG/3ML NEB ONE (16:25)
[2022-06-10] MEDS: ALBUTEROL (0.083%) 2.5MG/3ML NEB HHN SCH ×2 (16:30→20:25)
[2022-06-11] VITALS (12 sets, daily range): BP systolic 110–195; BP diastolic 62–106
[2022-06-11] MEDS: ACETYLCYSTEINE 100MG/ML 10% VIAL 4ML INH SCH ×3 (00:27→15:11)
[2022-06-11] MEDS: ALBUTEROL (0.083%) 2.5MG/3ML NEB HHN SCH ×6 (00:28→20:41)
[2022-06-11] MEDS: HYDROMORPHONE HCL/PF 2MG/ML CPJ IV PRN ×5 (00:28→21:11)
[2022-06-11] MEDS: SODIUM CHLORIDE 0.9% 1,000 ML IV SCH ×2 (03:07→21:47)
[2022-06-11] MEDS: PIPERACILLIN/TAZOBACTAM 3.375G in DEXT 5% WATER 50ML IV SCH ×3 (05:50→21:27)
[2022-06-11] MEDS: GABAPENTIN 100MG CAPSULE PO SCH ×2 (05:51→13:42)
[2022-06-11] MEDS: INSULIN LISPRO 100 UNITS/ML SUBCUT SCH ×4 (08:00→21:22)
[2022-06-11] MEDS: BLOOD SUGAR DIAGNOSTIC STRIP TEST SCH ×4 (08:01→21:19)
[2022-06-11] MEDS: ENOXAPARIN 40MG/0.4ML SYR SUBCUT SCH (08:02)
[2022-06-11] MEDS: POTASSIUM CHLORIDE 20MEQ TABLET SR PO SCH ×2 (08:02→17:00)
[2022-06-11 08:05] LABS: BASOPHILS % 0.4 % (0.0-2.0); EOSINOPHILS % 4.4 % (0.0-5.0); HEMATOCRIT. 24.4 % (36.0-48.0); HEMOGLOBIN. 7.7 g/dL (12.0-16.0); LYMPHOCYTES % 10.1 % (20.0-50.0); MEAN CORPUSCULAR HEMOGLOBIN 24.5 pg (28.0-32.0); MEAN CORPUSCULAR VOLUME 78.1 fL (81.0-99.0); MEAN PLATELET VOLUME 7.1 fl (7.4-10.4); MONOCYTES % 7.8 % (2.0-8.0); NEUTROPHILS % 77.3 % (40.0-76.0); PLATELET 392 x1000/uL (130-400); RED BLOOD CELL COUNT 3.13 mill/uL (4.2-5.4); RED CELL DISTRIBUTION WIDTH 18.1 % (11.6-14.6)
[2022-06-11 08:35] LABS: CHLORIDE 111 mEq/L (98-107)
[2022-06-11 08:43] LABS: TOTAL IRON BINDING CAPACITY 249 ug/dL (250-450)
[2022-06-11] MEDS: IRON SUCROSE COMPLEX 100 MG/5 ML ML IV SCH (15:38)
[2022-06-11] MEDS: PANTOPRAZOLE SODIUM 40 MG/VIAL IV SCH (15:39)
[2022-06-11] MEDS: CLONIDINE 0.1MG TABLET PO PRN (17:56)
[2022-06-11 18:00] LABS: BG BASE EXCESS -3.1 mmol/L (-2.0-2.0); BG CARBOXYHEMOGLOBIN 0.2 % (0.5-1.5); BG DEOXYHEMOGLOBIN 1.7 % (0.0-5.0); BG FRACTION INSPIRED OXYGEN 50; BG HCO3 ACT 21.9 mmol/L (22.0-26.0); BG METHEMOGLOBIN 0.2 % (0.0-1.5); BG OXYGEN SATURATION 98.3 % (92.0-98.5); BG OXYHEMOGLOBIN 97.9 % (94.0-97.0); BG PH 7.367 (7.350-7.450); BG PO2 117.8 mmHg (75.0-100.0); BG SAMPLE SITE LEFT RADIAL; BG TOTAL HEMOGLOBIN 8.5 g/dL (12.0-18.0); BG VENT MODE VENT - SIMV
[2022-06-11] MEDS: POLYVINYL ALCOHOL OPHTH DROPS 15ML BOTHEYE PRN (18:10)
[2022-06-11] MEDS: GABAPENTIN 300MG CAPSULE PO SCH (21:50)
[2022-06-12] VITALS (12 sets, daily range): BP systolic 97–163; BP diastolic 51–95
[2022-06-12] MEDS: ACETYLCYSTEINE 100MG/ML 10% VIAL 4ML INH SCH ×2 (00:34→08:22)
[2022-06-12] MEDS: ALBUTEROL (0.083%) 2.5MG/3ML NEB HHN SCH ×5 (00:34→16:08)
[2022-06-12] MEDS: HYDROMORPHONE HCL/PF 2MG/ML CPJ IV PRN ×6 (02:56→23:32)
[2022-06-12] MEDS: GABAPENTIN 300MG CAPSULE PO SCH ×3 (05:20→20:13)
[2022-06-12] MEDS: PIPERACILLIN/TAZOBACTAM 3.375G in DEXT 5% WATER 50ML IV SCH ×3 (05:20→21:39)
[2022-06-12 07:19] LABS: BASOPHILS % 0.5 % (0.0-2.0); HEMATOCRIT. 23.2 % (36.0-48.0); HEMOGLOBIN. 7.2 g/dL (12.0-16.0); LYMPHOCYTES % 11.7 % (20.0-50.0); MEAN CORPUSCULAR HEMOGLOBIN 24.3 pg (28.0-32.0); MEAN CORPUSCULAR VOLUME 78.6 fL (81.0-99.0); MEAN PLATELET VOLUME 7.2 fl (7.4-10.4); NEUTROPHILS % 76.8 % (40.0-76.0); PLATELET 403 x1000/uL (130-400); RED BLOOD CELL COUNT 2.95 mill/uL (4.2-5.4); RED CELL DISTRIBUTION WIDTH 18.7 % (11.6-14.6)
[2022-06-12] MEDS: BLOOD SUGAR DIAGNOSTIC STRIP TEST SCH ×4 (07:37→20:21)
[2022-06-12] MEDS: INSULIN LISPRO 100 UNITS/ML SUBCUT SCH ×4 (07:37→21:00)
[2022-06-12] MEDS: POLYVINYL ALCOHOL OPHTH DROPS 15ML BOTHEYE PRN ×2 (07:38→17:41)
[2022-06-12] MEDS: SODIUM CHLORIDE 3% FOR INH 4ML UD NEB INH SCH ×2 (08:22→18:00)
[2022-06-12] MEDS: ENOXAPARIN 40MG/0.4ML SYR SUBCUT SCH (09:00)
[2022-06-12] MEDS: LEVOFLOXACIN 500MG TABLET PO SCH (09:45)
[2022-06-12] MEDS: POTASSIUM CHLORIDE 20MEQ TABLET SR PO SCH ×2 (09:45→17:41)
[2022-06-12] MEDS: PANTOPRAZOLE SODIUM 40 MG/VIAL IV SCH (09:45)
[2022-06-12] MEDS: IRON SUCROSE COMPLEX 100 MG/5 ML ML IV SCH (13:46)
[2022-06-12] MEDS: SODIUM CHLORIDE 0.9% 1,000 ML IV SCH (18:30)
[2022-06-13] VITALS (12 sets, daily range): BP systolic 120–182; BP diastolic 62–88
[2022-06-13] MEDS: ALBUTEROL (0.083%) 2.5MG/3ML NEB HHN SCH ×6 (00:19→20:28)
[2022-06-13] MEDS: GABAPENTIN 300MG CAPSULE PO SCH ×3 (05:19→20:39)
[2022-06-13] MEDS: POLYVINYL ALCOHOL OPHTH DROPS 15ML BOTHEYE PRN (05:19)
[2022-06-13] MEDS: HYDROMORPHONE HCL/PF 2MG/ML CPJ IV PRN ×4 (05:19→20:38)
[2022-06-13 06:43] LABS: HEMATOCRIT 24.2 % (36.0-48.0); HEMOGLOBIN 7.5 g/dL (12.0-16.0); MEAN CORPUSCULAR HEMOGLOBIN 24.3 pg (28.0-32.0); MEAN CORPUSCULAR VOLUME 78.1 fL (81.0-99.0); PLATELET 426 x1000/uL (130-400); RED BLOOD CELL COUNT 3.09 mill/uL (4.2-5.4); RED CELL DISTRIBUTION WIDTH 18.2 % (11.6-14.6)
[2022-06-13] MEDS: BLOOD SUGAR DIAGNOSTIC STRIP TEST SCH ×4 (07:39→20:39)
[2022-06-13] MEDS: INSULIN LISPRO 100 UNITS/ML SUBCUT SCH ×4 (07:47→20:50)
[2022-06-13] MEDS: POTASSIUM CHLORIDE 20MEQ TABLET SR PO SCH ×2 (09:42→17:53)
[2022-06-13] MEDS: LEVOFLOXACIN 500MG TABLET PO SCH (09:42)
[2022-06-13] MEDS: PANTOPRAZOLE SODIUM 40 MG/VIAL IV SCH (09:42)
[2022-06-13] MEDS: IRON SUCROSE COMPLEX 100 MG/5 ML ML IV SCH (13:51)
[2022-06-13] MEDS: SODIUM CHLORIDE 3% FOR INH 4ML UD NEB INH SCH ×2 (18:00)
[2022-06-14] VITALS (12 sets, daily range): BP systolic 108–179; BP diastolic 55–92
[2022-06-14] MEDS: ALBUTEROL (0.083%) 2.5MG/3ML NEB HHN SCH ×6 (00:16→19:55)
[2022-06-14] MEDS: SODIUM CHLORIDE 3% FOR INH 4ML UD NEB INH SCH ×4 (00:16→19:55)
[2022-06-14] MEDS: HYDROMORPHONE HCL/PF 2MG/ML CPJ IV PRN ×6 (00:43→23:37)
[2022-06-14] MEDS: POLYVINYL ALCOHOL OPHTH DROPS 15ML BOTHEYE PRN ×3 (05:06→20:08)
[2022-06-14] MEDS: GABAPENTIN 300MG CAPSULE PO SCH ×3 (05:07→20:59)
[2022-06-14 06:50] LABS: BASOPHILS % 0.6 % (0.0-2.0); EOSINOPHILS % 3.7 % (0.0-5.0); HEMATOCRIT. 25.9 % (36.0-48.0); LYMPHOCYTES % 11.3 % (20.0-50.0); MEAN CORPUSCULAR HEMOGLOBIN 24.2 pg (28.0-32.0); MEAN CORPUSCULAR VOLUME 78.4 fL (81.0-99.0); MONOCYTES % 7.2 % (2.0-8.0); NEUTROPHILS % 77.2 % (40.0-76.0); PLATELET 420 x1000/uL (130-400); RED BLOOD CELL COUNT 3.31 mill/uL (4.2-5.4); RED CELL DISTRIBUTION WIDTH 18.7 % (11.6-14.6)
[2022-06-14 07:07] LABS: CHLORIDE 108 mEq/L (98-107)
[2022-06-14] MEDS: BLOOD SUGAR DIAGNOSTIC STRIP TEST SCH ×4 (07:30→19:55)
[2022-06-14] MEDS: POTASSIUM CHLORIDE 20MEQ TABLET SR PO SCH ×2 (07:56→16:09)
[2022-06-14] MEDS: PANTOPRAZOLE SODIUM 40 MG/VIAL IV SCH (07:56)
[2022-06-14] MEDS: LEVOFLOXACIN 500MG TABLET PO SCH (07:56)
[2022-06-14] MEDS: INSULIN LISPRO 100 UNITS/ML SUBCUT SCH ×4 (08:00→20:08)
[2022-06-14] MEDS ORDERED: MENTHOL/LANOLIN/CALAMINE/ZN OX OINT 71GM TOP PRN (12:15)
[2022-06-14] MEDS: IRON SUCROSE COMPLEX 100 MG/5 ML ML IV SCH (13:20)
[2022-06-14] MEDS: CLONIDINE 0.1MG TABLET PO PRN (15:48)
[2022-06-14] MEDS: HYDROCORTISONE 2.5% OINT 20GM TOP SCH (19:55)
[2022-06-15] VITALS (12 sets, daily range): BP systolic 114–168; BP diastolic 58–92
[2022-06-15] MEDS: SODIUM CHLORIDE 3% FOR INH 4ML UD NEB INH SCH (00:23)
[2022-06-15] MEDS: ALBUTEROL (0.083%) 2.5MG/3ML NEB HHN SCH ×6 (00:23→20:01)
[2022-06-15] MEDS: HYDROMORPHONE HCL/PF 2MG/ML CPJ IV PRN ×6 (03:21→21:22)
[2022-06-15] MEDS: GABAPENTIN 300MG CAPSULE PO SCH ×3 (05:16→21:22)
[2022-06-15 06:57] LABS: BASOPHILS % 0.7 % (0.0-2.0); EOSINOPHILS % 3.5 % (0.0-5.0); HEMATOCRIT. 26.8 % (36.0-48.0); HEMOGLOBIN. 8.3 g/dL (12.0-16.0); LYMPHOCYTES % 10.6 % (20.0-50.0); MEAN CORPUSCULAR VOLUME 77.9 fL (81.0-99.0); MEAN PLATELET VOLUME 7.1 fl (7.4-10.4); MONOCYTES % 7.4 % (2.0-8.0); NEUTROPHILS % 77.8 % (40.0-76.0); PLATELET 414 x1000/uL (130-400); RED BLOOD CELL COUNT 3.44 mill/uL (4.2-5.4)
[2022-06-15] MEDS: BLOOD SUGAR DIAGNOSTIC STRIP TEST SCH ×2 (07:30→11:58)
[2022-06-15] MEDS: INSULIN LISPRO 100 UNITS/ML SUBCUT SCH ×2 (08:00→12:18)
[2022-06-15] MEDS: HYDROCORTISONE 2.5% OINT 20GM TOP SCH ×2 (08:30→21:21)
[2022-06-15] MEDS: POTASSIUM CHLORIDE 20MEQ TABLET SR PO SCH (08:30)
[2022-06-15] MEDS: LEVOFLOXACIN 500MG TABLET PO SCH (08:30)
[2022-06-15] MEDS: FAMOTIDINE 20MG TABLET PO SCH ×2 (09:00→17:03)
[2022-06-15] MEDS: IRON SUCROSE COMPLEX 100 MG/5 ML ML IV SCH (13:44)
[2022-06-15] MEDS: POLYVINYL ALCOHOL OPHTH DROPS 15ML BOTHEYE PRN (21:22)
[2022-06-16] VITALS (7 sets, daily range): BP systolic 104–160; BP diastolic 56–84
[2022-06-16] MEDS: ALBUTEROL (0.083%) 2.5MG/3ML NEB HHN SCH ×3 (00:20→08:10)
[2022-06-16] MEDS: GABAPENTIN 300MG CAPSULE PO SCH (05:16)
[2022-06-16] MEDS: HYDROMORPHONE HCL/PF 2MG/ML CPJ IV PRN ×2 (05:17→09:04)
[2022-06-16] MEDS: SODIUM CHLORIDE 3% FOR INH 4ML UD NEB INH SCH (08:11)
[2022-06-16] MEDS ORDERED: POTASSIUM CHLORIDE 20MEQ TABLET SR PO SCH (09:00)
[2022-06-16] MEDS: LEVOFLOXACIN 500MG TABLET PO SCH (09:02)
[2022-06-16] MEDS: FAMOTIDINE 20MG TABLET PO SCH (09:02)
[2022-06-16] MEDS: HYDROCORTISONE 2.5% OINT 20GM TOP SCH (09:03)
== END 2022-06-16 17:13 | DRG 720 ==
LOC: ER 05:05 → EDBEDREQ 07:33 → 5EST 09:45 → EDBEDREQ 09:51 → EDBEDREQTM 09:51 → EDBEDREQSVC 09:51 → ENRESERV 11:50
PROVIDERS: ADMIT Internal Medicine; ATTEND Internal Medicine
PROC: 5A1955Z Respiratory Ventilation, Greater than 96 Consecutive Hours (ICD-10-PCS; principal; 2022-06-07)
DX: A41.89 Other specified sepsis (principal); J96.21 Acute and chronic respiratory failure with hypoxia; J95.851 Ventilator associated pneumonia; E46 Unspecified protein-calorie malnutrition; E87.1 Hypo-osmolality and hyponatremia; J39.8 Other specified diseases of upper respiratory tract; D63.8 Anemia in other chronic diseases classified elsewhere; D53.9 Nutritional anemia, unspecified; E11.9 Type 2 diabetes mellitus without complications; Z93.0 Tracheostomy status; Z99.11 Dependence on respirator [ventilator] status; J44.1 Chronic obstructive pulmonary disease with (acute) exacerbation; J44.0 Chronic obstructive pulmonary disease with (acute) lower respiratory infection; Z20.822 Contact with and (suspected) exposure to COVID-19; L89.319 Pressure ulcer of right buttock, unspecified stage; J90 Pleural effusion, not elsewhere classified; N39.0 Urinary tract infection, site not specified; I10 Essential (primary) hypertension; L89.899 Pressure ulcer of other site, unspecified stage; G89.29 Other chronic pain; J98.19 Other pulmonary collapse; L30.9 Dermatitis, unspecified; M41.9 Scoliosis, unspecified; Y84.8 Other medical procedures as the cause of abnormal reaction of the patient, or of later complication, without mention of misadventure at the time of the procedure; K21.9 Gastro-esophageal reflux disease without esophagitis; M19.90 Unspecified osteoarthritis, unspecified site; N28.9 Disorder of kidney and ureter, unspecified; R79.89 Other specified abnormal findings of blood chemistry; R21 Rash and other nonspecific skin eruption; Z91.19 Patient's noncompliance with other medical treatment and regimen; Z68.23 Body mass index [BMI] 23.0-23.9, adult; Z86.73 Personal history of transient ischemic attack (TIA), and cerebral infarction without residual deficits; Z87.01 Personal history of pneumonia (recurrent); Z79.891 Long term (current) use of opiate analgesic; Z88.1 Allergy status to other antibiotic agents; Z88.8 Allergy status to other drugs, medicaments and biological substances; R60.0 Localized edema
CPT/HCPCS: 36415; 36600; 71045; 80048; 80053; 80202; 81003; 82375; 82805; 82962; 83036; 83540; 83550; 83605; 83735; 84100; 84145; 85025; 85027; 87070; 87077; 87186; 87426; 87804; 93005; 94002; 94003; 94640; 99291; C9113; C9803; J1170; J1650; J1815; J2543; J3370; J7030; J7060; J7608

== ENCOUNTER 2022-07-11 03:19 | Inpatient (IN) | payer MEDICAID ==
[2022-07-11] VITALS (53 sets, daily range): BP systolic 50–215; BP diastolic 26–126
[~2022-07-11] VITALS: Ht 152.4 cm; Wt 78.5 kg
[2022-07-11] MEDS ORDERED: MIDAZOLAM HCL 2 MG/2 ML VIAL IV ONE (04:00)
[2022-07-11] MEDS ORDERED: PIPERACILLIN/TAZ 3.375G PREMIX 50 ML IV ONE (04:00)
[2022-07-11] MEDS ORDERED: VANCOMYCIN 1G PREMIX 200 ML IV ONE (04:00)
[2022-07-11 05:09] LABS: CHLORIDE 103 mEq/L (98-107)
[2022-07-11 05:11] LABS: BASOPHILS % 0.5 % (0.0-2.0); EOSINOPHILS % 1.7 % (0.0-5.0); HEMATOCRIT. 33.6 % (36.0-48.0); HEMOGLOBIN. 10.2 g/dL (12.0-16.0); LYMPHOCYTES % 11.8 % (20.0-50.0); MEAN CORPUSCULAR HEMOGLOBIN 24.7 pg (28.0-32.0); MEAN CORPUSCULAR VOLUME 81.7 fL (81.0-99.0); MEAN PLATELET VOLUME 7.7 fl (7.4-10.4); MONOCYTES % 5.9 % (2.0-8.0); NEUTROPHILS % 80.1 % (40.0-76.0); PLATELET 550 x1000/uL (130-400); RED BLOOD CELL COUNT 4.11 mill/uL (4.2-5.4); RED CELL DISTRIBUTION WIDTH 19.1 % (11.6-14.6)
[2022-07-11 05:22] LABS: BG BASE EXCESS -8.1 mmol/L (-2.0-2.0); BG CARBOXYHEMOGLOBIN 0.3 % (0.5-1.5); BG DEOXYHEMOGLOBIN 32.2 % (0.0-5.0); BG FRACTION INSPIRED OXYGEN 100; BG HCO3 ACT 21.5 mmol/L (22.0-26.0); BG METHEMOGLOBIN 0.3 % (0.0-1.5); BG OXYGEN SATURATION 67.6 % (92.0-98.5); BG OXYHEMOGLOBIN 67.2 % (94.0-97.0); BG PCO2 64.8 mmHg (35.0-45.0); BG PH 7.138 (7.350-7.450); BG PO2 46.5 mmHg (75.0-100.0); BG SAMPLE SITE LEFT RADIAL; BG TOTAL HEMOGLOBIN 11.4 g/dL (12.0-18.0); BG VENT MODE VENT - AC
[2022-07-11] MEDS ORDERED: FENTANYL 2500MCG/250ML PMX 250 ML IV ONE (05:30)
[2022-07-11] MEDS ORDERED: VECURONIUM BROMIDE 10 MG/VIAL IV ONE (05:30)
[2022-07-11] MEDS ORDERED: MIDAZOLAM HCL 50 MG in DEXTROSE 5% WATER 40 ML IV ONE (05:30)
[2022-07-11] MEDS ORDERED: FENTANYL 2500MCG/250ML PMX 250 ML IV NR (05:45)
[2022-07-11] MEDS ORDERED: MIDAZOLAM 100MG/100ML PMX 100 ML IV NR (05:45)
[2022-07-11] MEDS ORDERED: DOPAMINE 400MG/250ML PREMIX 250 ML IV ONE (06:15)
[2022-07-11] MEDS ORDERED: MAGNESIUM/ALUMINUM HYDROXIDE/SIMETHICONE 30ML UDC PO PRN (06:45)
[2022-07-11] MEDS ORDERED: DEXT 5%/0.45% NACL KCL 10MEQ/L 1,000 ML IV SCH (06:45)
[2022-07-11] MEDS ORDERED: DOCUSATE SODIUM 100MG CAPSULE PO PRN (06:45)
[2022-07-11] MEDS: AMLODIPINE 10MG TABLET PO SCH (09:00)
[2022-07-11 09:42] LABS: BG BASE EXCESS -4.5 mmol/L (-2.0-2.0); BG DEOXYHEMOGLOBIN 0.9 % (0.0-5.0); BG FRACTION INSPIRED OXYGEN 100; BG HCO3 ACT 20.9 mmol/L (22.0-26.0); BG METHEMOGLOBIN 0.2 % (0.0-1.5); BG OXYGEN SATURATION 99.1 % (92.0-98.5); BG OXYHEMOGLOBIN 98.9 % (94.0-97.0); BG PCO2 39.4 mmHg (35.0-45.0); BG PH 7.342 (7.350-7.450); BG PO2 182.1 mmHg (75.0-100.0); BG SAMPLE SITE RIGHT BRACHIAL; BG TOTAL HEMOGLOBIN 11.7 g/dL (12.0-18.0); BG VENT MODE VENT - AC
[2022-07-11] MEDS ORDERED: OXYC1TAB10 PO (10:03)
[2022-07-11] MEDS ORDERED: FAMO20TA8 PO (10:03)
[2022-07-11] MEDS ORDERED: FURO40TA5 PO (10:03)
[2022-07-11] MEDS ORDERED: ALBU90AE (10:03)
[2022-07-11] MEDS ORDERED: GABA-532 PO (10:03)
[2022-07-11] MEDS ORDERED: CLON0.1T PO (10:03)
[2022-07-11] MEDS ORDERED: DULO30CA52 PO (10:03)
[2022-07-11] MEDS ORDERED: PHENYLEPHRINE 100 MG in DEXT 5% WATER 240 ML IV PRN ×2 (11:30→12:13)
[2022-07-11] MEDS ORDERED: NOREPINEPHRINE 8MG/250ML PMX 250 ML IV PRN (11:30)
[2022-07-11] MEDS: NOREPINEPHRINE 32 MG in DEXT 5% WATER 218 ML IV PRN (12:10)
[2022-07-11] MEDS: GABAPENTIN 300MG CAPSULE PO SCH ×2 (12:15→17:00)
[2022-07-11] MEDS: DULOXETINE HCL 30MG DR CAPSULE PO SCH (12:15)
[2022-07-11] MEDS ORDERED: NALOXONE HCL 0.4MG/ML VIAL IV PRN (12:15)
[2022-07-11] MEDS: IPRATROPIUM/ALBUTEROL 0.5-3(2.5)MG/3ML NEB HHN SCH ×3 (12:40→20:31)
[2022-07-11] MEDS: DEXT 5%/0.45% NACL KCL 10MEQ/L 1,000 ML IV SCH (13:07)
[2022-07-11] MEDS: PANTOPRAZOLE SODIUM 40 MG/VIAL IV SCH (13:07)
[2022-07-11] MEDS: PIPERACILLIN/TAZOBACTAM 3.375 G in DEXTROSE 5% WATER 50 ML IV SCH ×2 (13:08→21:16)
[2022-07-11] MEDS: ENOXAPARIN 40MG/0.4ML SYR SUBCUT SCH (13:08)
[2022-07-11] MEDS ORDERED: VANCOMYCIN 1G PREMIX 200 ML IV SCH (14:00)
[2022-07-11] MEDS ORDERED: PROPOFOL 10MG/ML 100ML 100 ML IV PRN (14:15)
[2022-07-11] MEDS ORDERED: DEXTROSE 50% WATER 50ML SYRINGE IV PRN (15:45)
[2022-07-11] MEDS: SODIUM CHLORIDE 3% FOR INH 4ML UD NEB INH SCH (16:00)
[2022-07-11] MEDS: ACETYLCYSTEINE 100MG/ML 10% VIAL 4ML INH SCH (16:02)
[2022-07-11] MEDS: INSULIN LISPRO 100 UNITS/ML SUBCUT SCH (17:50)
[2022-07-11] MEDS: VANCOMYCIN 750MG PREMIX 150 ML IV SCH (17:50)
[2022-07-11] MEDS: BLOOD SUGAR DIAGNOSTIC STRIP TEST SCH (18:02)
[2022-07-12] VITALS (87 sets, daily range): BP systolic 62–175; BP diastolic 42–116
[2022-07-12] MEDS: IPRATROPIUM/ALBUTEROL 0.5-3(2.5)MG/3ML NEB HHN SCH ×6 (00:09→20:11)
[2022-07-12] MEDS: ACETYLCYSTEINE 100MG/ML 10% VIAL 4ML INH SCH ×3 (00:09→16:15)
[2022-07-12] MEDS: BLOOD SUGAR DIAGNOSTIC STRIP TEST SCH ×4 (00:20→18:10)
[2022-07-12] MEDS: INSULIN LISPRO 100 UNITS/ML SUBCUT SCH ×4 (00:30→17:44)
[2022-07-12] MEDS: DEXT 5%/0.45% NACL KCL 10MEQ/L 1,000 ML IV SCH ×2 (02:56→17:25)
[2022-07-12] MEDS: PIPERACILLIN/TAZOBACTAM 3.375 G in DEXTROSE 5% WATER 50 ML IV SCH ×3 (05:04→21:28)
[2022-07-12 05:36] LABS: HEMATOCRIT. 31.5 % (36.0-48.0); HEMOGLOBIN. 9.9 g/dL (12.0-16.0); MEAN CORPUSCULAR HEMOGLOBIN 25.2 pg (28.0-32.0); MEAN CORPUSCULAR VOLUME 80.2 fL (81.0-99.0); MEAN PLATELET VOLUME 7.3 fl (7.4-10.4); PLATELET 472 x1000/uL (130-400); RED BLOOD CELL COUNT 3.93 mill/uL (4.2-5.4); RED CELL DISTRIBUTION WIDTH 18.5 % (11.6-14.6)
[2022-07-12 06:01] LABS: CHLORIDE 103 mEq/L (98-107)
[2022-07-12 06:18] LABS: HDL CHOLESTEROL 63 mg/dL (40-59); LDL CHOLESTEROL 71 mg/dL (5-100)
[2022-07-12] MEDS: HYDROMORPHONE HCL/PF 2MG/ML CPJ IV PRN ×2 (07:50→17:27)
[2022-07-12] MEDS: PANTOPRAZOLE SODIUM 40 MG/VIAL IV SCH (08:06)
[2022-07-12] MEDS: ENOXAPARIN 40MG/0.4ML SYR SUBCUT SCH (08:06)
[2022-07-12] MEDS: DULOXETINE HCL 30MG DR CAPSULE PO SCH (08:19)
[2022-07-12] MEDS: GABAPENTIN 300MG CAPSULE PO SCH ×2 (08:20→17:00)
[2022-07-12] MEDS: AMLODIPINE 10MG TABLET PO SCH (08:20)
[2022-07-12 08:59] LABS: BG BASE EXCESS -4.8 mmol/L (-2.0-2.0); BG CARBOXYHEMOGLOBIN 0.3 % (0.5-1.5); BG DEOXYHEMOGLOBIN 0.7 % (0.0-5.0); BG FRACTION INSPIRED OXYGEN 90; BG HCO3 ACT 18.4 mmol/L (22.0-26.0); BG METHEMOGLOBIN 0.2 % (0.0-1.5); BG OXYGEN SATURATION 99.3 % (92.0-98.5); BG OXYHEMOGLOBIN 98.8 % (94.0-97.0); BG PCO2 27.8 mmHg (35.0-45.0); BG PH 7.439 (7.350-7.450); BG PO2 234.6 mmHg (75.0-100.0); BG SAMPLE SITE RIGHT RADIAL; BG TOTAL HEMOGLOBIN 9.5 g/dL (12.0-18.0); BG VENT MODE VENT - AC
[2022-07-12] MEDS: KCL 20MEQ/100ML PREMIX 100 ML IV SCH ×2 (09:50→12:21)
[2022-07-12] MEDS ORDERED: IOHEXOL-350 100 ML BOTTLE ONE (12:14)
[2022-07-12] MEDS: VANCOMYCIN 750MG PREMIX 150 ML IV SCH (12:21)
[2022-07-12] MEDS ORDERED: LEVOFLOXACIN 750MG PREMIX 150 ML IV SCH (16:00)
[2022-07-12 16:26] LABS: PLATELET ESTIMATE INCREASED
[2022-07-12] MEDS: SULFAMETHOXAZOLE/TRIMETHOPRIM 800/160MG TABLET PO SCH (20:55)
[2022-07-12] MEDS: TRAMADOL 50MG TABLET PO PRN (20:58)
[2022-07-12] MEDS: NOREPINEPHRINE 32 MG in DEXT 5% WATER 218 ML IV PRN (22:18)
[2022-07-13] VITALS (27 sets, daily range): BP systolic 111–142; BP diastolic 57–83
[2022-07-13] MEDS: BLOOD SUGAR DIAGNOSTIC STRIP TEST SCH (00:04)
[2022-07-13] MEDS: INSULIN LISPRO 100 UNITS/ML SUBCUT SCH (00:19)
[2022-07-13] MEDS: IPRATROPIUM/ALBUTEROL 0.5-3(2.5)MG/3ML NEB HHN SCH ×4 (00:40→20:43)
[2022-07-13] MEDS: ACETYLCYSTEINE 100MG/ML 10% VIAL 4ML INH SCH ×2 (00:40→15:47)
[2022-07-13 04:22] LABS: CHLORIDE 106 mEq/L (98-107)
[2022-07-13] MEDS: AMLODIPINE 10MG TABLET PO SCH ×2 (09:00→13:12)
[2022-07-13] MEDS: PANTOPRAZOLE SODIUM 40 MG/VIAL IV SCH (09:00)
[2022-07-13] MEDS: SULFAMETHOXAZOLE/TRIMETHOPRIM 800/160MG TABLET PO SCH ×2 (11:00→21:17)
[2022-07-13 11:59] LABS: BG BASE EXCESS -4.3 mmol/L (-2.0-2.0); BG CARBOXYHEMOGLOBIN 0.3 % (0.5-1.5); BG DEOXYHEMOGLOBIN 1.1 % (0.0-5.0); BG FRACTION INSPIRED OXYGEN 40; BG HCO3 ACT 17.1 mmol/L (22.0-26.0); BG METHEMOGLOBIN 0.3 % (0.0-1.5); BG OXYGEN SATURATION 98.9 % (92.0-98.5); BG OXYHEMOGLOBIN 98.3 % (94.0-97.0); BG PH 7.529 (7.350-7.450); BG PO2 135.2 mmHg (75.0-100.0); BG SAMPLE SITE RIGHT RADIAL; BG TOTAL HEMOGLOBIN 9.4 g/dL (12.0-18.0); BG VENT MODE VENT - AC
[2022-07-13] MEDS: ENOXAPARIN 40MG/0.4ML SYR SUBCUT SCH (13:11)
[2022-07-13] MEDS: GABAPENTIN 300MG CAPSULE PO SCH ×2 (13:12→16:54)
[2022-07-13] MEDS: DULOXETINE HCL 30MG DR CAPSULE PO SCH (13:12)
[2022-07-13] MEDS ORDERED: LIDOCAINE HCL/PF 1% 2ML VIAL ONE (13:34)
[2022-07-13 14:59] LABS: BG BASE EXCESS -5.8 mmol/L (-2.0-2.0); BG CARBOXYHEMOGLOBIN 0.3 % (0.5-1.5); BG DEOXYHEMOGLOBIN 1.7 % (0.0-5.0); BG HCO3 ACT 17.5 mmol/L (22.0-26.0); BG OXYGEN SATURATION 98.3 % (92.0-98.5); BG PCO2 26.9 mmHg (35.0-45.0); BG PO2 117.6 mmHg (75.0-100.0); BG SAMPLE SITE LEFT RADIAL; BG TOTAL HEMOGLOBIN 9.5 g/dL (12.0-18.0); BG VENT MODE VENT - AC
[2022-07-13] MEDS: DEXT 5%/0.45% NACL KCL 10MEQ/L 1,000 ML IV SCH (18:28)
[2022-07-13] MEDS: SODIUM CHLORIDE 3% FOR INH 4ML UD NEB INH SCH (20:42)
[2022-07-13] MEDS: PIPERACILLIN/TAZOBACTAM 3.375 G in DEXTROSE 5% WATER 50 ML IV SCH (21:59)
[2022-07-14] VITALS (58 sets, daily range): BP systolic 86–171; BP diastolic 36–99
[2022-07-14] MEDS: SODIUM CHLORIDE 3% FOR INH 4ML UD NEB INH SCH ×7 (00:26→20:32)
[2022-07-14] MEDS: ACETYLCYSTEINE 100MG/ML 10% VIAL 4ML INH SCH ×3 (00:27→17:07)
[2022-07-14] MEDS: IPRATROPIUM/ALBUTEROL 0.5-3(2.5)MG/3ML NEB HHN SCH ×6 (00:28→20:32)
[2022-07-14] MEDS: INSULIN LISPRO 100 UNITS/ML SUBCUT SCH ×4 (00:33→17:38)
[2022-07-14] MEDS: PIPERACILLIN/TAZOBACTAM 3.375 G in DEXTROSE 5% WATER 50 ML IV SCH ×2 (05:24→13:32)
[2022-07-14] MEDS: HYDROMORPHONE HCL/PF 2MG/ML CPJ IV PRN ×3 (05:24→20:15)
[2022-07-14] MEDS: DEXT 5%/0.45% NACL KCL 10MEQ/L 1,000 ML IV SCH ×3 (05:25→20:16)
[2022-07-14 05:54] LABS: CHLORIDE 105 mEq/L (98-107); HEMATOCRIT. 27.8 % (36.0-48.0); HEMOGLOBIN. 8.9 g/dL (12.0-16.0); MEAN CORPUSCULAR HEMOGLOBIN 25.4 pg (28.0-32.0); MEAN CORPUSCULAR VOLUME 79.3 fL (81.0-99.0); MEAN PLATELET VOLUME 7.3 fl (7.4-10.4); PLATELET 352 x1000/uL (130-400); RED BLOOD CELL COUNT 3.51 mill/uL (4.2-5.4); RED CELL DISTRIBUTION WIDTH 18.3 % (11.6-14.6)
[2022-07-14] MEDS: BLOOD SUGAR DIAGNOSTIC STRIP TEST SCH ×4 (06:13→17:39)
[2022-07-14] MEDS: ENOXAPARIN 40MG/0.4ML SYR SUBCUT SCH (09:00)
[2022-07-14] MEDS: SULFAMETHOXAZOLE/TRIMETHOPRIM 800/160MG TABLET PO SCH ×2 (09:08→20:16)
[2022-07-14] MEDS: GABAPENTIN 300MG CAPSULE PO SCH ×2 (09:08→16:11)
[2022-07-14] MEDS: PANTOPRAZOLE SODIUM 40 MG/VIAL IV SCH (09:08)
[2022-07-14] MEDS: DULOXETINE HCL 30MG DR CAPSULE PO SCH (09:09)
[2022-07-14] MEDS ORDERED: AMPICILLIN XX SCH (15:15)
[2022-07-14] MEDS ORDERED: SULBACTAM XX SCH (15:15)
[2022-07-14] MEDS: CEFEPIME 2,000 MG in DEXT 5% WATER 100 ML IV SCH (16:38)
[2022-07-14] MEDS: SODIUM CHLORIDE 0.9% IV SCH (20:14)
[2022-07-14] MEDS: SULBACTAM NA IV SCH (20:14)
[2022-07-14] MEDS: AMPICILLIN SOD IV SCH (20:14)
[2022-07-14] MEDS: ONDANSETRON HCL 4MG/2ML INJ IV PRN (20:15)
[2022-07-15] VITALS (59 sets, daily range): BP systolic 94–163; BP diastolic 56–90
[2022-07-15] MEDS: ACETYLCYSTEINE 100MG/ML 10% VIAL 4ML INH SCH ×3 (00:11→16:25)
[2022-07-15] MEDS: SODIUM CHLORIDE 3% FOR INH 4ML UD NEB INH SCH ×4 (00:11→20:06)
[2022-07-15] MEDS: IPRATROPIUM/ALBUTEROL 0.5-3(2.5)MG/3ML NEB HHN SCH ×5 (00:12→20:06)
[2022-07-15] MEDS: CEFEPIME 2,000 MG in DEXT 5% WATER 100 ML IV SCH ×3 (01:05→16:34)
[2022-07-15] MEDS: AMPICILLIN SOD IV SCH ×3 (04:20→20:01)
[2022-07-15] MEDS: SODIUM CHLORIDE 0.9% IV SCH ×3 (04:20→20:01)
[2022-07-15] MEDS: SULBACTAM NA IV SCH ×3 (04:20→20:01)
[2022-07-15 05:42] LABS: CHLORIDE 111 mEq/L (98-107)
[2022-07-15] MEDS: INSULIN LISPRO 100 UNITS/ML SUBCUT SCH ×4 (06:00→18:00)
[2022-07-15] MEDS: BLOOD SUGAR DIAGNOSTIC STRIP TEST SCH ×4 (06:11→18:29)
[2022-07-15 06:48] LABS: PLATELET ESTIMATE NORMAL
[2022-07-15] MEDS: ONDANSETRON HCL 4MG/2ML INJ IV PRN ×2 (07:49→16:33)
[2022-07-15] MEDS: PANTOPRAZOLE SODIUM 40 MG/VIAL IV SCH (08:46)
[2022-07-15] MEDS: SULFAMETHOXAZOLE/TRIMETHOPRIM 800/160MG TABLET PO SCH ×2 (09:00→21:19)
[2022-07-15] MEDS: DULOXETINE HCL 30MG DR CAPSULE PO SCH (09:00)
[2022-07-15] MEDS: ENOXAPARIN 40MG/0.4ML SYR SUBCUT SCH (09:00)
[2022-07-15] MEDS: GABAPENTIN 300MG CAPSULE PO SCH ×2 (09:00→16:34)
[2022-07-15] MEDS: AMLODIPINE 10MG TABLET PO SCH (09:00)
[2022-07-15 09:25] LABS: HEMOGLOBIN. 8.7 g/dL (12.0-16.0); MEAN CORPUSCULAR HEMOGLOBIN 25.1 pg (28.0-32.0); MEAN CORPUSCULAR VOLUME 80.8 fL (81.0-99.0); MEAN PLATELET VOLUME 7.4 fl (7.4-10.4); PLATELET 386 x1000/uL (130-400); RED BLOOD CELL COUNT 3.47 mill/uL (4.2-5.4); RED CELL DISTRIBUTION WIDTH 18.6 % (11.6-14.6)
[2022-07-15] MEDS: HYDROMORPHONE HCL/PF 2MG/ML CPJ IV PRN ×2 (09:34→17:22)
[2022-07-15] MEDS: DEXT 5%/0.45% NACL KCL 10MEQ/L 1,000 ML IV SCH (09:43)
[2022-07-15] MEDS ORDERED: RACEPINEPHRINE 2.25% 0.5ML NEB VIAL HHN PRN (10:30)
[2022-07-15 10:42] LABS: PLATELET ESTIMATE NORMAL
[2022-07-15] MEDS: MIDAZOLAM HCL 5 MG/5 ML VIAL IV PRN ×2 (12:59→19:04)
[2022-07-15] MEDS: MIDODRINE HCL 2.5MG TABLET PO SCH ×2 (13:00→16:34)
[2022-07-15] MEDS: TRAMADOL 50MG TABLET PO PRN (21:19)
[2022-07-16] VITALS (26 sets, daily range): BP systolic 101–161; BP diastolic 59–88
[2022-07-16] MEDS: ACETYLCYSTEINE 100MG/ML 10% VIAL 4ML INH SCH ×2 (00:22→08:27)
[2022-07-16] MEDS: IPRATROPIUM/ALBUTEROL 0.5-3(2.5)MG/3ML NEB HHN SCH ×6 (00:22→20:19)
[2022-07-16] MEDS: SODIUM CHLORIDE 3% FOR INH 4ML UD NEB INH SCH ×3 (00:22→20:19)
[2022-07-16] MEDS: BLOOD SUGAR DIAGNOSTIC STRIP TEST SCH ×5 (00:34→23:18)
[2022-07-16] MEDS: DEXT 5%/0.45% NACL KCL 10MEQ/L 1,000 ML IV SCH ×2 (00:41→11:38)
[2022-07-16] MEDS: HYDROMORPHONE HCL/PF 2MG/ML CPJ IV PRN ×4 (00:41→22:41)
[2022-07-16] MEDS: CEFEPIME 2,000 MG in DEXT 5% WATER 100 ML IV SCH ×3 (00:41→16:33)
[2022-07-16] MEDS: SODIUM CHLORIDE 0.9% IV SCH ×3 (04:32→20:28)
[2022-07-16] MEDS: MIDAZOLAM HCL 5 MG/5 ML VIAL IV PRN (04:32)
[2022-07-16] MEDS: AMPICILLIN SOD IV SCH ×3 (04:32→20:28)
[2022-07-16] MEDS: SULBACTAM NA IV SCH ×3 (04:32→20:28)
[2022-07-16] MEDS: INSULIN LISPRO 100 UNITS/ML SUBCUT SCH ×4 (05:48→18:00)
[2022-07-16] MEDS: DULOXETINE HCL 30MG DR CAPSULE PO SCH (08:50)
[2022-07-16] MEDS: GABAPENTIN 300MG CAPSULE PO SCH ×2 (08:50→16:33)
[2022-07-16] MEDS: SULFAMETHOXAZOLE/TRIMETHOPRIM 800/160MG TABLET PO SCH ×2 (08:50→20:31)
[2022-07-16] MEDS: PANTOPRAZOLE SODIUM 40 MG/VIAL IV SCH (08:50)
[2022-07-16] MEDS: ENOXAPARIN 40MG/0.4ML SYR SUBCUT SCH (08:51)
[2022-07-16] MEDS: AMLODIPINE 10MG TABLET PO SCH (09:00)
[2022-07-16] MEDS: MIDODRINE HCL 2.5MG TABLET PO SCH ×3 (09:07→16:33)
[2022-07-16] MEDS ORDERED: VANCOMYCIN 750MG PREMIX 150 ML IV SCH (16:30)
[2022-07-17] VITALS (24 sets, daily range): BP systolic 105–172; BP diastolic 64–96
[2022-07-17] MEDS: CEFEPIME 2,000 MG in DEXT 5% WATER 100 ML IV SCH ×3 (00:21→18:22)
[2022-07-17] MEDS: DEXT 5%/0.45% NACL KCL 10MEQ/L 1,000 ML IV SCH ×2 (00:22→15:08)
[2022-07-17] MEDS: IPRATROPIUM/ALBUTEROL 0.5-3(2.5)MG/3ML NEB HHN SCH ×6 (00:24→20:18)
[2022-07-17] MEDS: SODIUM CHLORIDE 3% FOR INH 4ML UD NEB INH SCH ×6 (00:24→20:19)
[2022-07-17] MEDS: SULBACTAM NA IV SCH ×3 (04:08→21:51)
[2022-07-17] MEDS: SODIUM CHLORIDE 0.9% IV SCH ×3 (04:08→21:51)
[2022-07-17] MEDS: AMPICILLIN SOD IV SCH ×3 (04:08→21:51)
[2022-07-17] MEDS: HYDROMORPHONE HCL/PF 2MG/ML CPJ IV PRN ×3 (04:51→18:23)
[2022-07-17 05:27] LABS: BASOPHILS % 0.4 % (0.0-2.0); EOSINOPHILS % 3.8 % (0.0-5.0); HEMATOCRIT. 27.1 % (36.0-48.0); HEMOGLOBIN. 8.6 g/dL (12.0-16.0); LYMPHOCYTES % 7.1 % (20.0-50.0); MEAN CORPUSCULAR HEMOGLOBIN 25.5 pg (28.0-32.0); MEAN CORPUSCULAR VOLUME 80.1 fL (81.0-99.0); MONOCYTES % 7.6 % (2.0-8.0); NEUTROPHILS % 81.1 % (40.0-76.0); RED BLOOD CELL COUNT 3.38 mill/uL (4.2-5.4); RED CELL DISTRIBUTION WIDTH 18.2 % (11.6-14.6)
[2022-07-17 05:35] LABS: CHLORIDE 112 mEq/L (98-107)
[2022-07-17] MEDS: INSULIN LISPRO 100 UNITS/ML SUBCUT SCH ×4 (06:00→18:00)
[2022-07-17] MEDS: BLOOD SUGAR DIAGNOSTIC STRIP TEST SCH ×3 (06:07→18:23)
[2022-07-17] MEDS: ENOXAPARIN 40MG/0.4ML SYR SUBCUT SCH (08:29)
[2022-07-17] MEDS: SULFAMETHOXAZOLE/TRIMETHOPRIM 800/160MG TABLET PO SCH ×2 (09:00→21:00)
[2022-07-17] MEDS: DULOXETINE HCL 30MG DR CAPSULE PO SCH (09:00)
[2022-07-17] MEDS: AMLODIPINE 10MG TABLET PO SCH (09:00)
[2022-07-17] MEDS: GABAPENTIN 300MG CAPSULE PO SCH ×2 (09:00→17:00)
[2022-07-17] MEDS: MIDODRINE HCL 2.5MG TABLET PO SCH ×3 (09:00→17:00)
[2022-07-17 09:08] LABS: BG BASE EXCESS -9.1 mmol/L (-2.0-2.0); BG CARBOXYHEMOGLOBIN 0.3 % (0.5-1.5); BG DEOXYHEMOGLOBIN 2.8 % (0.0-5.0); BG FRACTION INSPIRED OXYGEN 40; BG HCO3 ACT 15.6 mmol/L (22.0-26.0); BG METHEMOGLOBIN 0.4 % (0.0-1.5); BG OXYGEN SATURATION 97.2 % (92.0-98.5); BG OXYHEMOGLOBIN 96.5 % (94.0-97.0); BG PCO2 29.7 mmHg (35.0-45.0); BG PH 7.339 (7.350-7.450); BG PO2 94.2 mmHg (75.0-100.0); BG SAMPLE SITE RIGHT RADIAL; BG TOTAL HEMOGLOBIN 9.6 g/dL (12.0-18.0); BG VENT MODE VENT - AC
[2022-07-17 10:19] LABS: PLATELET 411 x1000/uL (130-400)
[2022-07-17] MEDS: PANTOPRAZOLE SODIUM 40 MG/VIAL IV SCH (10:52)
[2022-07-18] VITALS (23 sets, daily range): BP systolic 131–205; BP diastolic 63–127
[2022-07-18] MEDS: IPRATROPIUM/ALBUTEROL 0.5-3(2.5)MG/3ML NEB HHN SCH ×6 (00:17→20:12)
[2022-07-18] MEDS: SODIUM CHLORIDE 3% FOR INH 4ML UD NEB INH SCH ×6 (00:18→20:12)
[2022-07-18] MEDS: CEFEPIME 2,000 MG in DEXT 5% WATER 100 ML IV SCH ×3 (02:24→17:14)
[2022-07-18] MEDS: ONDANSETRON HCL 4MG/2ML INJ IV PRN (04:58)
[2022-07-18] MEDS: HYDROMORPHONE HCL/PF 2MG/ML CPJ IV PRN ×2 (05:02→10:31)
[2022-07-18] MEDS: SODIUM CHLORIDE 0.9% IV SCH ×3 (05:02→20:27)
[2022-07-18] MEDS: AMPICILLIN SOD IV SCH ×3 (05:02→20:27)
[2022-07-18] MEDS: SULBACTAM NA IV SCH ×3 (05:02→20:27)
[2022-07-18] MEDS: DEXT 5%/0.45% NACL KCL 10MEQ/L 1,000 ML IV SCH ×2 (05:03→17:13)
[2022-07-18] MEDS: ENOXAPARIN 40MG/0.4ML SYR SUBCUT SCH (08:13)
[2022-07-18] MEDS: AMLODIPINE 10MG TABLET PO SCH (08:14)
[2022-07-18] MEDS: MIDODRINE HCL 2.5MG TABLET PO SCH ×3 (08:14→17:00)
[2022-07-18] MEDS: SULFAMETHOXAZOLE/TRIMETHOPRIM 800/160MG TABLET PO SCH ×2 (08:14→21:00)
[2022-07-18] MEDS: GABAPENTIN 300MG CAPSULE PO SCH ×2 (08:14→17:00)
[2022-07-18] MEDS: DULOXETINE HCL 30MG DR CAPSULE PO SCH (08:15)
[2022-07-18] MEDS: PANTOPRAZOLE SODIUM 40 MG/VIAL IV SCH (08:42)
[2022-07-18] MEDS: INSULIN LISPRO 100 UNITS/ML SUBCUT SCH ×3 (12:00→17:28)
[2022-07-18] MEDS: BLOOD SUGAR DIAGNOSTIC STRIP TEST SCH ×3 (12:48→17:28)
[2022-07-18] MEDS: MIDAZOLAM HCL 2 MG/2 ML VIAL IV PRN ×2 (16:20→19:45)
[2022-07-18] MEDS ORDERED: VANCOMYCIN 750MG PREMIX 150 ML IV NR (18:00)
[2022-07-19] VITALS (12 sets, daily range): BP systolic 82–158; BP diastolic 46–107
[2022-07-19] MEDS: IPRATROPIUM/ALBUTEROL 0.5-3(2.5)MG/3ML NEB HHN SCH ×5 (00:33→20:25)
[2022-07-19] MEDS: BLOOD SUGAR DIAGNOSTIC STRIP TEST SCH ×4 (00:49→18:39)
[2022-07-19] MEDS: HYDROMORPHONE HCL/PF 2MG/ML CPJ IV PRN ×3 (00:50→21:48)
[2022-07-19] MEDS: CEFEPIME 2,000 MG in DEXT 5% WATER 100 ML IV SCH ×3 (00:50→15:47)
[2022-07-19] MEDS: SULBACTAM NA IV SCH ×3 (03:16→20:06)
[2022-07-19] MEDS: SODIUM CHLORIDE 0.9% IV SCH ×3 (03:16→20:06)
[2022-07-19] MEDS: AMPICILLIN SOD IV SCH ×3 (03:16→20:06)
[2022-07-19] MEDS: INSULIN LISPRO 100 UNITS/ML SUBCUT SCH ×4 (05:17→18:39)
[2022-07-19] MEDS: PANTOPRAZOLE SODIUM 40 MG/VIAL IV SCH (08:53)
[2022-07-19] MEDS: SULFAMETHOXAZOLE/TRIMETHOPRIM 800/160MG TABLET PO SCH ×2 (08:54→20:07)
[2022-07-19] MEDS: DULOXETINE HCL 30MG DR CAPSULE PO SCH (08:54)
[2022-07-19] MEDS: GABAPENTIN 300MG CAPSULE PO SCH ×2 (08:54→17:00)
[2022-07-19] MEDS: MIDODRINE HCL 2.5MG TABLET PO SCH ×3 (09:00→17:00)
[2022-07-19] MEDS: AMLODIPINE 10MG TABLET PO SCH (09:00)
[2022-07-19 16:08] LABS: INR 1.3; PROTHROMBIN TIME 13.5 sec (9.6-11.0)
[2022-07-19 16:25] LABS: TOTAL IRON BINDING CAPACITY 168 ug/dL (250-450)
[2022-07-19 16:52] LABS: FOLIC ACID (FOLATE) SERUM 14.1 ng/mL (>5.38)
[2022-07-19] MEDS: METOCLOPRAMIDE HCL 10MG/2ML VIAL IV SCH (18:35)
[2022-07-19] MEDS: SODIUM CHLORIDE 3% FOR INH 4ML UD NEB INH SCH (20:25)
[2022-07-20] VITALS (12 sets, daily range): BP systolic 97–157; BP diastolic 63–95
[2022-07-20] MEDS: BLOOD SUGAR DIAGNOSTIC STRIP TEST SCH ×5 (00:04→23:32)
[2022-07-20] MEDS: METOCLOPRAMIDE HCL 10MG/2ML VIAL IV SCH ×5 (00:12→23:32)
[2022-07-20] MEDS: CEFEPIME 2,000 MG in DEXT 5% WATER 100 ML IV SCH ×2 (00:13→09:00)
[2022-07-20] MEDS: INSULIN LISPRO 100 UNITS/ML SUBCUT SCH ×5 (00:13→23:35)
[2022-07-20] MEDS: IPRATROPIUM/ALBUTEROL 0.5-3(2.5)MG/3ML NEB HHN SCH ×6 (00:18→20:17)
[2022-07-20] MEDS: SODIUM CHLORIDE 3% FOR INH 4ML UD NEB INH SCH ×6 (00:18→20:16)
[2022-07-20] MEDS: SODIUM CHLORIDE 0.9% IV SCH ×2 (03:32→12:00)
[2022-07-20] MEDS: SULBACTAM NA IV SCH ×2 (03:32→12:00)
[2022-07-20] MEDS: AMPICILLIN SOD IV SCH ×2 (03:32→12:00)
[2022-07-20 07:09] LABS: CHLORIDE 117 mEq/L (98-107)
[2022-07-20] MEDS: SULFAMETHOXAZOLE/TRIMETHOPRIM 800/160MG TABLET PO SCH ×2 (09:00→20:41)
[2022-07-20] MEDS: AMLODIPINE 10MG TABLET PO SCH (09:00)
[2022-07-20] MEDS: GABAPENTIN 300MG CAPSULE PO SCH ×2 (09:00→17:46)
[2022-07-20] MEDS: MIDODRINE HCL 2.5MG TABLET PO SCH (09:00)
[2022-07-20] MEDS: PANTOPRAZOLE SODIUM 40 MG/VIAL IV SCH (09:00)
[2022-07-20] MEDS: DULOXETINE HCL 30MG DR CAPSULE PO SCH (09:00)
[2022-07-20 11:44] LABS: BG BASE EXCESS -11.2 mmol/L (-2.0-2.0); BG CARBOXYHEMOGLOBIN 0.3 % (0.5-1.5); BG DEOXYHEMOGLOBIN 1.5 % (0.0-5.0); BG FRACTION INSPIRED OXYGEN 30; BG HCO3 ACT 13.2 mmol/L (22.0-26.0); BG METHEMOGLOBIN 0.4 % (0.0-1.5); BG OXYGEN SATURATION 98.5 % (92.0-98.5); BG OXYHEMOGLOBIN 97.8 % (94.0-97.0); BG PCO2 25.4 mmHg (35.0-45.0); BG PH 7.335 (7.350-7.450); BG PO2 144.8 mmHg (75.0-100.0); BG SAMPLE SITE LEFT RADIAL; BG TOTAL HEMOGLOBIN 10.1 g/dL (12.0-18.0); BG VENT MODE VENT - AC
[2022-07-20] MEDS: NYSTATIN 100,000 UNITS/GM CREAM 15GM TOP SCH ×2 (13:00→20:42)
[2022-07-20] MEDS: MENTHOL/LANOLIN/CALAMINE/ZN OX OINT 71GM TOP SCH ×2 (13:00→20:42)
[2022-07-20] MEDS ORDERED: BISACODYL 10MG SUPP RC ONE (13:30)
[2022-07-20] MEDS ORDERED: DOCUSATE SODIUM 100MG CAPSULE PO SCH (13:30)
[2022-07-20] MEDS ORDERED: VANCOMYCIN 750MG PMX (XELLIA) 150 ML IV SCH (15:00)
[2022-07-20 15:07] LABS: HEMATOCRIT 31.8 % (36.0-48.0); HEMOGLOBIN 9.7 g/dL (12.0-16.0); MEAN CORPUSCULAR HEMOGLOBIN 25.2 pg (28.0-32.0); MEAN CORPUSCULAR VOLUME 82.9 fL (81.0-99.0); PLATELET 425 x1000/uL (130-400); RED BLOOD CELL COUNT 3.84 mill/uL (4.2-5.4); RED CELL DISTRIBUTION WIDTH 19.6 % (11.6-14.6)
[2022-07-20] MEDS ORDERED: *TOBRAMYCIN PER PHARMACY XX SCH (16:15)
[2022-07-20] MEDS ORDERED: DEXT 5% IV SCH (17:30)
[2022-07-20] MEDS ORDERED: TOBRAMYCIN SULFATE IV SCH (17:30)
[2022-07-20] MEDS ORDERED: WATER IV SCH (17:30)
[2022-07-20] MEDS: DOCUSATE SODIUM SUGAR FREE 100MG/10ML UDC NG SCH (17:46)
[2022-07-20] MEDS: WATER IV SCH (20:40)
[2022-07-20] MEDS: DEXT 5% IV SCH (20:40)
[2022-07-20] MEDS: TOBRAMYCIN SULFATE IV SCH (20:40)
[2022-07-20] MEDS: METRONIDAZOLE 500MG TABLET PO SCH (21:45)
[2022-07-21] VITALS (11 sets, daily range): BP systolic 104–132; BP diastolic 52–99
[2022-07-21] MEDS: IPRATROPIUM/ALBUTEROL 0.5-3(2.5)MG/3ML NEB HHN SCH ×6 (00:04→20:13)
[2022-07-21] MEDS: SODIUM CHLORIDE 3% FOR INH 4ML UD NEB INH SCH ×3 (04:00→08:00)
[2022-07-21] MEDS: BLOOD SUGAR DIAGNOSTIC STRIP TEST SCH ×3 (05:15→17:57)
[2022-07-21] MEDS: METOCLOPRAMIDE HCL 10MG/2ML VIAL IV SCH ×3 (05:15→17:35)
[2022-07-21] MEDS: DEXT 5% IV SCH (05:16)
[2022-07-21] MEDS: INSULIN LISPRO 100 UNITS/ML SUBCUT SCH ×3 (05:16→17:57)
[2022-07-21] MEDS: TOBRAMYCIN SULFATE IV SCH (05:16)
[2022-07-21] MEDS: WATER IV SCH (05:16)
[2022-07-21 07:48] LABS: HEMATOCRIT 30.2 % (36.0-48.0); HEMOGLOBIN 9.3 g/dL (12.0-16.0); MEAN CORPUSCULAR HEMOGLOBIN 25.3 pg (28.0-32.0); MEAN CORPUSCULAR VOLUME 82.5 fL (81.0-99.0); PLATELET 418 x1000/uL (130-400); RED BLOOD CELL COUNT 3.66 mill/uL (4.2-5.4)
[2022-07-21 07:50] LABS: INR 1.2; PARTIAL THROMBOPLASTIN TIME 33.4 sec (23.4-31.0)
[2022-07-21 08:01] LABS: CHLORIDE 116 mEq/L (98-107)
[2022-07-21 08:16] LABS: CREATINE KINASE 21 IU/L (26-192)
[2022-07-21] MEDS: PANTOPRAZOLE SODIUM 40 MG/VIAL IV SCH (08:33)
[2022-07-21] MEDS: METRONIDAZOLE 500MG TABLET PO SCH ×2 (08:33→21:26)
[2022-07-21] MEDS: DOCUSATE SODIUM SUGAR FREE 100MG/10ML UDC NG SCH ×2 (08:33→17:00)
[2022-07-21] MEDS: DULOXETINE HCL 30MG DR CAPSULE PO SCH (08:33)
[2022-07-21] MEDS: AMLODIPINE 10MG TABLET PO SCH (08:33)
[2022-07-21] MEDS: GABAPENTIN 300MG CAPSULE PO SCH ×2 (08:33→17:35)
[2022-07-21] MEDS: SULFAMETHOXAZOLE/TRIMETHOPRIM 800/160MG TABLET PO SCH ×2 (08:33→21:26)
[2022-07-21] MEDS: MENTHOL/LANOLIN/CALAMINE/ZN OX OINT 71GM TOP SCH ×2 (08:34→21:27)
[2022-07-21] MEDS: NYSTATIN 100,000 UNITS/GM CREAM 15GM TOP SCH ×2 (08:34→21:27)
[2022-07-21] MEDS ORDERED: POTASSIUM CHLORIDE 20MEQ TABLET SR PO NR (09:30)
[2022-07-21] MEDS ORDERED: PROPOFOL 200MG/20ML VIAL IV ONE (12:41)
[2022-07-21] MEDS: ACETYLCYSTEINE 100MG/ML 10% VIAL 4ML INH SCH ×2 (13:31→22:00)
[2022-07-21] MEDS: TOBRAMYCIN SULFATE 100 MG in SODIUM CHLORIDE 0.9% 100 ML IV SCH (17:35)
[2022-07-22] VITALS (12 sets, daily range): BP systolic 101–135; BP diastolic 61–95
[2022-07-22] MEDS: IPRATROPIUM/ALBUTEROL 0.5-3(2.5)MG/3ML NEB HHN SCH ×6 (00:12→20:28)
[2022-07-22] MEDS: METOCLOPRAMIDE HCL 10MG/2ML VIAL IV SCH ×4 (00:34→17:05)
[2022-07-22] MEDS: BLOOD SUGAR DIAGNOSTIC STRIP TEST SCH ×4 (06:00→17:02)
[2022-07-22] MEDS: INSULIN LISPRO 100 UNITS/ML SUBCUT SCH ×4 (06:00→17:02)
[2022-07-22 06:32] LABS: CHLORIDE 119 mEq/L (98-107)
[2022-07-22] MEDS: TOBRAMYCIN SULFATE 100 MG in SODIUM CHLORIDE 0.9% 100 ML IV SCH ×2 (06:32→17:04)
[2022-07-22 06:35] LABS: HEMATOCRIT. 32.4 % (36.0-48.0); MEAN CORPUSCULAR HEMOGLOBIN 25.4 pg (28.0-32.0); MEAN CORPUSCULAR VOLUME 82.9 fL (81.0-99.0); MEAN PLATELET VOLUME 8.2 fl (7.4-10.4); PLATELET 416 x1000/uL (130-400); RED BLOOD CELL COUNT 3.91 mill/uL (4.2-5.4); RED CELL DISTRIBUTION WIDTH 19.3 % (11.6-14.6)
[2022-07-22] MEDS: AMLODIPINE 10MG TABLET PO SCH (08:12)
[2022-07-22] MEDS: METRONIDAZOLE 500MG TABLET PO SCH ×2 (08:12→21:50)
[2022-07-22] MEDS: DULOXETINE HCL 30MG DR CAPSULE PO SCH (08:12)
[2022-07-22] MEDS: PANTOPRAZOLE SODIUM 40 MG/VIAL IV SCH (08:12)
[2022-07-22] MEDS: NYSTATIN 100,000 UNITS/GM CREAM 15GM TOP SCH ×2 (08:13→21:51)
[2022-07-22] MEDS: MENTHOL/LANOLIN/CALAMINE/ZN OX OINT 71GM TOP SCH ×2 (08:13→21:51)
[2022-07-22] MEDS: DOCUSATE SODIUM SUGAR FREE 100MG/10ML UDC NG SCH ×2 (08:13→17:04)
[2022-07-22] MEDS: GABAPENTIN 300MG CAPSULE PO SCH ×2 (08:13→17:05)
[2022-07-22] MEDS: ACETYLCYSTEINE 100MG/ML 10% VIAL 4ML INH SCH ×2 (08:18→16:25)
[2022-07-22] MEDS ORDERED: FURO-151 MT (09:02)
[2022-07-22] MEDS ORDERED: FAMO20TA8 MT (09:02)
[2022-07-22] MEDS ORDERED: GABA-532 MT (09:02)
[2022-07-22] MEDS ORDERED: DULO30CA52 MT (09:02)
[2022-07-22] MEDS ORDERED: POTA-205 MT (09:02)
[2022-07-22] MEDS ORDERED: CLON0.1T PO (09:02)
[2022-07-22] MEDS ORDERED: FERR-71 MT (09:02)
[2022-07-22] MEDS ORDERED: POLY17PO3 MT (09:02)
[2022-07-22] MEDS ORDERED: OXYC1TAB12 MT (09:02)
[2022-07-22] MEDS ORDERED: MOM MT (09:02)
[2022-07-22] MEDS ORDERED: DEXT1DRO6 OP (09:02)
[2022-07-22] MEDS ORDERED: MENT3.5O TP (09:02)
[2022-07-22] MEDS ORDERED: LACT10SO6 MT (09:02)
[2022-07-22] MEDS ORDERED: ALPR-393 MT (09:02)
[2022-07-22] MEDS ORDERED: ONDA4TAB11 PO (09:03)
[2022-07-22] MEDS ORDERED: SIME80TA15 MT (09:03)
[2022-07-22] MEDS ORDERED: ZINC220T3 (09:03)
[2022-07-22] MEDS ORDERED: CRAN3875 PO (09:03)
[2022-07-22 13:28] LABS: PLATELET ESTIMATE INCREASED
[2022-07-23] VITALS (18 sets, daily range): BP systolic 89–148; BP diastolic 50–86
[2022-07-23] MEDS: IPRATROPIUM/ALBUTEROL 0.5-3(2.5)MG/3ML NEB HHN SCH ×6 (00:09→20:23)
[2022-07-23] MEDS: ACETYLCYSTEINE 100MG/ML 10% VIAL 4ML INH SCH ×3 (00:09→16:02)
[2022-07-23] MEDS: METOCLOPRAMIDE HCL 10MG/2ML VIAL IV SCH ×5 (00:39→23:19)
[2022-07-23 05:48] LABS: HEMOGLOBIN. 8.6 g/dL (12.0-16.0); MEAN CORPUSCULAR HEMOGLOBIN 25.3 pg (28.0-32.0); MEAN CORPUSCULAR VOLUME 85.9 fL (81.0-99.0); PLATELET 404 x1000/uL (130-400); RED BLOOD CELL COUNT 3.38 mill/uL (4.2-5.4); RED CELL DISTRIBUTION WIDTH 19.8 % (11.6-14.6)
[2022-07-23] MEDS: INSULIN LISPRO 100 UNITS/ML SUBCUT SCH ×5 (06:00→23:19)
[2022-07-23] MEDS: BLOOD SUGAR DIAGNOSTIC STRIP TEST SCH ×5 (06:00→23:19)
[2022-07-23 06:19] LABS: CHLORIDE 120 mEq/L (98-107); TOBRAMYCIN RANDOM 7.1 ucg/mL
[2022-07-23] MEDS: TOBRAMYCIN SULFATE 100 MG in SODIUM CHLORIDE 0.9% 100 ML IV SCH (06:26)
[2022-07-23] MEDS: DOCUSATE SODIUM SUGAR FREE 100MG/10ML UDC NG SCH ×2 (08:37→17:18)
[2022-07-23] MEDS: AMLODIPINE 10MG TABLET PO SCH (08:37)
[2022-07-23] MEDS: PANTOPRAZOLE SODIUM 40 MG/VIAL IV SCH (08:37)
[2022-07-23] MEDS: GABAPENTIN 300MG CAPSULE PO SCH ×2 (08:37→17:18)
[2022-07-23] MEDS: NYSTATIN 100,000 UNITS/GM CREAM 15GM TOP SCH ×2 (08:38→21:45)
[2022-07-23] MEDS: MENTHOL/LANOLIN/CALAMINE/ZN OX OINT 71GM TOP SCH ×2 (08:38→21:45)
[2022-07-23] MEDS: DULOXETINE HCL 30MG DR CAPSULE PO SCH (08:40)
[2022-07-23] MEDS: METRONIDAZOLE 500MG TABLET PO SCH ×3 (08:42→21:45)
[2022-07-23] MEDS ORDERED: [UNRECOGNIZED DRUG - REMARK] XX SCH (14:30)
[2022-07-23] MEDS: FLUCONAZOLE 200 MG/100ML BAG 100 ML IV SCH (15:59)
[2022-07-23] MEDS: TRAMADOL 50MG TABLET PO PRN (16:22)
[2022-07-23 16:39] LABS: CLARITY URINE TURBID (CLEAR); COLOR URINE YELLOW (YELLOW); KETONES URINE 1+ (NEGATIVE); LEUKOCYTE ESTERASE URINE 3+ (NEGATIVE); NITRITE URINE NEGATIVE (NEGATIVE); OCCULT BLOOD URINE 3+ (NEGATIVE); PROTEIN URINE 2+ (NEGATIVE); SPECIFIC GRAVITY URINE 1.018 (1.005-1.030); UROBILINOGEN URINE 0.2 E.U./dL (0.2-1.0)
[2022-07-23] MEDS: MEROPENEM 1,000 MG in SODIUM CHLORIDE 0.9% 100 ML IV SCH ×2 (16:46→21:45)
[2022-07-23] MEDS: SODIUM CHLORIDE 0.9% IV SCH (17:21)
[2022-07-23] MEDS: POLYMYXIN B SULFATE IV SCH (17:21)
[2022-07-23 17:29] LABS: PLATELET ESTIMATE NORMAL
[2022-07-23] MEDS: VANCOMYCIN 1GM PMX (XELLIA) 200 ML IV SCH (21:45)
[2022-07-24] VITALS (17 sets, daily range): BP systolic 83–113; BP diastolic 43–64
[2022-07-24] MEDS: IPRATROPIUM/ALBUTEROL 0.5-3(2.5)MG/3ML NEB HHN SCH ×7 (00:17→23:57)
[2022-07-24] MEDS: ACETYLCYSTEINE 100MG/ML 10% VIAL 4ML INH SCH ×4 (00:17→23:57)
[2022-07-24] MEDS: TRAMADOL 50MG TABLET PO PRN (00:27)
[2022-07-24] MEDS: METOCLOPRAMIDE HCL 10MG/2ML VIAL IV SCH ×4 (05:18→23:18)
[2022-07-24] MEDS: MEROPENEM 1,000 MG in SODIUM CHLORIDE 0.9% 100 ML IV SCH ×3 (05:18→21:02)
[2022-07-24] MEDS: METRONIDAZOLE 500MG TABLET PO SCH (05:18)
[2022-07-24] MEDS: SODIUM CHLORIDE 0.9% IV SCH ×2 (05:19→21:02)
[2022-07-24] MEDS: INSULIN LISPRO 100 UNITS/ML SUBCUT SCH ×4 (05:19→23:18)
[2022-07-24] MEDS: POLYMYXIN B SULFATE IV SCH ×2 (05:19→21:02)
[2022-07-24] MEDS: BLOOD SUGAR DIAGNOSTIC STRIP TEST SCH ×4 (05:19→23:18)
[2022-07-24 07:08] LABS: MEAN CORPUSCULAR HEMOGLOBIN 25.6 pg (28.0-32.0); MEAN CORPUSCULAR VOLUME 88.1 fL (81.0-99.0); MEAN PLATELET VOLUME 8.5 fl (7.4-10.4); PLATELET 264 x1000/uL (130-400); RED BLOOD CELL COUNT 2.72 mill/uL (4.2-5.4); RED CELL DISTRIBUTION WIDTH 20.6 % (11.6-14.6)
[2022-07-24] MEDS ORDERED: SODIUM CHLORIDE 0.9% 500 ML IV SCH (08:15)
[2022-07-24] MEDS: AMLODIPINE 10MG TABLET PO SCH (09:00)
[2022-07-24] MEDS: DOCUSATE SODIUM SUGAR FREE 100MG/10ML UDC NG SCH ×2 (10:28→17:00)
[2022-07-24] MEDS: GABAPENTIN 300MG CAPSULE PO SCH (10:28)
[2022-07-24] MEDS: PANTOPRAZOLE SODIUM 40 MG/VIAL IV SCH (10:28)
[2022-07-24] MEDS: DULOXETINE HCL 30MG DR CAPSULE PO SCH (10:28)
[2022-07-24] MEDS: MENTHOL/LANOLIN/CALAMINE/ZN OX OINT 71GM TOP SCH ×2 (10:29→21:01)
[2022-07-24] MEDS: NYSTATIN 100,000 UNITS/GM CREAM 15GM TOP SCH ×2 (10:30→21:04)
[2022-07-24 10:59] LABS: CHLORIDE 124 mEq/L (98-107)
[2022-07-24] MEDS ORDERED: AMLODIPINE 10MG TABLET PEG SCH (12:49)
[2022-07-24] MEDS ORDERED: GABAPENTIN 300MG CAPSULE PEG SCH (12:50)
[2022-07-24] MEDS ORDERED: MAGNESIUM/ALUMINUM HYDROXIDE/SIMETHICONE 30ML UDC PEG PRN (12:51)
[2022-07-24] MEDS ORDERED: TRAMADOL 50MG TABLET PEG PRN (13:08)
[2022-07-24 13:17] LABS: PLATELET ESTIMATE NORMAL
[2022-07-24] MEDS ORDERED: KCL 20MEQ/100ML PREMIX 100 ML IV NR (14:00)
[2022-07-24] MEDS: FLUCONAZOLE 200 MG/100ML BAG 100 ML IV SCH (14:25)
[2022-07-24] MEDS: METRONIDAZOLE 500MG TABLET PEG SCH ×2 (15:37→21:07)
[2022-07-24] MEDS: GABAPENTIN SOLN 300MG/6ML UDC NG SCH (18:44)
[2022-07-24] MEDS: VANCOMYCIN 1GM PMX (XELLIA) 200 ML IV SCH (20:06)
[2022-07-24 21:47] LABS: HEMATOCRIT 26.9 % (36.0-48.0); HEMOGLOBIN 8.4 g/dL (12.0-16.0)
[2022-07-25] VITALS (17 sets, daily range): BP systolic 73–97; BP diastolic 38–62
[2022-07-25] MEDS: POLYMYXIN B SULFATE IV SCH ×2 (04:25→17:55)
[2022-07-25] MEDS: SODIUM CHLORIDE 0.9% IV SCH ×2 (04:25→17:55)
[2022-07-25] MEDS: IPRATROPIUM/ALBUTEROL 0.5-3(2.5)MG/3ML NEB HHN SCH ×5 (04:37→20:31)
[2022-07-25] MEDS: MEROPENEM 1,000 MG in SODIUM CHLORIDE 0.9% 100 ML IV SCH ×2 (05:12→13:37)
[2022-07-25] MEDS: BLOOD SUGAR DIAGNOSTIC STRIP TEST SCH ×3 (05:13→17:00)
[2022-07-25] MEDS: METOCLOPRAMIDE HCL 10MG/2ML VIAL IV SCH ×3 (05:14→17:55)
[2022-07-25] MEDS: METRONIDAZOLE 500MG TABLET PEG SCH ×2 (05:15→13:36)
[2022-07-25] MEDS: INSULIN LISPRO 100 UNITS/ML SUBCUT SCH ×3 (06:00→17:07)
[2022-07-25 06:05] LABS: CHLORIDE 122 mEq/L (98-107)
[2022-07-25 06:17] LABS: HEMATOCRIT. 24.8 % (36.0-48.0); HEMOGLOBIN. 7.5 g/dL (12.0-16.0); MEAN CORPUSCULAR VOLUME 88.7 fL (81.0-99.0); MEAN PLATELET VOLUME 8.3 fl (7.4-10.4); PLATELET 280 x1000/uL (130-400); RED CELL DISTRIBUTION WIDTH 19.9 % (11.6-14.6)
[2022-07-25] MEDS ORDERED: SODIUM CHLORIDE 0.9% 100 ML IV ONE (06:45)
[2022-07-25] MEDS ORDERED: SODIUM CHLORIDE 0.9% 1,000 ML IV ONE (07:00)
[2022-07-25] MEDS: ACETYLCYSTEINE 100MG/ML 10% VIAL 4ML INH SCH ×2 (08:09→15:54)
[2022-07-25] MEDS: DULOXETINE HCL 30MG DR CAPSULE PO SCH (08:47)
[2022-07-25] MEDS: DOCUSATE SODIUM SUGAR FREE 100MG/10ML UDC NG SCH ×2 (08:47→17:55)
[2022-07-25] MEDS: PANTOPRAZOLE SODIUM 40 MG/VIAL IV SCH (08:47)
[2022-07-25] MEDS: GABAPENTIN SOLN 300MG/6ML UDC NG SCH ×2 (08:47→17:55)
[2022-07-25] MEDS: MENTHOL/LANOLIN/CALAMINE/ZN OX OINT 71GM TOP SCH (08:48)
[2022-07-25] MEDS: NYSTATIN 100,000 UNITS/GM CREAM 15GM TOP SCH (08:48)
[2022-07-25 10:45] LABS: PLATELET ESTIMATE NORMAL
[2022-07-25 12:31] LABS: HEMATOCRIT 29.8 % (36.0-48.0); HEMOGLOBIN 9.1 g/dL (12.0-16.0)
[2022-07-25] MEDS: MIDODRINE HCL 2.5MG TABLET PEG SCH ×2 (13:36→17:55)
[2022-07-25] MEDS: FLUCONAZOLE 200 MG/100ML BAG 100 ML IV SCH (13:36)
[2022-07-25 18:05] LABS: HEMATOCRIT 27.2 % (36.0-48.0); HEMOGLOBIN 8.3 g/dL (12.0-16.0)
[2022-07-25] MEDS ORDERED: SODIUM CHLORIDE 0.9% 1000ML BAG (SEPSIS BOLUS) IV ONE (18:30)
[2022-07-25] MEDS ORDERED: SODIUM CHLORIDE 0.9% 1000ML BAG (SEPSIS BOLUS) IV NR (18:45)
[2022-07-25 20:34] LABS: HEMATOCRIT 25.4 % (36.0-48.0); HEMOGLOBIN 7.8 g/dL (12.0-16.0)
[2022-07-26] VITALS (79 sets, daily range): BP systolic 54–177; BP diastolic 20–100
[2022-07-26] MEDS: IPRATROPIUM/ALBUTEROL 0.5-3(2.5)MG/3ML NEB HHN SCH ×6 (00:44→20:34)
[2022-07-26] MEDS ORDERED: SODIUM CHLORIDE 0.9% 1000ML BAG (SEPSIS BOLUS) IV ONE (00:45)
[2022-07-26] MEDS: ACETYLCYSTEINE 100MG/ML 10% VIAL 4ML INH SCH ×3 (00:47→16:08)
[2022-07-26] MEDS: METOCLOPRAMIDE HCL 10MG/2ML VIAL IV SCH ×5 (00:53→23:58)
[2022-07-26] MEDS: BLOOD SUGAR DIAGNOSTIC STRIP TEST SCH ×5 (00:53→23:54)
[2022-07-26] MEDS: METRONIDAZOLE 500MG TABLET PEG SCH ×4 (00:53→21:37)
[2022-07-26] MEDS: MEROPENEM 1,000 MG in SODIUM CHLORIDE 0.9% 100 ML IV SCH ×4 (00:53→21:36)
[2022-07-26] MEDS: MENTHOL/LANOLIN/CALAMINE/ZN OX OINT 71GM TOP SCH ×3 (00:54→21:37)
[2022-07-26] MEDS: NYSTATIN 100,000 UNITS/GM CREAM 15GM TOP SCH ×3 (00:54→21:37)
[2022-07-26 01:08] LABS: HEMATOCRIT 28.9 % (36.0-48.0); HEMOGLOBIN 8.8 g/dL (12.0-16.0)
[2022-07-26] MEDS: VANCOMYCIN 1GM PMX (XELLIA) 200 ML IV SCH (02:09)
[2022-07-26] MEDS: NOREPINEPHRINE 32 MG in DEXT 5% WATER 218 ML IV PRN (03:57)
[2022-07-26] MEDS: SODIUM CHLORIDE 0.9% IV SCH ×2 (04:55→16:25)
[2022-07-26] MEDS: POLYMYXIN B SULFATE IV SCH ×2 (04:55→16:25)
[2022-07-26 05:38] LABS: HEMATOCRIT. 34.5 % (36.0-48.0); HEMOGLOBIN. 10.6 g/dL (12.0-16.0); MEAN CORPUSCULAR HEMOGLOBIN 27.1 pg (28.0-32.0); MEAN CORPUSCULAR VOLUME 87.7 fL (81.0-99.0); MEAN PLATELET VOLUME 8.6 fl (7.4-10.4); PLATELET 301 x1000/uL (130-400); RED BLOOD CELL COUNT 3.93 mill/uL (4.2-5.4); RED CELL DISTRIBUTION WIDTH 18.2 % (11.6-14.6)
[2022-07-26 05:46] LABS: BG BASE EXCESS -17.6 mmol/L (-2.0-2.0); BG CARBOXYHEMOGLOBIN 0.3 % (0.5-1.5); BG DEOXYHEMOGLOBIN 7.7 % (0.0-5.0); BG FRACTION INSPIRED OXYGEN 30; BG HCO3 ACT 10.2 mmol/L (22.0-26.0); BG METHEMOGLOBIN 0.3 % (0.0-1.5); BG OXYGEN SATURATION 92.3 % (92.0-98.5); BG OXYHEMOGLOBIN 91.7 % (94.0-97.0); BG PCO2 30.8 mmHg (35.0-45.0); BG PH 7.136 (7.350-7.450); BG PO2 68.1 mmHg (75.0-100.0); BG SAMPLE SITE RIGHT RADIAL; BG TOTAL HEMOGLOBIN 11.3 g/dL (12.0-18.0); BG TOTAL RESPIRATORY RATE 19 b/min
[2022-07-26 05:55] LABS: CHLORIDE 124 mEq/L (98-107)
[2022-07-26] MEDS: INSULIN LISPRO 100 UNITS/ML SUBCUT SCH ×5 (06:00→23:54)
[2022-07-26] MEDS ORDERED: SODIUM BICARBONATE 8.4% 1 MEQ/ML 50ML SYR IV NR ×2 (06:15→12:00)
[2022-07-26 07:57] LABS: PLATELET ESTIMATE NORMAL
[2022-07-26] MEDS: PANTOPRAZOLE SODIUM 40 MG/VIAL IV SCH (08:10)
[2022-07-26] MEDS: DULOXETINE HCL 30MG DR CAPSULE PO SCH (08:10)
[2022-07-26] MEDS: MIDODRINE HCL 2.5MG TABLET PEG SCH ×3 (08:11→16:24)
[2022-07-26] MEDS: DOCUSATE SODIUM SUGAR FREE 100MG/10ML UDC NG SCH ×2 (08:11→16:24)
[2022-07-26] MEDS: GABAPENTIN SOLN 300MG/6ML UDC NG SCH ×2 (08:15→16:24)
[2022-07-26 09:02] LABS: BG BASE EXCESS -15.9 mmol/L (-2.0-2.0); BG CARBOXYHEMOGLOBIN 0.3 % (0.5-1.5); BG DEOXYHEMOGLOBIN 6.3 % (0.0-5.0); BG FRACTION INSPIRED OXYGEN 40; BG HCO3 ACT 11.1 mmol/L (22.0-26.0); BG METHEMOGLOBIN 0.4 % (0.0-1.5); BG OXYGEN SATURATION 93.7 % (92.0-98.5); BG PCO2 30.2 mmHg (35.0-45.0); BG PH 7.183 (7.350-7.450); BG PO2 71.8 mmHg (75.0-100.0); BG SAMPLE SITE RIGHT RADIAL; BG TOTAL HEMOGLOBIN 10.4 g/dL (12.0-18.0); BG VENT MODE VENT - AC
[2022-07-26 09:16] LABS: HEMATOCRIT 33.2 % (36.0-48.0); HEMOGLOBIN 10.6 g/dL (12.0-16.0)
[2022-07-26] MEDS: SODIUM BICARBONATE 150 MEQ in DEXTROSE 5% WATER 1,000 ML IV SCH (09:48)
[2022-07-26 11:49] LABS: BG BASE EXCESS -15.3 mmol/L (-2.0-2.0); BG DEOXYHEMOGLOBIN 7.5 % (0.0-5.0); BG FRACTION INSPIRED OXYGEN 40; BG HCO3 ACT 11.4 mmol/L (22.0-26.0); BG METHEMOGLOBIN 0.3 % (0.0-1.5); BG OXYGEN SATURATION 92.5 % (92.0-98.5); BG OXYHEMOGLOBIN 92.2 % (94.0-97.0); BG PCO2 30.2 mmHg (35.0-45.0); BG PH 7.196 (7.350-7.450); BG PO2 65.8 mmHg (75.0-100.0); BG SAMPLE SITE RIGHT RADIAL; BG TOTAL HEMOGLOBIN 11.4 g/dL (12.0-18.0); BG VENT MODE VENT - AC
[2022-07-26] MEDS: SULFAMETHOXAZOLE/TRIMETHOPRIM 800/160MG TABLET PO SCH ×2 (12:23→21:37)
[2022-07-26] MEDS: FLUCONAZOLE 200 MG/100ML BAG 100 ML IV SCH (12:50)
[2022-07-26 15:35] LABS: HEMATOCRIT 33.7 % (36.0-48.0); HEMOGLOBIN 10.5 g/dL (12.0-16.0)
[2022-07-26 16:21] LABS: BG BASE EXCESS -7.2 mmol/L (-2.0-2.0); BG CARBOXYHEMOGLOBIN 0.3 % (0.5-1.5); BG DEOXYHEMOGLOBIN 6.2 % (0.0-5.0); BG FRACTION INSPIRED OXYGEN 40; BG HCO3 ACT 16.4 mmol/L (22.0-26.0); BG METHEMOGLOBIN 0.3 % (0.0-1.5); BG OXYGEN SATURATION 93.8 % (92.0-98.5); BG OXYHEMOGLOBIN 93.2 % (94.0-97.0); BG PCO2 27.5 mmHg (35.0-45.0); BG PH 7.394 (7.350-7.450); BG PO2 64.3 mmHg (75.0-100.0); BG SAMPLE SITE RIGHT RADIAL; BG TOTAL HEMOGLOBIN 10.8 g/dL (12.0-18.0); BG VENT MODE VENT - AC
[2022-07-26 19:50] LABS: HEMATOCRIT 32.7 % (36.0-48.0); HEMOGLOBIN 10.5 g/dL (12.0-16.0)
[2022-07-27] VITALS (102 sets, daily range): BP systolic 36–175; BP diastolic 16–100
[2022-07-27] MEDS: IPRATROPIUM/ALBUTEROL 0.5-3(2.5)MG/3ML NEB HHN SCH ×7 (00:34→23:31)
[2022-07-27 00:54] LABS: HEMATOCRIT 35.4 % (36.0-48.0); HEMOGLOBIN 11.6 g/dL (12.0-16.0)
[2022-07-27] MEDS: SODIUM CHLORIDE 0.9% IV SCH ×2 (05:11→17:02)
[2022-07-27] MEDS: POLYMYXIN B SULFATE IV SCH ×2 (05:11→17:02)
[2022-07-27] MEDS: NOREPINEPHRINE 32 MG in DEXT 5% WATER 218 ML IV PRN (05:11)
[2022-07-27 05:17] LABS: BASOPHILS % 0.7 % (0.0-2.0); EOSINOPHILS % 1.5 % (0.0-5.0); HEMATOCRIT. 32.4 % (36.0-48.0); HEMOGLOBIN. 10.5 g/dL (12.0-16.0); LYMPHOCYTES % 9.6 % (20.0-50.0); MEAN CORPUSCULAR HEMOGLOBIN 27.2 pg (28.0-32.0); MEAN CORPUSCULAR VOLUME 83.8 fL (81.0-99.0); MEAN PLATELET VOLUME 8.6 fl (7.4-10.4); MONOCYTES % 5.5 % (2.0-8.0); NEUTROPHILS % 82.7 % (40.0-76.0); PLATELET 307 x1000/uL (130-400); RED BLOOD CELL COUNT 3.86 mill/uL (4.2-5.4); RED CELL DISTRIBUTION WIDTH 18.5 % (11.6-14.6)
[2022-07-27 05:33] LABS: CHLORIDE 121 mEq/L (98-107)
[2022-07-27 05:47] LABS: PHOSPHORUS 1.8 mg/dL (2.5-4.9)
[2022-07-27] MEDS: METOCLOPRAMIDE HCL 10MG/2ML VIAL IV SCH ×3 (05:47→17:03)
[2022-07-27] MEDS: METRONIDAZOLE 500MG TABLET PEG SCH ×3 (05:47→22:34)
[2022-07-27] MEDS: SODIUM BICARBONATE 150 MEQ in DEXTROSE 5% WATER 1,000 ML IV SCH (05:47)
[2022-07-27] MEDS: INSULIN LISPRO 100 UNITS/ML SUBCUT SCH ×3 (06:00→17:03)
[2022-07-27] MEDS: BLOOD SUGAR DIAGNOSTIC STRIP TEST SCH ×3 (06:57→17:04)
[2022-07-27] MEDS: MEROPENEM 1,000 MG in SODIUM CHLORIDE 0.9% 100 ML IV SCH ×3 (06:57→22:36)
[2022-07-27] MEDS: ACETAMINOPHEN 650MG/20.3ML UDC GT PRN ×2 (08:40→22:34)
[2022-07-27] MEDS: SULFAMETHOXAZOLE/TRIMETHOPRIM 800/160MG TABLET PO SCH ×2 (08:40→21:51)
[2022-07-27] MEDS: DOCUSATE SODIUM SUGAR FREE 100MG/10ML UDC NG SCH ×2 (08:40→17:01)
[2022-07-27] MEDS: DULOXETINE HCL 30MG DR CAPSULE PO SCH (08:40)
[2022-07-27] MEDS: GABAPENTIN SOLN 300MG/6ML UDC NG SCH ×2 (08:40→17:01)
[2022-07-27] MEDS: PANTOPRAZOLE SODIUM 40 MG/VIAL IV SCH (08:40)
[2022-07-27] MEDS: MIDODRINE HCL 2.5MG TABLET PEG SCH (08:40)
[2022-07-27] MEDS: NYSTATIN 100,000 UNITS/GM CREAM 15GM TOP SCH ×2 (08:41→21:51)
[2022-07-27] MEDS: MENTHOL/LANOLIN/CALAMINE/ZN OX OINT 71GM TOP SCH ×2 (08:41→21:51)
[2022-07-27 08:58] LABS: BG BASE EXCESS -3.4 mmol/L (-2.0-2.0); BG DEOXYHEMOGLOBIN 4.4 % (0.0-5.0); BG FRACTION INSPIRED OXYGEN 55; BG METHEMOGLOBIN 0.3 % (0.0-1.5); BG OXYGEN SATURATION 95.6 % (92.0-98.5); BG OXYHEMOGLOBIN 95.3 % (94.0-97.0); BG PCO2 25.9 mmHg (35.0-45.0); BG PH 7.483 (7.350-7.450); BG PO2 78.8 mmHg (75.0-100.0); BG SAMPLE SITE RIGHT RADIAL; BG TOTAL HEMOGLOBIN 10.2 g/dL (12.0-18.0); BG VENT MODE VENT - AC
[2022-07-27] MEDS ORDERED: MAGNESIUM 2 G PREMIX 50 ML IV NR (09:30)
[2022-07-27] MEDS ORDERED: FUROSEMIDE 40MG/4ML VIAL IVP SCH (09:45)
[2022-07-27] MEDS: POTASSIUM PHOS,M-BASIC-D-BASIC 20 MMOL in DEXT 5% WATER 243.3333 ML IV SCH ×2 (10:31→17:03)
[2022-07-27] MEDS: DEXT 5%/0.45% NACL 1000ML 1,000 ML IV SCH ×2 (10:32→21:45)
[2022-07-27] MEDS ORDERED: SODIUM BICARBONATE 100 MEQ in DEXTROSE 5% WATER 1,000 ML IV SCH (11:00)
[2022-07-27] MEDS: MIDODRINE HCL 5MG TABLET PEG SCH ×2 (12:34→22:34)
[2022-07-27 12:36] LABS: HEMOGLOBIN 9.8 g/dL (12.0-16.0)
[2022-07-27] MEDS: FLUCONAZOLE 200 MG/100ML BAG 100 ML IV SCH (13:20)
[2022-07-27] MEDS ORDERED: NALOXONE HCL 0.4MG/ML VIAL IV PRN (16:45)
[2022-07-27] MEDS: TRAMADOL 50MG TABLET PO PRN (17:02)
[2022-07-28] VITALS (92 sets, daily range): BP systolic 52–161; BP diastolic 35–88
[2022-07-28] MEDS: METOCLOPRAMIDE HCL 10MG/2ML VIAL IV SCH ×5 (00:32→23:20)
[2022-07-28] MEDS: INSULIN LISPRO 100 UNITS/ML SUBCUT SCH ×5 (00:38→23:24)
[2022-07-28] MEDS: IPRATROPIUM/ALBUTEROL 0.5-3(2.5)MG/3ML NEB HHN SCH ×5 (03:35→20:07)
[2022-07-28] MEDS: SODIUM CHLORIDE 0.9% IV SCH ×2 (04:42→18:28)
[2022-07-28] MEDS: POLYMYXIN B SULFATE IV SCH ×2 (04:42→18:28)
[2022-07-28] MEDS: TRAMADOL 50MG TABLET PO PRN ×2 (04:43→13:09)
[2022-07-28 05:36] LABS: BASOPHILS % 0.8 % (0.0-2.0); EOSINOPHILS % 2.2 % (0.0-5.0); HEMOGLOBIN. 9.6 g/dL (12.0-16.0); LYMPHOCYTES % 12.4 % (20.0-50.0); MEAN CORPUSCULAR HEMOGLOBIN 27.2 pg (28.0-32.0); MEAN CORPUSCULAR VOLUME 84.6 fL (81.0-99.0); MEAN PLATELET VOLUME 8.2 fl (7.4-10.4); MONOCYTES % 5.5 % (2.0-8.0); NEUTROPHILS % 79.1 % (40.0-76.0); PLATELET 260 x1000/uL (130-400); RED BLOOD CELL COUNT 3.55 mill/uL (4.2-5.4); RED CELL DISTRIBUTION WIDTH 18.8 % (11.6-14.6)
[2022-07-28 05:59] LABS: CHLORIDE 118 mEq/L (98-107)
[2022-07-28] MEDS: BLOOD SUGAR DIAGNOSTIC STRIP TEST SCH ×5 (06:00→23:16)
[2022-07-28] MEDS: MEROPENEM 1,000 MG in SODIUM CHLORIDE 0.9% 100 ML IV SCH ×3 (06:20→21:09)
[2022-07-28] MEDS: MIDODRINE HCL 5MG TABLET PEG SCH ×3 (06:20→21:11)
[2022-07-28] MEDS: METRONIDAZOLE 500MG TABLET PEG SCH ×3 (06:20→21:10)
[2022-07-28] MEDS ORDERED: FUROSEMIDE 40MG/4ML VIAL IVP NR (08:00)
[2022-07-28 08:10] LABS: BG BASE EXCESS -6.4 mmol/L (-2.0-2.0); BG CARBOXYHEMOGLOBIN 0.3 % (0.5-1.5); BG DEOXYHEMOGLOBIN 3.5 % (0.0-5.0); BG FRACTION INSPIRED OXYGEN 70; BG HCO3 ACT 18.8 mmol/L (22.0-26.0); BG METHEMOGLOBIN 0.2 % (0.0-1.5); BG OXYGEN SATURATION 96.5 % (92.0-98.5); BG PCO2 35.9 mmHg (35.0-45.0); BG PH 7.336 (7.350-7.450); BG SAMPLE SITE RIGHT RADIAL; BG TOTAL HEMOGLOBIN 9.9 g/dL (12.0-18.0); BG VENT MODE VENT - AC
[2022-07-28] MEDS: DULOXETINE HCL 30MG DR CAPSULE PO SCH (09:58)
[2022-07-28] MEDS: DOCUSATE SODIUM SUGAR FREE 100MG/10ML UDC NG SCH ×2 (09:58→18:28)
[2022-07-28] MEDS: PANTOPRAZOLE SODIUM 40 MG/VIAL IV SCH (09:59)
[2022-07-28] MEDS: SODIUM BICARBONATE 50 MEQ in DEXTROSE 5% WATER 1,000 ML IV SCH (09:59)
[2022-07-28] MEDS: SULFAMETHOXAZOLE/TRIMETHOPRIM 800/160MG TABLET PO SCH ×2 (09:59→21:11)
[2022-07-28] MEDS: NOREPINEPHRINE 32 MG in DEXT 5% WATER 218 ML IV PRN (10:00)
[2022-07-28] MEDS: NYSTATIN 100,000 UNITS/GM CREAM 15GM TOP SCH ×2 (10:01→21:13)
[2022-07-28] MEDS: MENTHOL/LANOLIN/CALAMINE/ZN OX OINT 71GM TOP SCH ×2 (10:01→21:13)
[2022-07-28] MEDS: GABAPENTIN SOLN 300MG/6ML UDC NG SCH ×2 (10:41→18:28)
[2022-07-28] MEDS: KCL 20MEQ/100ML PREMIX 100 ML IV SCH ×2 (10:41→13:09)
[2022-07-28] MEDS: FLUCONAZOLE 200 MG/100ML BAG 100 ML IV SCH (12:48)
[2022-07-28] MEDS: ACETYLCYSTEINE 100MG/ML 10% VIAL 4ML INH SCH (16:12)
[2022-07-29] VITALS (98 sets, daily range): BP systolic 78–181; BP diastolic 37–100
[2022-07-29] MEDS: IPRATROPIUM/ALBUTEROL 0.5-3(2.5)MG/3ML NEB HHN SCH ×6 (00:09→20:50)
[2022-07-29] MEDS: ACETYLCYSTEINE 100MG/ML 10% VIAL 4ML INH SCH ×3 (00:09→15:54)
[2022-07-29 01:38] LABS: BG BASE EXCESS -6.6 mmol/L (-2.0-2.0); BG CARBOXYHEMOGLOBIN 0.4 % (0.5-1.5); BG DEOXYHEMOGLOBIN 25.1 % (0.0-5.0); BG FRACTION INSPIRED OXYGEN 80; BG HCO3 ACT 19.8 mmol/L (22.0-26.0); BG METHEMOGLOBIN 0.1 % (0.0-1.5); BG OXYGEN SATURATION 74.8 % (92.0-98.5); BG OXYHEMOGLOBIN 74.4 % (94.0-97.0); BG PH 7.281 (7.350-7.450); BG PO2 42.7 mmHg (75.0-100.0); BG SAMPLE SITE RIGHT RADIAL; BG TOTAL HEMOGLOBIN 11.7 g/dL (12.0-18.0); BG TOTAL RESPIRATORY RATE 26 b/min
[2022-07-29] MEDS ORDERED: SODIUM BICARBONATE 8.4% 1 MEQ/ML 50ML SYR IV NR (02:00)
[2022-07-29] MEDS: POLYMYXIN B SULFATE IV SCH ×2 (04:15→18:06)
[2022-07-29] MEDS: SODIUM CHLORIDE 0.9% IV SCH ×2 (04:15→18:06)
[2022-07-29 05:21] LABS: HEMOGLOBIN. 11.3 g/dL (12.0-16.0); MEAN CORPUSCULAR HEMOGLOBIN 27.3 pg (28.0-32.0); MEAN CORPUSCULAR VOLUME 84.7 fL (81.0-99.0); MEAN PLATELET VOLUME 8.3 fl (7.4-10.4); PLATELET 264 x1000/uL (130-400); RED BLOOD CELL COUNT 4.14 mill/uL (4.2-5.4)
[2022-07-29 05:48] LABS: CHLORIDE 118 mEq/L (98-107)
[2022-07-29] MEDS: BLOOD SUGAR DIAGNOSTIC STRIP TEST SCH ×3 (05:48→18:06)
[2022-07-29] MEDS: MEROPENEM 1,000 MG in SODIUM CHLORIDE 0.9% 100 ML IV SCH ×3 (06:32→21:25)
[2022-07-29] MEDS: METOCLOPRAMIDE HCL 10MG/2ML VIAL IV SCH ×3 (06:32→18:05)
[2022-07-29] MEDS: MIDODRINE HCL 5MG TABLET PEG SCH ×3 (06:32→21:25)
[2022-07-29] MEDS: INSULIN LISPRO 100 UNITS/ML SUBCUT SCH ×3 (06:34→18:05)
[2022-07-29 07:30] LABS: BG BASE EXCESS -3.5 mmol/L (-2.0-2.0); BG CARBOXYHEMOGLOBIN 0.3 % (0.5-1.5); BG DEOXYHEMOGLOBIN 9.2 % (0.0-5.0); BG HCO3 ACT 21.9 mmol/L (22.0-26.0); BG METHEMOGLOBIN 0.3 % (0.0-1.5); BG OXYGEN SATURATION 90.7 % (92.0-98.5); BG OXYHEMOGLOBIN 90.2 % (94.0-97.0); BG PCO2 40.6 mmHg (35.0-45.0); BG PH 7.349 (7.350-7.450); BG PO2 63.5 mmHg (75.0-100.0); BG SAMPLE SITE RIGHT RADIAL; BG TOTAL HEMOGLOBIN 10.7 g/dL (12.0-18.0); BG VENT MODE VENT - AC
[2022-07-29] MEDS ORDERED: CALCIUM CHLORIDE 1GM/10ML SYR IV ONE (08:19)
[2022-07-29] MEDS ORDERED: SODIUM BICARBONATE 8.4% 1 MEQ/ML 50ML SYR IV ONE (08:19)
[2022-07-29] MEDS ORDERED: EPINEPHRINE 0.1MG/ML (1:10,000) 10ML SYR ONE (08:19)
[2022-07-29] MEDS: DOCUSATE SODIUM SUGAR FREE 100MG/10ML UDC NG SCH ×2 (09:21→17:00)
[2022-07-29] MEDS: PANTOPRAZOLE SODIUM 40 MG/VIAL IV SCH (09:21)
[2022-07-29] MEDS: DULOXETINE HCL 30MG DR CAPSULE PO SCH (09:21)
[2022-07-29] MEDS: GABAPENTIN SOLN 300MG/6ML UDC NG SCH ×2 (09:21→17:00)
[2022-07-29] MEDS: SULFAMETHOXAZOLE/TRIMETHOPRIM 800/160MG TABLET PO SCH ×2 (09:21→21:25)
[2022-07-29] MEDS: MENTHOL/LANOLIN/CALAMINE/ZN OX OINT 71GM TOP SCH ×2 (09:22→21:25)
[2022-07-29] MEDS: SODIUM BICARBONATE 50 MEQ in DEXTROSE 5% WATER 1,000 ML IV SCH (09:22)
[2022-07-29] MEDS: NYSTATIN 100,000 UNITS/GM CREAM 15GM TOP SCH ×2 (09:22→21:26)
[2022-07-29] MEDS ORDERED: FUROSEMIDE 20MG/2ML VIAL IVP NR (12:00)
[2022-07-29 12:01] LABS: NUCLEATED RED BLOOD CELLS 1 /100 WBC; PLATELET ESTIMATE NORMAL
[2022-07-29] MEDS: FLUCONAZOLE 200 MG/100ML BAG 100 ML IV SCH (13:27)
[2022-07-29 16:27] LABS: INR 1.6; PROTHROMBIN TIME 16.6 sec (9.6-11.0)
[2022-07-29] MEDS: NOREPINEPHRINE 32 MG in DEXT 5% WATER 218 ML IV PRN (18:06)
[2022-07-30] VITALS (96 sets, daily range): BP systolic 78–174; BP diastolic 40–96
[2022-07-30] MEDS: METOCLOPRAMIDE HCL 10MG/2ML VIAL IV SCH ×4 (00:07→17:23)
[2022-07-30] MEDS: BLOOD SUGAR DIAGNOSTIC STRIP TEST SCH ×4 (00:08→17:33)
[2022-07-30] MEDS: ACETYLCYSTEINE 100MG/ML 10% VIAL 4ML INH SCH ×3 (00:36→15:34)
[2022-07-30] MEDS: IPRATROPIUM/ALBUTEROL 0.5-3(2.5)MG/3ML NEB HHN SCH ×6 (00:36→19:57)
[2022-07-30] MEDS: TRAMADOL 50MG TABLET PO PRN (02:20)
[2022-07-30] MEDS: SODIUM BICARBONATE 50 MEQ in DEXTROSE 5% WATER 1,000 ML IV SCH (04:40)
[2022-07-30] MEDS: POLYMYXIN B SULFATE IV SCH ×2 (04:41→17:23)
[2022-07-30] MEDS: SODIUM CHLORIDE 0.9% IV SCH ×2 (04:41→17:23)
[2022-07-30] MEDS: INSULIN LISPRO 100 UNITS/ML SUBCUT SCH ×4 (06:00→17:33)
[2022-07-30 06:09] LABS: BASOPHILS % 0.9 % (0.0-2.0); EOSINOPHILS % 1.9 % (0.0-5.0); HEMATOCRIT. 35.2 % (36.0-48.0); HEMOGLOBIN. 11.4 g/dL (12.0-16.0); LYMPHOCYTES % 8.5 % (20.0-50.0); MEAN CORPUSCULAR HEMOGLOBIN 28.1 pg (28.0-32.0); MEAN CORPUSCULAR VOLUME 86.9 fL (81.0-99.0); MEAN PLATELET VOLUME 8.5 fl (7.4-10.4); MONOCYTES % 5.6 % (2.0-8.0); NEUTROPHILS % 83.1 % (40.0-76.0); PLATELET 232 x1000/uL (130-400); RED BLOOD CELL COUNT 4.04 mill/uL (4.2-5.4); RED CELL DISTRIBUTION WIDTH 19.8 % (11.6-14.6)
[2022-07-30] MEDS: MIDODRINE HCL 5MG TABLET PEG SCH ×3 (06:10→21:31)
[2022-07-30] MEDS: MEROPENEM 1,000 MG in SODIUM CHLORIDE 0.9% 100 ML IV SCH ×3 (06:11→21:31)
[2022-07-30 06:17] LABS: PHOSPHORUS 3.4 mg/dL (2.5-4.9)
[2022-07-30] MEDS ORDERED: LACTULOSE 20G/30ML UDC PO PRN (07:30)
[2022-07-30] MEDS ORDERED: LACTULOSE 20G/30ML UDC PO NR (07:30)
[2022-07-30 07:40] LABS: BG BASE EXCESS 0.3 mmol/L (-2.0-2.0); BG CARBOXYHEMOGLOBIN 0.3 % (0.5-1.5); BG DEOXYHEMOGLOBIN 0.6 % (0.0-5.0); BG HCO3 ACT 22.6 mmol/L (22.0-26.0); BG METHEMOGLOBIN 0.3 % (0.0-1.5); BG OXYGEN SATURATION 99.4 % (92.0-98.5); BG OXYHEMOGLOBIN 98.8 % (94.0-97.0); BG PH 7.509 (7.350-7.450); BG PO2 293.3 mmHg (75.0-100.0); BG SAMPLE SITE RIGHT RADIAL; BG TOTAL HEMOGLOBIN 10.9 g/dL (12.0-18.0); BG VENT MODE VENT - AC
[2022-07-30] MEDS: DULOXETINE HCL 30MG DR CAPSULE PO SCH (09:00)
[2022-07-30] MEDS: DOCUSATE SODIUM SUGAR FREE 100MG/10ML UDC NG SCH ×2 (09:00→17:23)
[2022-07-30] MEDS: SULFAMETHOXAZOLE/TRIMETHOPRIM 800/160MG TABLET PO SCH ×2 (09:00→21:29)
[2022-07-30] MEDS: PANTOPRAZOLE SODIUM 40 MG/VIAL IV SCH (09:00)
[2022-07-30] MEDS: GABAPENTIN SOLN 300MG/6ML UDC NG SCH ×2 (09:10→17:33)
[2022-07-30] MEDS ORDERED: FUROSEMIDE 20MG/2ML VIAL IVP NR (11:15)
[2022-07-30] MEDS: NYSTATIN 100,000 UNITS/GM CREAM 15GM TOP SCH ×2 (12:01→21:29)
[2022-07-30] MEDS: MENTHOL/LANOLIN/CALAMINE/ZN OX OINT 71GM TOP SCH ×2 (12:02→21:30)
[2022-07-30] MEDS ORDERED: MAGNESIUM 1 G PREMIX 100 ML IV NR (12:30)
[2022-07-30] MEDS: FLUCONAZOLE 200 MG/100ML BAG 100 ML IV SCH (13:25)
[2022-07-30] MEDS: NOREPINEPHRINE 32 MG in DEXT 5% WATER 218 ML IV PRN (17:24)
[2022-07-31] VITALS (101 sets, daily range): BP systolic 82–150; BP diastolic 46–102
[2022-07-31] MEDS: ACETYLCYSTEINE 100MG/ML 10% VIAL 4ML INH SCH ×4 (00:11→23:44)
[2022-07-31] MEDS: IPRATROPIUM/ALBUTEROL 0.5-3(2.5)MG/3ML NEB HHN SCH ×7 (00:11→23:44)
[2022-07-31] MEDS: BLOOD SUGAR DIAGNOSTIC STRIP TEST SCH ×5 (00:15→23:59)
[2022-07-31] MEDS: SODIUM BICARBONATE 50 MEQ in DEXTROSE 5% WATER 1,000 ML IV SCH ×2 (00:32→21:30)
[2022-07-31] MEDS: METOCLOPRAMIDE HCL 10MG/2ML VIAL IV SCH ×5 (00:32→23:59)
[2022-07-31] MEDS ORDERED: SODIUM CHLORIDE 0.9% 1,000 ML IV SCH (05:15)
[2022-07-31 05:23] LABS: BASOPHILS % 0.7 % (0.0-2.0); EOSINOPHILS % 3.2 % (0.0-5.0); HEMATOCRIT. 33.6 % (36.0-48.0); HEMOGLOBIN. 10.5 g/dL (12.0-16.0); LYMPHOCYTES % 9.2 % (20.0-50.0); MEAN CORPUSCULAR HEMOGLOBIN 26.8 pg (28.0-32.0); MEAN PLATELET VOLUME 8.4 fl (7.4-10.4); MONOCYTES % 4.2 % (2.0-8.0); NEUTROPHILS % 82.7 % (40.0-76.0); PLATELET 253 x1000/uL (130-400); RED BLOOD CELL COUNT 3.91 mill/uL (4.2-5.4); RED CELL DISTRIBUTION WIDTH 19.9 % (11.6-14.6)
[2022-07-31] MEDS: INSULIN LISPRO 100 UNITS/ML SUBCUT SCH ×5 (05:28→23:59)
[2022-07-31] MEDS: MEROPENEM 1,000 MG in SODIUM CHLORIDE 0.9% 100 ML IV SCH ×3 (05:33→21:19)
[2022-07-31] MEDS: POLYMYXIN B SULFATE IV SCH ×2 (05:33→18:30)
[2022-07-31] MEDS: SODIUM CHLORIDE 0.9% IV SCH ×2 (05:33→18:30)
[2022-07-31] MEDS: MIDODRINE HCL 5MG TABLET PEG SCH ×3 (05:33→21:20)
[2022-07-31] MEDS: GABAPENTIN SOLN 300MG/6ML UDC NG SCH ×2 (09:16→18:31)
[2022-07-31] MEDS: DULOXETINE HCL 30MG DR CAPSULE PO SCH (09:16)
[2022-07-31] MEDS: DOCUSATE SODIUM SUGAR FREE 100MG/10ML UDC NG SCH ×2 (09:16→18:31)
[2022-07-31] MEDS: PANTOPRAZOLE SODIUM 40 MG/VIAL IV SCH (09:16)
[2022-07-31] MEDS: NYSTATIN 100,000 UNITS/GM CREAM 15GM TOP SCH ×2 (09:17→21:21)
[2022-07-31] MEDS: SULFAMETHOXAZOLE/TRIMETHOPRIM 800/160MG TABLET PO SCH (09:17)
[2022-07-31] MEDS: MENTHOL/LANOLIN/CALAMINE/ZN OX OINT 71GM TOP SCH ×2 (09:17→21:20)
[2022-07-31 09:49] LABS: BG BASE EXCESS -1.3 mmol/L (-2.0-2.0); BG CARBOXYHEMOGLOBIN 0.3 % (0.5-1.5); BG FRACTION INSPIRED OXYGEN 100; BG HCO3 ACT 21.9 mmol/L (22.0-26.0); BG METHEMOGLOBIN 0.6 % (0.0-1.5); BG OXYHEMOGLOBIN 98.1 % (94.0-97.0); BG PCO2 31.3 mmHg (35.0-45.0); BG PH 7.462 (7.350-7.450); BG PO2 200.3 mmHg (75.0-100.0); BG SAMPLE SITE LEFT RADIAL; BG TOTAL HEMOGLOBIN 10.5 g/dL (12.0-18.0); BG VENT MODE VENT - AC
[2022-07-31] MEDS: PHENYLEPHRINE 100 MG in DEXT 5% WATER 240 ML IV PRN (12:14)
[2022-07-31] MEDS: FLUCONAZOLE 200 MG/100ML BAG 100 ML IV SCH (13:13)
[2022-07-31] MEDS: NOREPINEPHRINE 32 MG in DEXT 5% WATER 218 ML IV PRN (18:30)
[2022-08-01] VITALS (99 sets, daily range): BP systolic 71–147; BP diastolic 30–82
[2022-08-01] MEDS: IPRATROPIUM/ALBUTEROL 0.5-3(2.5)MG/3ML NEB HHN SCH ×5 (03:31→19:34)
[2022-08-01] MEDS: SODIUM CHLORIDE 0.9% IV SCH ×2 (04:27→17:17)
[2022-08-01] MEDS: POLYMYXIN B SULFATE IV SCH ×2 (04:27→17:17)
[2022-08-01 05:52] LABS: HEMATOCRIT. 27.4 % (36.0-48.0); HEMOGLOBIN. 8.9 g/dL (12.0-16.0); MEAN CORPUSCULAR HEMOGLOBIN 27.3 pg (28.0-32.0); MEAN CORPUSCULAR VOLUME 84.5 fL (81.0-99.0); MEAN PLATELET VOLUME 8.8 fl (7.4-10.4); PLATELET 145 x1000/uL (130-400); RED BLOOD CELL COUNT 3.24 mill/uL (4.2-5.4); RED CELL DISTRIBUTION WIDTH 19.6 % (11.6-14.6)
[2022-08-01] MEDS: INSULIN LISPRO 100 UNITS/ML SUBCUT SCH ×3 (06:00→18:50)
[2022-08-01] MEDS: MEROPENEM 1,000 MG in SODIUM CHLORIDE 0.9% 100 ML IV SCH ×3 (06:01→21:45)
[2022-08-01] MEDS: MIDODRINE HCL 5MG TABLET PEG SCH ×3 (06:01→21:46)
[2022-08-01] MEDS: METOCLOPRAMIDE HCL 10MG/2ML VIAL IV SCH ×3 (06:02→18:49)
[2022-08-01] MEDS: BLOOD SUGAR DIAGNOSTIC STRIP TEST SCH ×3 (06:02→18:46)
[2022-08-01] MEDS: ACETYLCYSTEINE 100MG/ML 10% VIAL 4ML INH SCH ×2 (08:04→16:02)
[2022-08-01] MEDS: DOCUSATE SODIUM SUGAR FREE 100MG/10ML UDC NG SCH ×2 (08:51→17:17)
[2022-08-01] MEDS: PANTOPRAZOLE SODIUM 40 MG/VIAL IV SCH (08:51)
[2022-08-01] MEDS: DULOXETINE HCL 30MG DR CAPSULE PO SCH (08:51)
[2022-08-01] MEDS: TRAMADOL 50MG TABLET PO PRN ×2 (08:52→15:40)
[2022-08-01] MEDS: NYSTATIN 100,000 UNITS/GM CREAM 15GM TOP SCH ×2 (08:53→21:45)
[2022-08-01] MEDS: MENTHOL/LANOLIN/CALAMINE/ZN OX OINT 71GM TOP SCH ×2 (08:53→21:45)
[2022-08-01 09:07] LABS: PLATELET ESTIMATE NORMAL
[2022-08-01 09:29] LABS: BG BASE EXCESS -2.2 mmol/L (-2.0-2.0); BG CARBOXYHEMOGLOBIN 0.4 % (0.5-1.5); BG DEOXYHEMOGLOBIN 2.4 % (0.0-5.0); BG FRACTION INSPIRED OXYGEN 60; BG HCO3 ACT 21.7 mmol/L (22.0-26.0); BG METHEMOGLOBIN 0.3 % (0.0-1.5); BG OXYGEN SATURATION 97.6 % (92.0-98.5); BG OXYHEMOGLOBIN 96.9 % (94.0-97.0); BG PCO2 33.8 mmHg (35.0-45.0); BG PH 7.425 (7.350-7.450); BG PO2 108.3 mmHg (75.0-100.0); BG SAMPLE SITE RIGHT RADIAL; BG TOTAL HEMOGLOBIN 9.8 g/dL (12.0-18.0); BG VENT MODE VENT - AC
[2022-08-01] MEDS ORDERED: VANCOMYCIN 750MG PMX (XELLIA) 150 ML IV SCH (11:00)
[2022-08-01] MEDS: GABAPENTIN SOLN 300MG/6ML UDC NG SCH ×2 (11:12→17:17)
[2022-08-01] MEDS: FLUCONAZOLE 200 MG/100ML BAG 100 ML IV SCH (12:45)
[2022-08-01 13:47] LABS: CHLORIDE 107 mEq/L (98-107)
[2022-08-01] MEDS ORDERED: POTASSIUM CHLORIDE INJ 40 MEQ in DEXT 5% WATER 250 ML IV NR (17:00)
[2022-08-01] MEDS ORDERED: POTASSIUM CHLORIDE INJ 40 MEQ in DEXT 5% WATER 500 ML IV NR (17:30)
[2022-08-01] MEDS: SODIUM BICARBONATE 50 MEQ in DEXTROSE 5% WATER 1,000 ML IV SCH (18:49)
[2022-08-02] VITALS (97 sets, daily range): BP systolic 64–174; BP diastolic 36–117
[2022-08-02] MEDS: IPRATROPIUM/ALBUTEROL 0.5-3(2.5)MG/3ML NEB HHN SCH ×6 (00:24→20:30)
[2022-08-02] MEDS: ACETYLCYSTEINE 100MG/ML 10% VIAL 4ML INH SCH ×2 (00:24→07:53)
[2022-08-02] MEDS: BLOOD SUGAR DIAGNOSTIC STRIP TEST SCH ×5 (00:28→23:33)
[2022-08-02] MEDS: METOCLOPRAMIDE HCL 10MG/2ML VIAL IV SCH ×5 (00:41→23:33)
[2022-08-02] MEDS: INSULIN LISPRO 100 UNITS/ML SUBCUT SCH ×5 (00:41→23:33)
[2022-08-02] MEDS: NOREPINEPHRINE 32 MG in DEXT 5% WATER 218 ML IV PRN (03:41)
[2022-08-02] MEDS: ACETAMINOPHEN 650MG/20.3ML UDC GT PRN ×2 (03:50→21:45)
[2022-08-02] MEDS: SODIUM CHLORIDE 0.9% IV SCH ×2 (04:38→16:54)
[2022-08-02] MEDS: POLYMYXIN B SULFATE IV SCH ×2 (04:38→16:54)
[2022-08-02] MEDS: MEROPENEM 1,000 MG in SODIUM CHLORIDE 0.9% 100 ML IV SCH (05:29)
[2022-08-02] MEDS: MIDODRINE HCL 5MG TABLET PEG SCH ×3 (05:29→21:23)
[2022-08-02 05:33] LABS: CHLORIDE 104 mEq/L (98-107)
[2022-08-02] MEDS ORDERED: POTASSIUM CHLORIDE 20MEQ TABLET SR PO SCH (08:00)
[2022-08-02 08:40] LABS: BG BASE EXCESS -7.3 mmol/L (-2.0-2.0); BG CARBOXYHEMOGLOBIN 0.4 % (0.5-1.5); BG DEOXYHEMOGLOBIN 1.9 % (0.0-5.0); BG FRACTION INSPIRED OXYGEN 60; BG HCO3 ACT 16.6 mmol/L (22.0-26.0); BG METHEMOGLOBIN 0.3 % (0.0-1.5); BG OXYGEN SATURATION 98.1 % (92.0-98.5); BG OXYHEMOGLOBIN 97.4 % (94.0-97.0); BG PH 7.391 (7.350-7.450); BG PO2 117.1 mmHg (75.0-100.0); BG SAMPLE SITE RIGHT RADIAL; BG TOTAL HEMOGLOBIN 9.3 g/dL (12.0-18.0); BG VENT MODE VENT - AC
[2022-08-02] MEDS: GABAPENTIN SOLN 300MG/6ML UDC NG SCH ×2 (09:00→16:55)
[2022-08-02 09:03] LABS: HEMATOCRIT. 30.9 % (36.0-48.0); HEMOGLOBIN. 9.4 g/dL (12.0-16.0); MEAN CORPUSCULAR HEMOGLOBIN 27.1 pg (28.0-32.0); MEAN PLATELET VOLUME 9.2 fl (7.4-10.4); PLATELET 125 x1000/uL (130-400); RED BLOOD CELL COUNT 3.47 mill/uL (4.2-5.4); RED CELL DISTRIBUTION WIDTH 20.1 % (11.6-14.6)
[2022-08-02] MEDS: PANTOPRAZOLE SODIUM 40 MG/VIAL IV SCH (10:01)
[2022-08-02] MEDS: DULOXETINE HCL 30MG DR CAPSULE PO SCH (10:01)
[2022-08-02] MEDS: DOCUSATE SODIUM SUGAR FREE 100MG/10ML UDC NG SCH ×2 (10:01→16:54)
[2022-08-02] MEDS: MENTHOL/LANOLIN/CALAMINE/ZN OX OINT 71GM TOP SCH ×2 (10:47→20:00)
[2022-08-02] MEDS: NYSTATIN 100,000 UNITS/GM CREAM 15GM TOP SCH ×2 (10:48→20:00)
[2022-08-02] MEDS: FLUCONAZOLE 200 MG/100ML BAG 100 ML IV SCH (13:31)
[2022-08-02 14:55] LABS: PLATELET ESTIMATE SLIGHTLY DECREASED
[2022-08-02] MEDS: SODIUM BICARBONATE 50 MEQ in DEXTROSE 5% WATER 1,000 ML IV SCH (16:38)
[2022-08-02] MEDS: LEVOFLOXACIN 500MG TABLET PO SCH (16:38)
[2022-08-02] MEDS: METRONIDAZOLE 500MG TABLET PO SCH ×2 (16:42→23:33)
[2022-08-03] VITALS (103 sets, daily range): BP systolic 64–152; BP diastolic 31–87
[2022-08-03] MEDS: IPRATROPIUM/ALBUTEROL 0.5-3(2.5)MG/3ML NEB HHN SCH ×6 (00:18→20:58)
[2022-08-03 05:22] LABS: BASOPHILS % 0.2 % (0.0-2.0); EOSINOPHILS % 5.9 % (0.0-5.0); HEMATOCRIT. 29.1 % (36.0-48.0); HEMOGLOBIN. 8.9 g/dL (12.0-16.0); LYMPHOCYTES % 7.3 % (20.0-50.0); MEAN CORPUSCULAR HEMOGLOBIN 26.9 pg (28.0-32.0); MEAN CORPUSCULAR VOLUME 87.5 fL (81.0-99.0); MEAN PLATELET VOLUME 9.3 fl (7.4-10.4); MONOCYTES % 2.9 % (2.0-8.0); NEUTROPHILS % 83.7 % (40.0-76.0); PLATELET 140 x1000/uL (130-400); RED BLOOD CELL COUNT 3.33 mill/uL (4.2-5.4); RED CELL DISTRIBUTION WIDTH 19.8 % (11.6-14.6)
[2022-08-03 05:45] LABS: CHLORIDE 101 mEq/L (98-107)
[2022-08-03] MEDS: SODIUM CHLORIDE 0.9% IV SCH ×2 (05:51→17:02)
[2022-08-03] MEDS: POLYMYXIN B SULFATE IV SCH ×2 (05:51→17:02)
[2022-08-03] MEDS: MIDODRINE HCL 5MG TABLET PEG SCH ×3 (05:52→22:29)
[2022-08-03] MEDS: METOCLOPRAMIDE HCL 10MG/2ML VIAL IV SCH ×3 (05:52→18:16)
[2022-08-03] MEDS: INSULIN LISPRO 100 UNITS/ML SUBCUT SCH ×3 (05:52→18:00)
[2022-08-03] MEDS: BLOOD SUGAR DIAGNOSTIC STRIP TEST SCH ×3 (05:52→18:16)
[2022-08-03 06:13] LABS: INR 1.4; PROTHROMBIN TIME 14.5 sec (9.6-11.0)
[2022-08-03] MEDS: METRONIDAZOLE 500MG TABLET PO SCH ×2 (08:52→21:31)
[2022-08-03] MEDS: DULOXETINE HCL 30MG DR CAPSULE PO SCH (08:52)
[2022-08-03] MEDS: DOCUSATE SODIUM SUGAR FREE 100MG/10ML UDC NG SCH ×2 (08:52→17:02)
[2022-08-03] MEDS: PANTOPRAZOLE SODIUM 40 MG/VIAL IV SCH (08:52)
[2022-08-03] MEDS: MENTHOL/LANOLIN/CALAMINE/ZN OX OINT 71GM TOP SCH ×2 (08:53→21:32)
[2022-08-03] MEDS: NYSTATIN 100,000 UNITS/GM CREAM 15GM TOP SCH ×2 (08:53→21:32)
[2022-08-03] MEDS: GABAPENTIN SOLN 300MG/6ML UDC NG SCH ×2 (08:54→17:02)
[2022-08-03] MEDS ORDERED: ALBUMIN HUMAN 25GM/100ML (25%) IV NR (10:56)
[2022-08-03] MEDS ORDERED: NALOXONE HCL 0.4MG/ML VIAL IV PRN (11:00)
[2022-08-03] MEDS: LEVOFLOXACIN 500MG TABLET PO SCH (11:00)
[2022-08-03 11:02] LABS: BG BASE EXCESS -3.8 mmol/L (-2.0-2.0); BG CARBOXYHEMOGLOBIN 0.6 % (0.5-1.5); BG DEOXYHEMOGLOBIN 1.1 % (0.0-5.0); BG FRACTION INSPIRED OXYGEN 50; BG HCO3 ACT 19.8 mmol/L (22.0-26.0); BG METHEMOGLOBIN 0.3 % (0.0-1.5); BG OXYGEN SATURATION 98.9 % (92.0-98.5); BG PCO2 30.6 mmHg (35.0-45.0); BG PH 7.428 (7.350-7.450); BG PO2 140.8 mmHg (75.0-100.0); BG SAMPLE SITE LEFT RADIAL; BG TOTAL HEMOGLOBIN 9.6 g/dL (12.0-18.0); BG VENT MODE VENT - AC
[2022-08-03] MEDS: SODIUM BICARBONATE 50 MEQ in DEXTROSE 5% WATER 1,000 ML IV SCH (12:48)
[2022-08-03] MEDS: TRAMADOL 50MG TABLET PO PRN (18:25)
[2022-08-03] MEDS: NOREPINEPHRINE 32 MG in DEXT 5% WATER 218 ML IV PRN (22:34)
[2022-08-04] VITALS (95 sets, daily range): BP systolic 60–182; BP diastolic 27–125
[2022-08-04] MEDS: IPRATROPIUM/ALBUTEROL 0.5-3(2.5)MG/3ML NEB HHN SCH ×6 (00:45→20:36)
[2022-08-04] MEDS: ACETYLCYSTEINE 100MG/ML 10% VIAL 4ML INH SCH ×3 (00:45→16:19)
[2022-08-04] MEDS: TRAMADOL 50MG TABLET PO PRN ×2 (00:56→23:32)
[2022-08-04] MEDS: METOCLOPRAMIDE HCL 10MG/2ML VIAL IV SCH ×5 (00:56→23:28)
[2022-08-04] MEDS: POLYMYXIN B SULFATE IV SCH ×2 (05:00→17:32)
[2022-08-04] MEDS: SODIUM CHLORIDE 0.9% IV SCH ×2 (05:00→17:32)
[2022-08-04] MEDS: MIDODRINE HCL 5MG TABLET PEG SCH ×3 (05:14→21:44)
[2022-08-04 05:52] LABS: BASOPHILS % 1.5 % (0.0-2.0); EOSINOPHILS % 8.7 % (0.0-5.0); HEMATOCRIT. 24.4 % (36.0-48.0); HEMOGLOBIN. 7.8 g/dL (12.0-16.0); LYMPHOCYTES % 7.1 % (20.0-50.0); MEAN CORPUSCULAR HEMOGLOBIN 27.8 pg (28.0-32.0); MEAN CORPUSCULAR VOLUME 87.2 fL (81.0-99.0); MEAN PLATELET VOLUME 9.6 fl (7.4-10.4); MONOCYTES % 3.3 % (2.0-8.0); NEUTROPHILS % 79.4 % (40.0-76.0); PLATELET 121 x1000/uL (130-400); RED CELL DISTRIBUTION WIDTH 19.7 % (11.6-14.6)
[2022-08-04] MEDS: INSULIN LISPRO 100 UNITS/ML SUBCUT SCH ×5 (05:58→23:30)
[2022-08-04] MEDS: BLOOD SUGAR DIAGNOSTIC STRIP TEST SCH ×5 (06:00→23:28)
[2022-08-04 06:15] LABS: CHLORIDE 98 mEq/L (98-107)
[2022-08-04] MEDS: PANTOPRAZOLE SODIUM 40 MG/VIAL IV SCH (08:43)
[2022-08-04] MEDS: DOCUSATE SODIUM SUGAR FREE 100MG/10ML UDC NG SCH ×2 (08:43→17:32)
[2022-08-04] MEDS: NYSTATIN 100,000 UNITS/GM CREAM 15GM TOP SCH ×2 (08:44→21:36)
[2022-08-04] MEDS: METRONIDAZOLE 500MG TABLET PO SCH ×2 (08:44→21:34)
[2022-08-04] MEDS: DULOXETINE HCL 30MG DR CAPSULE PO SCH (08:44)
[2022-08-04] MEDS: MENTHOL/LANOLIN/CALAMINE/ZN OX OINT 71GM TOP SCH ×2 (08:45→21:36)
[2022-08-04] MEDS: GABAPENTIN SOLN 300MG/6ML UDC NG SCH ×2 (08:48→17:32)
[2022-08-04 09:07] LABS: BG BASE EXCESS -4.1 mmol/L (-2.0-2.0); BG CARBOXYHEMOGLOBIN 1.1 % (0.5-1.5); BG DEOXYHEMOGLOBIN 2.6 % (0.0-5.0); BG FRACTION INSPIRED OXYGEN 500; BG HCO3 ACT 20.1 mmol/L (22.0-26.0); BG METHEMOGLOBIN 0.3 % (0.0-1.5); BG OXYGEN SATURATION 97.4 % (92.0-98.5); BG PCO2 32.9 mmHg (35.0-45.0); BG PH 7.403 (7.350-7.450); BG SAMPLE SITE LEFT RADIAL; BG TOTAL HEMOGLOBIN 8.3 g/dL (12.0-18.0); BG VENT MODE VENT - AC
[2022-08-04] MEDS: SODIUM BICARBONATE 50 MEQ in DEXTROSE 5% WATER 1,000 ML IV SCH (09:43)
[2022-08-04] MEDS ORDERED: ALBUMIN HUMAN 25GM/100ML (25%) IV NR (10:00)
[2022-08-04] MEDS ORDERED: SODIUM CHLORIDE 0.9% 500 ML IV SCH (11:00)
[2022-08-04] MEDS: LEVOFLOXACIN 500MG TABLET PO SCH (11:21)
[2022-08-04] MEDS ORDERED: VANCOMYCIN 750MG PREMIX 150 ML IV SCH (12:00)
[2022-08-04] MEDS: PHENYLEPHRINE 100 MG in DEXT 5% WATER 240 ML IV PRN (15:20)
[2022-08-04] MEDS: NOREPINEPHRINE 32 MG in DEXT 5% WATER 218 ML IV PRN (16:06)
[2022-08-04 18:15] LABS: HEMATOCRIT 23.2 % (36.0-48.0); HEMOGLOBIN 7.4 g/dL (12.0-16.0)
[2022-08-05] VITALS (90 sets, daily range): BP systolic 70–169; BP diastolic 34–104
[2022-08-05] MEDS: NOREPINEPHRINE 32 MG in DEXT 5% WATER 218 ML IV PRN ×3 (00:21→18:12)
[2022-08-05] MEDS: ACETYLCYSTEINE 100MG/ML 10% VIAL 4ML INH SCH ×3 (00:51→16:01)
[2022-08-05] MEDS: IPRATROPIUM/ALBUTEROL 0.5-3(2.5)MG/3ML NEB HHN SCH ×6 (00:51→21:17)
[2022-08-05 01:52] LABS: HEMATOCRIT 24.3 % (36.0-48.0); HEMOGLOBIN 7.6 g/dL (12.0-16.0)
[2022-08-05 05:57] LABS: BASOPHILS % 0.5 % (0.0-2.0); EOSINOPHILS % 9.2 % (0.0-5.0); HEMATOCRIT. 25.3 % (36.0-48.0); HEMOGLOBIN. 7.9 g/dL (12.0-16.0); LYMPHOCYTES % 9.8 % (20.0-50.0); MEAN CORPUSCULAR HEMOGLOBIN 27.9 pg (28.0-32.0); MEAN CORPUSCULAR VOLUME 89.2 fL (81.0-99.0); MEAN PLATELET VOLUME 9.2 fl (7.4-10.4); MONOCYTES % 6.8 % (2.0-8.0); NEUTROPHILS % 73.7 % (40.0-76.0); PLATELET 143 x1000/uL (130-400); RED BLOOD CELL COUNT 2.84 mill/uL (4.2-5.4); RED CELL DISTRIBUTION WIDTH 19.9 % (11.6-14.6)
[2022-08-05] MEDS: BLOOD SUGAR DIAGNOSTIC STRIP TEST SCH ×4 (06:00→23:22)
[2022-08-05 06:02] LABS: CHLORIDE 100 mEq/L (98-107)
[2022-08-05] MEDS: SODIUM BICARBONATE 50 MEQ in DEXTROSE 5% WATER 1,000 ML IV SCH (06:09)
[2022-08-05] MEDS: TRAMADOL 50MG TABLET PO PRN (06:11)
[2022-08-05] MEDS: POLYMYXIN B SULFATE IV SCH ×2 (06:51→18:11)
[2022-08-05] MEDS: SODIUM CHLORIDE 0.9% IV SCH ×2 (06:51→18:11)
[2022-08-05] MEDS: MIDODRINE HCL 5MG TABLET PEG SCH ×3 (06:57→21:02)
[2022-08-05] MEDS: METOCLOPRAMIDE HCL 10MG/2ML VIAL IV SCH ×3 (06:57→18:11)
[2022-08-05] MEDS: INSULIN LISPRO 100 UNITS/ML SUBCUT SCH ×3 (07:16→18:00)
[2022-08-05] MEDS: MENTHOL/LANOLIN/CALAMINE/ZN OX OINT 71GM TOP SCH ×2 (08:46→21:02)
[2022-08-05] MEDS: METRONIDAZOLE 500MG TABLET PO SCH ×2 (08:48→21:01)
[2022-08-05] MEDS: DULOXETINE HCL 30MG DR CAPSULE PO SCH (08:48)
[2022-08-05] MEDS: GABAPENTIN SOLN 300MG/6ML UDC NG SCH ×2 (08:48→18:11)
[2022-08-05] MEDS: DOCUSATE SODIUM SUGAR FREE 100MG/10ML UDC NG SCH ×2 (08:48→18:11)
[2022-08-05] MEDS: PANTOPRAZOLE SODIUM 40 MG/VIAL IV SCH (08:49)
[2022-08-05] MEDS: NYSTATIN 100,000 UNITS/GM CREAM 15GM TOP SCH ×2 (08:50→21:02)
[2022-08-05 09:25] LABS: BG BASE EXCESS -1.2 mmol/L (-2.0-2.0); BG CARBOXYHEMOGLOBIN 1.3 % (0.5-1.5); BG FRACTION INSPIRED OXYGEN 60; BG HCO3 ACT 23.9 mmol/L (22.0-26.0); BG METHEMOGLOBIN 0.3 % (0.0-1.5); BG OXYHEMOGLOBIN 95.4 % (94.0-97.0); BG PCO2 41.7 mmHg (35.0-45.0); BG PH 7.376 (7.350-7.450); BG PO2 91.5 mmHg (75.0-100.0); BG SAMPLE SITE RIGHT RADIAL; BG TOTAL HEMOGLOBIN 8.5 g/dL (12.0-18.0); BG VENT MODE VENT - AC
[2022-08-05] MEDS ORDERED: ALBUMIN HUMAN 25GM/100ML (25%) IV NR (10:45)
[2022-08-05] MEDS: LEVOFLOXACIN 500MG TABLET PO SCH (11:25)
[2022-08-05 18:51] LABS: HEMOGLOBIN 7.7 g/dL (12.0-16.0)
[2022-08-06] VITALS (79 sets, daily range): BP systolic 73–140; BP diastolic 47–91
[2022-08-06] MEDS: IPRATROPIUM/ALBUTEROL 0.5-3(2.5)MG/3ML NEB HHN SCH ×5 (00:38→23:52)
[2022-08-06] MEDS: ACETYLCYSTEINE 100MG/ML 10% VIAL 4ML INH SCH ×4 (00:38→23:52)
[2022-08-06] MEDS: SODIUM BICARBONATE 50 MEQ in DEXTROSE 5% WATER 1,000 ML IV SCH (04:14)
[2022-08-06] MEDS: SODIUM CHLORIDE 0.9% IV SCH ×2 (04:14→18:01)
[2022-08-06] MEDS: POLYMYXIN B SULFATE IV SCH ×2 (04:14→18:01)
[2022-08-06] MEDS: MIDODRINE HCL 5MG TABLET PEG SCH ×3 (05:29→21:20)
[2022-08-06] MEDS: METOCLOPRAMIDE HCL 10MG/2ML VIAL IV SCH ×5 (05:29→23:18)
[2022-08-06] MEDS: INSULIN LISPRO 100 UNITS/ML SUBCUT SCH ×5 (05:30→23:20)
[2022-08-06] MEDS: BLOOD SUGAR DIAGNOSTIC STRIP TEST SCH ×4 (05:30→23:37)
[2022-08-06] MEDS: DULOXETINE HCL 30MG DR CAPSULE PO SCH (08:36)
[2022-08-06] MEDS: PANTOPRAZOLE SODIUM 40 MG/VIAL IV SCH (08:36)
[2022-08-06] MEDS: METRONIDAZOLE 500MG TABLET PO SCH ×2 (08:36→21:20)
[2022-08-06] MEDS: DOCUSATE SODIUM SUGAR FREE 100MG/10ML UDC NG SCH ×2 (08:36→18:01)
[2022-08-06 08:48] LABS: BG BASE EXCESS 0.5 mmol/L (-2.0-2.0); BG CARBOXYHEMOGLOBIN 1.1 % (0.5-1.5); BG DEOXYHEMOGLOBIN 5.3 % (0.0-5.0); BG FRACTION INSPIRED OXYGEN 40; BG HCO3 ACT 24.4 mmol/L (22.0-26.0); BG METHEMOGLOBIN 0.4 % (0.0-1.5); BG OXYGEN SATURATION 94.6 % (92.0-98.5); BG OXYHEMOGLOBIN 93.2 % (94.0-97.0); BG PCO2 36.1 mmHg (35.0-45.0); BG PH 7.448 (7.350-7.450); BG PO2 69.2 mmHg (75.0-100.0); BG SAMPLE SITE RIGHT RADIAL; BG TOTAL HEMOGLOBIN 8.6 g/dL (12.0-18.0); BG VENT MODE VENT - AC
[2022-08-06] MEDS: NYSTATIN 100,000 UNITS/GM CREAM 15GM TOP SCH ×2 (10:57→21:21)
[2022-08-06] MEDS: MENTHOL/LANOLIN/CALAMINE/ZN OX OINT 71GM TOP SCH ×2 (10:57→21:21)
[2022-08-06] MEDS: GABAPENTIN SOLN 300MG/6ML UDC NG SCH ×2 (10:58→18:01)
[2022-08-06 11:35] LABS: HEMOGLOBIN. 8.5 g/dL (12.0-16.0); MEAN CORPUSCULAR VOLUME 86.1 fL (81.0-99.0); MEAN PLATELET VOLUME 8.3 fl (7.4-10.4); PLATELET 284 x1000/uL (130-400); RED BLOOD CELL COUNT 3.02 mill/uL (4.2-5.4); RED CELL DISTRIBUTION WIDTH 18.4 % (11.6-14.6)
[2022-08-06] MEDS: LEVOFLOXACIN 500MG TABLET PO SCH (11:47)
[2022-08-06] MEDS: NOREPINEPHRINE 32 MG in DEXT 5% WATER 218 ML IV PRN (11:48)
[2022-08-06 12:14] LABS: CHLORIDE 98 mEq/L (98-107)
[2022-08-06 12:24] LABS: PHOSPHORUS 3.4 mg/dL (2.5-4.9)
[2022-08-06 12:40] LABS: NUCLEATED RED BLOOD CELLS 1 /100 WBC; PLATELET ESTIMATE NORMAL
[2022-08-06] MEDS ORDERED: MAGNESIUM 2 G PREMIX 50 ML IV NR (15:00)
[2022-08-07] VITALS (103 sets, daily range): BP systolic 65–135; BP diastolic 31–82
[2022-08-07] MEDS: SODIUM BICARBONATE 50 MEQ in DEXTROSE 5% WATER 1,000 ML IV SCH ×2 (00:32→21:34)
[2022-08-07] MEDS: IPRATROPIUM/ALBUTEROL 0.5-3(2.5)MG/3ML NEB HHN SCH ×4 (03:51→20:00)
[2022-08-07] MEDS: SODIUM CHLORIDE 0.9% IV SCH ×2 (04:16→17:55)
[2022-08-07] MEDS: POLYMYXIN B SULFATE IV SCH ×2 (04:16→17:55)
[2022-08-07] MEDS: NOREPINEPHRINE 32 MG in DEXT 5% WATER 218 ML IV PRN ×2 (04:17→21:34)
[2022-08-07] MEDS: BLOOD SUGAR DIAGNOSTIC STRIP TEST SCH ×3 (05:03→17:56)
[2022-08-07] MEDS: METOCLOPRAMIDE HCL 10MG/2ML VIAL IV SCH ×3 (05:08→17:56)
[2022-08-07] MEDS: MIDODRINE HCL 5MG TABLET PEG SCH ×3 (05:09→21:34)
[2022-08-07] MEDS: INSULIN LISPRO 100 UNITS/ML SUBCUT SCH ×3 (05:18→17:54)
[2022-08-07 05:32] LABS: HEMATOCRIT 26.3 % (36.0-48.0); HEMOGLOBIN 8.3 g/dL (12.0-16.0); MEAN CORPUSCULAR HEMOGLOBIN 27.3 pg (28.0-32.0); MEAN CORPUSCULAR VOLUME 86.4 fL (81.0-99.0); PLATELET 345 x1000/uL (130-400); RED BLOOD CELL COUNT 3.05 mill/uL (4.2-5.4); RED CELL DISTRIBUTION WIDTH 18.2 % (11.6-14.6)
[2022-08-07 05:58] LABS: CHLORIDE 96 mEq/L (98-107)
[2022-08-07 06:15] LABS: PHOSPHORUS 4.3 mg/dL (2.5-4.9)
[2022-08-07] MEDS: PANTOPRAZOLE SODIUM 40 MG/VIAL IV SCH (08:05)
[2022-08-07] MEDS: DOCUSATE SODIUM SUGAR FREE 100MG/10ML UDC NG SCH ×2 (08:05→17:56)
[2022-08-07] MEDS: GABAPENTIN SOLN 300MG/6ML UDC NG SCH ×2 (08:05→17:55)
[2022-08-07] MEDS: DULOXETINE HCL 30MG DR CAPSULE PO SCH (08:05)
[2022-08-07] MEDS: METRONIDAZOLE 500MG TABLET PO SCH ×2 (08:05→21:33)
[2022-08-07] MEDS: MENTHOL/LANOLIN/CALAMINE/ZN OX OINT 71GM TOP SCH ×2 (08:06→21:33)
[2022-08-07] MEDS: NYSTATIN 100,000 UNITS/GM CREAM 15GM TOP SCH ×2 (08:06→21:33)
[2022-08-07 09:09] LABS: BG BASE EXCESS -3.8 mmol/L (-2.0-2.0); BG CARBOXYHEMOGLOBIN 1.6 % (0.5-1.5); BG FRACTION INSPIRED OXYGEN 50; BG HCO3 ACT 20.6 mmol/L (22.0-26.0); BG METHEMOGLOBIN 0.3 % (0.0-1.5); BG OXYGEN SATURATION 92.9 % (92.0-98.5); BG OXYHEMOGLOBIN 91.1 % (94.0-97.0); BG PCO2 34.4 mmHg (35.0-45.0); BG PH 7.395 (7.350-7.450); BG SAMPLE SITE RIGHT RADIAL; BG TOTAL HEMOGLOBIN 8.1 g/dL (12.0-18.0); BG VENT MODE VENT - AC
[2022-08-07] MEDS ORDERED: VANCOMYCIN 1GM PMX (XELLIA) 200 ML IV SCH (11:00)
[2022-08-07] MEDS: LEVOFLOXACIN 500MG TABLET PO SCH (11:15)
[2022-08-07] MEDS ORDERED: MAGNESIUM 2 G PREMIX 50 ML IV SCH (11:30)
[2022-08-07] MEDS: PHENYLEPHRINE 100 MG in DEXT 5% WATER 240 ML IV PRN ×2 (12:16→21:35)
[2022-08-07] MEDS ORDERED: SODIUM CHLORIDE 3% FOR INH 4ML UD NEB INH SCH (12:30)
[2022-08-07] MEDS ORDERED: VASOPRESSIN 20 UNIT in SODIUM CHLORIDE 0.9% 99 ML IV STA (13:47)
[2022-08-07 13:50] LABS: BG BASE EXCESS -5.8 mmol/L (-2.0-2.0); BG CARBOXYHEMOGLOBIN 0.8 % (0.5-1.5); BG DEOXYHEMOGLOBIN 2.5 % (0.0-5.0); BG FRACTION INSPIRED OXYGEN 100; BG HCO3 ACT 20.1 mmol/L (22.0-26.0); BG METHEMOGLOBIN 0.4 % (0.0-1.5); BG OXYGEN SATURATION 97.5 % (92.0-98.5); BG OXYHEMOGLOBIN 96.3 % (94.0-97.0); BG PCO2 41.4 mmHg (35.0-45.0); BG PH 7.305 (7.350-7.450); BG PO2 107.6 mmHg (75.0-100.0); BG SAMPLE SITE RIGHT RADIAL; BG TOTAL HEMOGLOBIN 8.4 g/dL (12.0-18.0); BG VENT MODE VENT - AC
[2022-08-07] MEDS ORDERED: ALBUMIN HUMAN 25GM/100ML (25%) IV SCH (14:00)
[2022-08-07] MEDS ORDERED: SODIUM BICARBONATE 8.4% 1 MEQ/ML 50ML SYR IV NR (16:00)
[2022-08-07] MEDS: ACETYLCYSTEINE 100MG/ML 10% VIAL 4ML INH SCH ×2 (16:40→22:00)
[2022-08-07] MEDS ORDERED: VASOPRESSIN 20 UNIT in SODIUM CHLORIDE 0.9% 99 ML IV PRN (18:00)
[2022-08-07] MEDS ORDERED: DOPAMINE 400MG/250ML PREMIX 250 ML IV PRN (23:15)
[2022-08-07] MEDS ORDERED: DOPAMINE 800MG PREMIX (DOUBLE) 250 ML IV PRN (23:15)
[2022-08-08] VITALS (7 sets, daily range): BP systolic 36–71; BP diastolic 16–55
[2022-08-08] MEDS: IPRATROPIUM/ALBUTEROL 0.5-3(2.5)MG/3ML NEB HHN SCH
[2022-08-08] MEDS: INSULIN LISPRO 100 UNITS/ML SUBCUT SCH
[2022-08-08] MEDS: BLOOD SUGAR DIAGNOSTIC STRIP TEST SCH (00:28)
[2022-08-08] MEDS ORDERED: SODIUM BICARBONATE 8.4% 1 MEQ/ML 50ML SYR IV NR ×2 (00:30→01:15)
[2022-08-08] MEDS ORDERED: EPINEPHRINE 10 MG in SODIUM CHLORIDE 0.9% 240 ML IV PRN (00:30)
[2022-08-08] MEDS ORDERED: SODIUM BICARBONATE 8.4% 1 MEQ/ML 50ML SYR IV ONE ×2 (00:30→08:34)
[2022-08-08] MEDS: METOCLOPRAMIDE HCL 10MG/2ML VIAL IV SCH (01:04)
[2022-08-08 01:17] LABS: BG BASE EXCESS -6.1 mmol/L (-2.0-2.0); BG FRACTION INSPIRED OXYGEN 100; BG PCO2 36.6 mmHg (35.0-45.0); BG PH 7.333 (7.350-7.450); BG PO2 84.2 mmHg (75.0-100.0); BG SAMPLE SITE RIGHT RADIAL; BG TOTAL RESPIRATORY RATE 16 b/min; BG VENT MODE VENT - PRVC
[2022-08-08] MEDS ORDERED: EPINEPHRINE 0.1MG/ML (1:10,000) 10ML SYR ONE (08:34)
[2022-08-08] MEDS ORDERED: CALCIUM CHLORIDE 1GM/10ML SYR IV ONE (08:34)
== END 2022-08-08 03:39 | DRG 720 ==
LOC: ER 03:19 → MICUSO 06:54 → CVICU 09:58 → 5EST 07-19 00:01 → MICUNO 07-26 03:45
PROVIDERS: ADMIT Hospitalist; ATTEND Hospitalist
PROC: 5A1955Z Respiratory Ventilation, Greater than 96 Consecutive Hours (ICD-10-PCS; principal; 2022-07-11)
PROC: 05H433Z Insertion of Infusion Device into Left Innominate Vein, Percutaneous Approach (ICD-10-PCS; 2022-07-11)
PROC: B54NZZA Ultrasonography of Left Upper Extremity Veins, Guidance (ICD-10-PCS; 2022-07-11)
PROC: 0DH63UZ Insertion of Feeding Device into Stomach, Percutaneous Approach (ICD-10-PCS; 2022-07-21)
PROC: 30233N1 Transfusion of Nonautologous Red Blood Cells into Peripheral Vein, Percutaneous Approach (ICD-10-PCS; 2022-07-24)
PROC: 5A12012 Performance of Cardiac Output, Single, Manual (ICD-10-PCS; 2022-07-29)
PROC: 0BH17EZ Insertion of Endotracheal Airway into Trachea, Via Natural or Artificial Opening (ICD-10-PCS; 2022-08-07)
PROC: 5A12012 Performance of Cardiac Output, Single, Manual (ICD-10-PCS; 2022-08-08)
DX: A41.59 Other Gram-negative sepsis (principal); J80 Acute respiratory distress syndrome; R65.21 Severe sepsis with septic shock; J95.851 Ventilator associated pneumonia; G82.50 Quadriplegia, unspecified; E43 Unspecified severe protein-calorie malnutrition; K29.71 Gastritis, unspecified, with bleeding; G93.40 Encephalopathy, unspecified; I46.9 Cardiac arrest, cause unspecified; Z93.0 Tracheostomy status; Z99.11 Dependence on respirator [ventilator] status; I50.33 Acute on chronic diastolic (congestive) heart failure; J15.6 Pneumonia due to other Gram-negative bacteria; J44.0 Chronic obstructive pulmonary disease with (acute) lower respiratory infection; E87.0 Hyperosmolality and hypernatremia; E11.9 Type 2 diabetes mellitus without complications; E87.6 Hypokalemia; L30.9 Dermatitis, unspecified; B37.9 Candidiasis, unspecified; B95.62 Methicillin resistant Staphylococcus aureus infection as the cause of diseases classified elsewhere; B96.1 Klebsiella pneumoniae [K. pneumoniae] as the cause of diseases classified elsewhere; D50.0 Iron deficiency anemia secondary to blood loss (chronic); E83.39 Other disorders of phosphorus metabolism; E83.42 Hypomagnesemia; E87.1 Hypo-osmolality and hyponatremia; E88.09 Other disorders of plasma-protein metabolism, not elsewhere classified; I11.0 Hypertensive heart disease with heart failure; I27.20 Pulmonary hypertension, unspecified; K85.90 Acute pancreatitis without necrosis or infection, unspecified; L03.115 Cellulitis of right lower limb; L89.319 Pressure ulcer of right buttock, unspecified stage; M41.9 Scoliosis, unspecified; N20.0 Calculus of kidney; R13.12 Dysphagia, oropharyngeal phase; Z20.822 Contact with and (suspected) exposure to COVID-19; R18.8 Other ascites; E87.8 Other disorders of electrolyte and fluid balance, not elsewhere classified; Z16.12 Extended spectrum beta lactamase (ESBL) resistance; K21.9 Gastro-esophageal reflux disease without esophagitis; M19.90 Unspecified osteoarthritis, unspecified site; I69.398 Other sequelae of cerebral infarction; Z88.8 Allergy status to other drugs, medicaments and biological substances; Z91.09 Other allergy status, other than to drugs and biological substances; Z79.899 Other long term (current) drug therapy; Z68.33 Body mass index [BMI] 33.0-33.9, adult
CPT/HCPCS: 31500; 36415; 36573; 36600; 71045; 71275; 74018; 74176; 76705; 80048; 80053; 80061; 80076; 80200; 80202; 81003; 82040; 82270; 82375; 82550; 82607; 82728; 82746; 82805; 82962; 83036; 83540; 83550; 83605; 83735; 83880; 84100; 84134; 84145; 84484; 85014; 85018; 85025; 85027; 85044; 85379; 85651; 86140; 86850; 86900; 86920; 87070; 87077; 87106; 87186; 87426; 92610; 92950; 93005; 93306; 93922; 93970; 94002; 94003; 94640; 94667; 97162; 99291; A6261; C1725; C9113; J0295; J0692; J1170; J1265; J1450; J1650; J1815; J1940; J1956; J2185; J2250; J2370; J2405; J2543; J2704; J2765; J3010; J3260; J3370; J3475; J3480; J3490; J7040; J7050; J7060; J7070; J7608; P9016; P9047; Q9967; A4315